=== PATIENT | female | born 1990 | race Caucasian/White ===

== ENCOUNTER 2020-03-05 08:18 | Inpatient (IN) | payer OTHER, SELFPAY ==
[2020-03-05] VITALS (10 sets, daily range): BP systolic 135–164; BP diastolic 79–115; PULSE 70–82; RESP 16–20; TEMP 36.2–37; O2SAT 95–100; BMI 28.2
--- NOTE | ~2020-03-05 | CT_ITS ---
EXAMINATION: CT abdomen pelvis w con INDICATION: Severe abdominal pain TECHNIQUE: Computed tomographic images of the abdomen and pelvis were obtained after the administrati on of 100 cc of Omnipaque 350 intravenous contrast. The dose-length product (DLP) was 530.49 mGy-cm. Automated exposure control and iterative reconstruction technique were employed. COMPARISON: 01/06/2019 FINDINGS: Minimal dependent atelectasis is present in the lung bases. The heart size is normal. The l iver is diffusely low in attenuation when compared with the spleen, consistent with hepatic steatosis . The spleen, gallbladder, adrenal glands, and left kidney are normal. Nonobstructing stones of the r ight kidney measure up to 2 mm. The pancreas appears edematous. There is a moderate amount of fluid s urrounding the pancreas and tracking into the right anterior pararenal space. No pathologically enlar ged abdominal or pelvic lymph nodes are identified. There is no free intraperitoneal gas or evidence of bowel obstruction. Circumferential wall thickening is again seen in the sigmoid colon. There appea rs to be a large, unchanged diverticulum at the rectosigmoid junction. There are changes of interval right salpingo-oophorectomy. No pathologically enlarged abdominal or pelvic lymph nodes are identifie d. There are no dilated loops of bowel. There are multiple new ventral hernias containing fat, the la rgest of which are seen in the periumbilical region. There are bilateral L5 pars defects with grade 1 anterolisthesis of L5 on S1. IMPRESSION: 1. Acute pancreatitis, likely interstitial edematous pancreatitis with acute peripancreatic fluid col lection. 2. Diffuse hepatic steatosis. 3. Circumferential wall thickening of the sigmoid colon which could relate to inflammation however di rect visualization is recommended if not previously performed. Reviewed, dictated and finalized at location A. IMPRESSION: 1. Acute pancreatitis, likely interstitial edematous pancreatitis with acute pe ripancreatic fluid collection. 2. Diffuse hepatic steatosis. 3. Circumferential wall thickening of the sigmoid colon which could relate to i nflammation however direct visualization is recommended if not previously perfo rmed.
[2020-03-05 08:37] LABS: Basophils Percent Auto 0.6 % (0.2-1.2); Eosinophils Percent Auto 0.4 % (0-4.4); Hematocrit 41.1 % (37.0-47.0); Hemoglobin 14.3 g/dL (12.0-15.0); Immature Granulocyte Absolute 0.02 K/mm3 (0.00-0.031); Immature Granulocyte Percent A 0.3 % (0-0.5); Lymphocytes Absolute Auto 0.92 K/mm3 (0.9-3.2); Lymphocytes Percent Auto 13.8 % (18.3-44.2); Mean Corpuscular HGB Conc 34.8 g/dl (32-36); Mean Corpuscular Hemoglobin 33.7 pg (26-34); Mean Corpuscular Volume 96.9 fl (80-100); Mean Platelet Volume 9.5 fl (7.4-10.4); Monocytes Absolute Auto 0.7 K/mm3 (0.1-0.6); Neutrophils Percent Auto 74.9 % (45.5-73.1); Platelet Count Result 240 k/mm3 (150-375); Red Blood Count 4.24 M/mm3 (4.2-5.4); Red Cell Distribution Width 20.8 % (11.5-14.5); White Blood Count 6.7 K/mm3 (4.5-10.0)
[2020-03-05 08:49] LABS: Add Urine Microscopic? YES; Appearance Urine Clear (Clear); Bacteria Urine Trace /hpf; Bilirubin Urine Negative (Negative); Blood Urine Negative (Negative); Color Urine Yellow (Yellow); Glucose Urine UA Negative (Negative); Ketones Urine Negative (Negative); Leukocyte Esterase Ur Negative LEU/UL (Negative); Mucus Urine Moderate /lpf; Nitrate Urine Negative (Negative); Protein Urine 1+ mg/dL (Negative); RBC Urine 0-2 /hpf (0-2); Specific Grav Ur 1.019 (1.001-1.035); Squamous Epithelial Cell Urine Many /hpf (Few); Urobilinogen Urine Negative mg/dL (<2.0)
[2020-03-05 08:56] LABS: Alanine Aminotransferase 73 U/L (4-35); Albumin Level 3.8 g/dL (3.5-5.1); Alkaline Phosphatase 93 U/L (38-126); Anion Gap 12 mmol/L (8-16); Aspartate Amino Transferase 221 U/L (14-36); Bilirubin,Total 0.3 mg/dL (0.2-1.3); Blood Urea Nitrogen 8 mg/dL (7-17); Calcium 8.4 mg/dL (8.4-10.2); Carbon Dioxide 23 mmol/L (22-30); Chloride 105 mmol/L (98-107); Estimated CRCL calculation 131 ml/min; Estimated Glomerular Filt Rate > 60; Glucose 103 mg/dL (65-105); Potassium 2.9 mmol/L (3.4-5.0); Sodium 140 mmol/L (137-145)
[2020-03-05 09:05] LABS: Lipase 1444 U/L (23-300)
--- NOTE | 2020-03-05 09:05 | ED.ABDPAIN ---
HPI - Abdominal Pain General Chief Complaint: Abdominal Pain Stated Complaint: ABD Pain Time Seen by Provider: 03/05/20 09:00 Source: patient Mode of arrival: ambulatory Limitations: no limitations History of Present Illness HPI narrative: Patient presents with severe upper abdominal pain. She says is 10 out of 10. Similar to when she had her burst ovary. She has had no fever. She has severe nausea but no vomiting. She has no diarrhea or constipation. She has a history of right fallopian tube and oophorectomy. MD elicited complaint: abdominal pain Pertinent past history: other (Right fallopian tube and oophorectomy) Onset (ago): hour(s) Pain Consistency: constant Location: LUQ and RUQ Severity: severe Pain scale (0-10): 10 Quality: stabbing Radiation: none Migration to: no migration Exacerbating factors: nothing Relieving factors: nothing Associated symptoms: nausea Related Data Home Medications Medication Instructions Recorded Confirmed No Home Medications 03/05/20 03/05/20 Allergies Allergy/AdvReac Type Severity Reaction Status Date / Time No Known Allergies Allergy Verified 03/05/20 08:21 Review of Systems Review of Systems: Narrative: CONSTITUTIONAL: Denies fever, chills, or sweats. EYES: Denies visual changes, redness, or discharge. ENT: Denies rhinorrhea, congestion, sore throat, or otalgia. CARDIOVASCULAR: Denies chest pain, palpitations, or edema. RESPIRATORY: Denies cough or dyspnea. GASTROINTESTINAL: She has abdominal pain, nausea, but not vomiting, or diarrhea. GENITOURINARY: Denies dysuria or hematuria. SKIN: Denies rash or itching. MUSCULOSKELETAL: Denies back pain, joint pain, or myalgia. NEUROLOGIC: Denies headache, numbness, or weakness. All systems reviewed & are unremarkable except as noted in HPI and below PMFSH Past Medical History Medical History (Updated 03/05/20 @ 10:15 by Constance Hoang MD) Anxiety Surgical History Surgical History History of oophorectomy History of partial hysterectomy Social History Social History Gender identity (if verbalized by the patient): Female Exam Narrative: Exam Narrative: GENERAL: Laying on her right side crying. HEAD: Normocephalic, atraumatic. ENT: Nares clear, no rhinorrhea or epistaxis. Mucous membranes moist. NECK: Supple. CHEST: Clear to auscultation. No respiratory distress. HEART: Regular rate and rhythm. No murmur heard. Normal peripheral pulses. ABDOMEN: Soft, nontender, nondistended. EXTREMITIES: Normal range of motion. No edema. SKIN: Warm, dry, no rash. NEURO: No focal deficits. Alert and oriented x3. PSYCH: Crying Course Reevaluation(s) Reevaluation #1: Went in to check on the patient and tell her about the pancreatitis. She is never had it before. She does drink a lot of alcohol. She does not want her mother to know that alcohol causes pancreatitis. She agrees with admission. Date: 03/05/20 Time: 10:19 Vital Signs Vital signs: Vital Signs Temperature 98.6 F 03/05/20 08:16 Pulse Rate 82 03/05/20 08:16 Respiratory Rate 20 03/05/20 08:16 Blood Pressure 142/107 H 03/05/20 08:16 Pulse Oximetry 100 03/05/20 08:16 Temperature 98.6 F 03/05/20 08:16 Pulse Rate 82 03/05/20 08:16 Respiratory Rate 20 03/05/20 08:16 Blood Pressure 142/107 H 03/05/20 08:16 Pulse Oximetry 100 03/05/20 08:16 MDM - Abdominal Pain Medical Records Attestation: I reviewed the patient's medical records. Lab Data Attestation: I reviewed the patient's lab results. Result diagrams: 03/05/20 08:25 03/05/20 08:25 Labs: Lab Results 03/05/20 03/05/20 03/05/20 Range/Units 08:25 08:25 08:28 WBC 6.7 (4.5-10.0) K/mm3 RBC 4.24 (4.2-5.4) M/mm3 Hgb 14.3 (12.0-15.0) g/dL Hct 41.1 (37.0-47.0) % MCV 96.9 (80-100) fl MCH 33.7 (26-34) pg MCHC 34.8 (32-36) g/dl RDW 20.8 H (11.5-14.5)
[2020-03-05] MEDS: MORPHINE SULFATE 4 MG/ML INJ IV PUSH (09:34)
[2020-03-05] MEDS: ONDANSETRON INJ 4 MG/2 ML VIAL IV PUSH ×3 (09:34→22:25)
[2020-03-05] MEDS: SODIUM CHLORIDE 0.9% IV 1,000 ML 500 ML IV CONT (10:14)
[2020-03-05] MEDS: KCL 20 MEQ/SW 100 ML 100 ML 50 MEQ IVPB (10:14)
[2020-03-05] MEDS: SODIUM CHLORIDE 0.9% IV 1,000 ML 125 ML IV CONT ×2 (11:27→20:02)
--- NOTE | 2020-03-05 12:16 | ADMGEN ---
This patient, Audrey Valentin, was admitted to [facility] Surg Room 309-01 @ 1215. Patient/family oriented to hospital policies and general routines including ID bracelet, bed and alarms, visiting hours, pain management, procedures, bathroom and other care routines, personal items, smoking policy, room service/diet, and visiting hours. Valuables list has been completed. Information on how to activate the Rapid Response Team has been discussed. Patient/Family are encouraged to report perceived risks to care and to ask questions if they do not understand what they are told or what they should do.
--- NOTE | 2020-03-05 13:01 | PM.IMHP ---
H&P: HPI History of Present Illness Date/Time: 03/05/20 13:01 Chief complaint: PANCREATITIS Narrative: Audrey Valentin is a 30 year old female Who has a past history of alcoholism. The patient stated that she did go to alcohol rehab this summer. The patient stated that she had a miscarriage approximately 2 weeks ago and had been binge drinking. She cannot quantify how much factors she drinks every day. But she has been binge drinking for the last 2 weeks. She does not want her family members to know about this. although she has designated her mother to be the durable power commercial attorney. She does not want any information release to her mother at this time. The patient stated that she was nauseated yesterday and vomiting somewhat. And then this morning she had severe discomfort to her abdomen. Her potassium was noted to be 2.9. And she was supplemented with potassium. She was started on IV fluids. She was given Dilaudid her discomfort. AST is 221, ALT is 73 lipase is 1444. The patient did not take anything for discomfort at home. Nor has she had any of his in the past. She stated she has had gastritis in the past and she is calling this gastritis in front of her mother. I spent approximately 40 minutes with the patient. Date of service is 03/05/2020. Review of Systems Review of Systems: All systems reviewed & are unremarkable except as noted in HPI and below Constitutional: Constitutional: Reports as per HPI and Reports no additional constitutional complaints Eyes: Eyes: Reports as per HPI and Reports no additional eye complaints ENT: Reports system reviewed and no additional complaints, except as documented and Reports Normal hearing present Cardiovascular: Cardiovascular: Reports no additional cardiovascular complaints Respiratory: Respiratory: Reports no additional respiratory complaints and Reports no additional respiratory complaints Gastrointestinal: Gastrointestinal: Reports as per HPI and Reports no additional gastrointestinal complaints Musculoskeletal: Musculoskeletal: Reports no additional musculoskeletal complaints Integumentary/Breasts: Skin/Breast: Reports system reviewed and no additional complaints, except as docu and Reports as per HPI Neurologic: Reports system reviewed and no additional complaints, except as documented, Reports as per HPI and Reports Normal hearing present Psychiatric: Psychiatric: Reports no additional psychiatric complaints and Reports as per HPI Endocrine: Endocrine: Reports no additional endocrine complaints Hematologic/Lymphatic: Hematologic/Lymphatic: Reports no additional hematologic/lymphatic complaints Allergic/Immunologic: Allergic/Immunologic: Reports no additional allergic/immunologic complaints [facility] Past Medical History Medical History (Updated 03/05/20 @ 13:18 by Reyna Young NP) Alcoholism Anxiety Tobacco abuse Surgical History Surgical History History of oophorectomy History of partial hysterectomy Family History Family History Sibling Chest pain Grandparent Cancer Mother Hyperthyroidism Hypertension Social History Social History (Updated 03/05/20 @ 13:20 by Reyna Young NP) Social History: the patient stated that she has been binge drinking for at least 2 weeks with vodka. She had gone through alcohol rehab the summer and does not want her family to know that she had a lapse. She cannot quantify how much she has been drinking the last 2 weeks. She said she had a miscarriage it had been very sad about and had been drinking heavily since then. She is and now has a fiancee. She has 1 child. She is a full code. She works at [employer] at this time. She smokes about a pack cigarettes a day for many years. Occasionally smokes marijuana. No other illicit drugs. She just moved in with her mother. Smoking packs per day: 1 Smo
[2020-03-05 13:12] LABS: Anion Gap 12 mmol/L (8-16); Blood Urea Nitrogen 10 mg/dL (7-17); Calcium 8.7 mg/dL (8.4-10.2); Carbon Dioxide 21 mmol/L (22-30); Chloride 107 mmol/L (98-107); Estimated CRCL calculation 129 ml/min; Estimated Glomerular Filt Rate > 60; Glucose 106 mg/dL (65-105); Potassium 3.1 mmol/L (3.4-5.0); Sodium 140 mmol/L (137-145)
[2020-03-05] MEDS: NICOTINE (*PBKC) 21 MG PATCH 1 PATCH TRANSDERM (14:03)
[2020-03-05] MEDS: KETOROLAC 15 MG/ML VIAL (*BKC) IV PUSH (20:02)
[2020-03-05] MEDS: FAMOTIDINE 20 MG/2 ML VIAL IV PUSH (20:03)
[2020-03-06] VITALS (13 sets, daily range): BP systolic 129–162; BP diastolic 90–110; PULSE 62–84; RESP 16–18; TEMP 36.4–37.4; O2SAT 97–100
[2020-03-06] MEDS: ONDANSETRON INJ 4 MG/2 ML VIAL IV PUSH (04:47)
[2020-03-06] MEDS: SODIUM CHLORIDE 0.9% IV 1,000 ML 125 ML IV CONT ×2 (04:47→15:38)
[2020-03-06 06:25] LABS: Alanine Aminotransferase 54 U/L (4-35); Alkaline Phosphatase 81 U/L (38-126); Anion Gap 6 mmol/L (8-16); Aspartate Amino Transferase 103 U/L (14-36); Bilirubin,Total 0.7 mg/dL (0.2-1.3); Blood Urea Nitrogen 5 mg/dL (7-17); Calcium 7.6 mg/dL (8.4-10.2); Carbon Dioxide 26 mmol/L (22-30); Chloride 105 mmol/L (98-107); Cholesterol 131 mg/dL (0-200); Estimated CRCL calculation 152 ml/min; Estimated Glomerular Filt Rate > 60; Glucose 82 mg/dL (65-105); HDL Direct 55 mg/dL; Lipase 811 U/L (23-300); Magnesium 1.6 mg/dL (1.6-2.3); Potassium 2.8 mmol/L (3.4-5.0); Sodium 137 mmol/L (137-145); Triglycerides 107 mg/dL (<150)
[2020-03-06 06:33] LABS: LDL Cholesterol Direct 69 mg/dL
--- NOTE | 2020-03-06 08:04 | PC.NURSE ---
2001 toradol administration was documented under the wrong nurse. Toradol was actually administered by Kusum Ryan Rn.
[2020-03-06] MEDS: FAMOTIDINE 20 MG/2 ML VIAL IV PUSH ×2 (08:31→21:12)
[2020-03-06] MEDS: FOLIC ACID 1 MG/0.2 ML INJ IV PUSH (08:31)
[2020-03-06] MEDS: NICOTINE (*PBKC) 21 MG PATCH 1 PATCH TRANSDERM (08:31)
[2020-03-06] MEDS: THIAMINE HCL 200 MG/2 ML VIAL 100 MG IV PUSH (08:32)
[2020-03-06] MEDS: hydrALAZINE HCL 20 MG/ML VIAL 10 MG IV PUSH ×2 (08:42→16:26)
[2020-03-06] MEDS: KETOROLAC 15 MG/ML VIAL (*BKC) IV PUSH ×2 (10:50→17:09)
[2020-03-06] MEDS: chlordiazePOXIDE 25 MG CAPSULE PO (12:34)
[2020-03-06 12:58] LABS: Magnesium 1.7 mg/dL (1.6-2.3); Potassium 3.3 mmol/L (3.4-5.0)
[2020-03-06] MEDS: POTASSIUM CHLORIDE 20 MEQ TABLET 40 MEQ PO (13:28)
[2020-03-06 13:32] LABS: Anion Gap 8 mmol/L (8-16); Blood Urea Nitrogen 3 mg/dL (7-17); Calcium 8.2 mg/dL (8.4-10.2); Carbon Dioxide 25 mmol/L (22-30); Chloride 101 mmol/L (98-107); Estimated CRCL calculation 152 ml/min; Estimated Glomerular Filt Rate > 60; Glucose 83 mg/dL (65-105); Magnesium 1.6 mg/dL (1.6-2.3); Potassium 3.3 mmol/L (3.4-5.0); Sodium 134 mmol/L (137-145)
--- NOTE | 2020-03-06 14:19 | PM.IMPN ---
Progress Note: A&P Assessment and Plan (1) Acute pancreatitis: Qualifiers: Acute pancreatitis complication: unspecified Pancreatitis type: unspecified pancreatitis type Qualified Code(s): K85.90 - Acute pancreatitis without necrosis or infection, unspecified Code(s): K85.90 - Acute pancreatitis without necrosis or infection, unspecified Status: Acute Assessment and Plan: 03/06/20 14:19 patient is a 40-year-old female with history of alcohol abuse is see has been off alcohol for sometime however patient had a miscarriage 2 weeks ago and since then see has been depressed and had been drinking alcohol for daily basis, yesterday patient was at work developed severe abdominal pain nausea pain was unbearable EMS was called and patient was brought to the emergency department further evaluation, patient is a CT scan of the abdomen which shows acute pancreatitis and circumferential wall thickening of the sigmoid colon which could relate to inflammation however direct visualization is recommended if not previously performed. most likely acute pancreatitis secondary to alcohol abuse will keep the patient NPO and hydrate the patient and monitor lipase levels, will also start the patient on CIWA protocol and Librium as needed, and concerning sigmoid colon consult GI for further recommendation, once clinically stable will have a PT OT evaluate the patient (2) Alcoholism: Code(s): F10.20 - Alcohol dependence, uncomplicated Status: Chronic Assessment and Plan: will place the patient on CIWA protocol and monitor (3) Colitis: Code(s): K52.9 - Noninfective gastroenteritis and colitis, unspecified Status: Acute Assessment and Plan: will consult GI for further recommendation Time Spent With Patient Time with patient: 15 - 25 minutes Subjective Date/time seen: 03/06/20 14:19 patient is a 40-year-old female with history of alcohol abuse is see has been off alcohol for sometime however patient had a miscarriage 2 weeks ago and since then see has been depressed and had been drinking alcohol for daily basis, yesterday patient was at work developed severe abdominal pain nausea pain was unbearable EMS was called and patient was brought to the emergency department further evaluation, patient is a CT scan of the abdomen which shows acute pancreatitis and circumferential wall thickening of the sigmoid colon which could relate to inflammation however direct visualization is recommended if not previously performed. most likely acute pancreatitis secondary to alcohol abuse will keep the patient NPO and hydrate the patient and monitor lipase levels, will also start the patient on CIWA protocol and Librium as needed, and concerning sigmoid colon consult GI for further recommendation, once clinically stable will have a PT OT evaluate the patient Review of Systems Review of Systems: All systems reviewed & are unremarkable except as noted in HPI and below Exam Const: General: comfortable and no acute distress HENMT: General nose exam: Normal nares present Eyes: General: appearance normal, both eyes and all related structures Sclera: sclerae normal Neck: Neck: supple Resp: Effort & Inspection: normal respiratory effort Auscultation: clear to auscultation bilaterally Cardio: Rate: regular rate Rhythm: regular rhythm GI: Auscultation: normal bowel sounds Skin: General skin exam: normal color Neuro: Speech: normal speech Sensory Exam: normal sensation Extrem: General: normal to inspection Psych: Affect: Anxious affect present Objective Data Vital Signs Vital Signs: Vital Signs - 24 hr 03/05/20 14:27 03/05/20 16:00 03/05/20 16:28 Temperature Pulse Rate Pulse Rate [Right Brachial Monitor] 70 Respiratory Rate Blood Pressure 154/102 H 162/115 H 164/115 H Pulse Oximetry 03/05/20 20:00 03/05/20 22:00 03/06/20 00:00 Temperature 97.1 F L Pulse Rate 70 74
[2020-03-06] MEDS: LABETALOL HCL INJ 100 MG/20 ML VIAL IV PUSH (22:03)
[2020-03-07] MEDS: SODIUM CHLORIDE 0.9% IV 1,000 ML 125 ML IV CONT ×3 (00:29→22:00)
[2020-03-07 02:18] VITALS: BP 145/106; PULSE 67
[2020-03-07] MEDS: hydrALAZINE HCL 20 MG/ML VIAL 10 MG IV PUSH (02:25)
[2020-03-07] MEDS: KETOROLAC 15 MG/ML VIAL (*BKC) IV PUSH ×2 (02:26→16:24)
[2020-03-07 03:29] VITALS: BP 129/83; PULSE 70
[2020-03-07 05:56] VITALS: BP 121/87; PULSE 78; RESP 18; TEMP 36.7; O2SAT 99
[2020-03-07 06:37] LABS: Hemoglobin 12.9 g/dL (12.0-15.0); Mean Corpuscular HGB Conc 33.9 g/dl (32-36); Mean Corpuscular Hemoglobin 33.9 pg (26-34); Mean Platelet Volume 10.3 fl (7.4-10.4); Platelet Count Result 154 k/mm3 (150-375); Red Cell Distribution Width 19.7 % (11.5-14.5); White Blood Count 6.3 K/mm3 (4.5-10.0)
[2020-03-07 06:47] LABS: Alanine Aminotransferase 41 U/L (4-35); Albumin Level 3.1 g/dL (3.5-5.1); Alkaline Phosphatase 90 U/L (38-126); Anion Gap 8 mmol/L (8-16); Aspartate Amino Transferase 82 U/L (14-36); Bilirubin,Total 0.5 mg/dL (0.2-1.3); Calcium 8.1 mg/dL (8.4-10.2); Carbon Dioxide 23 mmol/L (22-30); Chloride 103 mmol/L (98-107); Estimated CRCL calculation 152 ml/min; Estimated Glomerular Filt Rate > 60; Glucose 68 mg/dL (65-105); Lipase 404 U/L (23-300); Magnesium 1.5 mg/dL (1.6-2.3); Potassium 3.4 mmol/L (3.4-5.0); Sodium 134 mmol/L (137-145)
[2020-03-07 07:55] LABS: Blood Urea Nitrogen < 2 mg/dL (7-17)
[2020-03-07] MEDS: THIAMINE HCL 200 MG/2 ML VIAL 100 MG IV PUSH (08:42)
[2020-03-07] MEDS: FAMOTIDINE 20 MG/2 ML VIAL IV PUSH ×2 (08:42→20:57)
[2020-03-07] MEDS: NICOTINE (*PBKC) 21 MG PATCH 1 PATCH TRANSDERM (08:48)
[2020-03-07] MEDS: MAGNESIUM SULF 2 GM/WATER 50ML 2 GM/50 ML BAG IVPB (09:25)
--- NOTE | 2020-03-07 10:10 | WPDGICN ---
Assessment and Plan Assessment and plan (1) Acute pancreatitis: Qualifiers: Acute pancreatitis complication: unspecified Pancreatitis type: unspecified pancreatitis type Qualified Code(s): K85.90 - Acute pancreatitis without necrosis or infection, unspecified Code(s): K85.90 - Acute pancreatitis without necrosis or infection, unspecified Status: Acute Assessment and Plan: related to alcohol abuse will try CL diet, if able to tolerate then will complete bowel prep and colonoscopy tomorrow (had abnormal thickening in sigmoid by CT scan that is concerning), she never had a colonoscopy (2) Alcoholism: Code(s): F10.20 - Alcohol dependence, uncomplicated Status: Chronic Assessment and Plan: thiamine, mvi and monitor for withdrawal (3) Abnormal CT scan, sigmoid colon: Code(s): R93.3 - Abnormal findings on diagnostic imaging of other parts of digestive tract Status: Acute (4) Abdominal pain: Code(s): R10.9 - Unspecified abdominal pain Status: Acute Assessment and Plan: from pancreatitis, better today GI Consult Note Consult date/time: 03/07/20 10:10 Reason for consult: pancreatitis and abnormal sigmoid by CT scan HPI: Audrey Valentin is a 30 year old female who is an alcoholic, also peritonitis last year treated with surgery (apparently had fallopian tubal rupture) in [place]. She was in rehab this summer, abstinent for 2 months but about 2 weeks ago had miscarriage then started drinking again at least one fifth daily. She came to ER with 2 days of severe abdominal pain, nausea and vomiting. CT scan showed acute pancreatitis, likely interstitial edematous pancreatitis with acute peripancreatic fluid collection, diffuse hepatic steatosis and circumferential wall thickening of the sigmoid colon which could relate to inflammation however direct visualization is recommended if not previously performed. Never had a colonoscopy. Denies blood in stools, day of admission had diarrhea. Blood work potassium 2.9. AST is 221, ALT is 73 lipase is 1444. Review of Systems Constitutional: Constitutional: Denies chills and Denies headache(s) Eyes: Eyes: Denies blurry vision ENT: Reports Normal hearing present, Denies headache(s) and Denies neck pain Cardiovascular: Cardiovascular: Denies chest pain and Denies dyspnea Respiratory: Respiratory: Denies dyspnea Gastrointestinal: Gastrointestinal: Reports abdominal pain and Reports nausea Genitourinary: Genitourinary: Denies dysuria Musculoskeletal: Musculoskeletal: Denies neck pain Integumentary/Breasts: Skin/Breast: Denies dry skin Neurologic: Reports Normal hearing present, Denies headache(s) and Denies weakness Psychiatric: Psychiatric: Denies anxiety Endocrine: Endocrine: Denies change in body appearance Hematologic/Lymphatic: Hematologic/Lymphatic: Denies easy bleeding Allergic/Immunologic: Allergic/Immunologic: Denies urticaria PMFSH Past Medical History Medical History (Updated 03/07/20 @ 10:18 by Júnior Tarango MD) Abdominal pain Abnormal CT scan, sigmoid colon Alcoholism Anxiety Tobacco abuse Surgical History Surgical History History of oophorectomy History of partial hysterectomy Family History Family History Sibling Chest pain Grandparent Cancer Mother Hyperthyroidism Hypertension Social History Social History (Updated 03/05/20 @ 13:20 by Reyna Young NP) Social History: the patient stated that she has been binge drinking for at least 2 weeks with vodka. She had gone through alcohol rehab the summer and does not want her family to know that she had a lapse. She cannot quantify how much she has been drinking the last 2 weeks. She said she had a miscarriage it had been very sad about and had been drinking heavily since then. She is and no
[2020-03-07 13:20] LABS: Magnesium 2.2 mg/dL (1.6-2.3)
--- NOTE | 2020-03-07 13:59 | PM.IMPN ---
Progress Note: A&P Assessment and Plan (1) Acute pancreatitis: Qualifiers: Acute pancreatitis complication: unspecified Pancreatitis type: unspecified pancreatitis type Qualified Code(s): K85.90 - Acute pancreatitis without necrosis or infection, unspecified Code(s): K85.90 - Acute pancreatitis without necrosis or infection, unspecified Status: Acute Assessment and Plan: 03/07/20 13:59 patient is a 40-year-old female with history of alcohol abuse is see has been off alcohol for sometime however patient had a miscarriage 2 weeks ago and since then see has been depressed and had been drinking alcohol for daily basis, yesterday patient was at work developed severe abdominal pain nausea pain was unbearable EMS was called and patient was brought to the emergency department further evaluation, patient is a CT scan of the abdomen which shows acute pancreatitis and circumferential wall thickening of the sigmoid colon which could relate to inflammation however direct visualization is recommended if not previously performed. most likely acute pancreatitis secondary to alcohol abuse will keep the patient NPO and hydrate the patient and monitor lipase levels, will also start the patient on CIWA protocol and Librium as needed, and concerning sigmoid colon consult GI for further recommendation, once clinically stable will have a PT OT evaluate the patient. today patient is lipase are trending, abdominal pain is improved and denies any nausea or vomiting, is seen by GI and to further evaluate her colitis patient is scheduled to have a colonoscopy tomorrow and further recommendation to follow, will continue CIWA protocol and monitor (2) Alcoholism: Code(s): F10.20 - Alcohol dependence, uncomplicated Status: Chronic Assessment and Plan: will place the patient on CIWA protocol and monitor (3) Colitis: Code(s): K52.9 - Noninfective gastroenteritis and colitis, unspecified Status: Acute Assessment and Plan: will consult GI for further recommendation Subjective Date/time seen: 03/07/20 13:59 patient is a 40-year-old female with history of alcohol abuse is see has been off alcohol for sometime however patient had a miscarriage 2 weeks ago and since then see has been depressed and had been drinking alcohol for daily basis, yesterday patient was at work developed severe abdominal pain nausea pain was unbearable EMS was called and patient was brought to the emergency department further evaluation, patient is a CT scan of the abdomen which shows acute pancreatitis and circumferential wall thickening of the sigmoid colon which could relate to inflammation however direct visualization is recommended if not previously performed. most likely acute pancreatitis secondary to alcohol abuse will keep the patient NPO and hydrate the patient and monitor lipase levels, will also start the patient on CIWA protocol and Librium as needed, and concerning sigmoid colon consult GI for further recommendation, once clinically stable will have a PT OT evaluate the patient. today patient is lipase are trending, abdominal pain is improved and denies any nausea or vomiting, is seen by GI and to further evaluate her colitis patient is scheduled to have a colonoscopy tomorrow and further recommendation to follow, will continue CIWA protocol and monitor Review of Systems Review of Systems: All systems reviewed & are unremarkable except as noted in HPI and below Exam Const: General: comfortable and no acute distress HENMT: General nose exam: Normal nares present Mouth: Yes moist mucous membranes Eyes: General: appearance normal, both eyes and all related structures Sclera: sclerae normal Neck: Neck: supple Resp: Effort & Inspection: normal respiratory effort Auscultation: clear to auscultation bilaterally Cardio: Rate: regular rate Rhythm: regular rhythm GI: Auscultation: normal bowel sounds Other: diffuse
[2020-03-07 14:00] VITALS: BP 123/75; PULSE 76; RESP 18; TEMP 36.9; O2SAT 99
[2020-03-07 14:04] LABS: Anion Gap 8 mmol/L (8-16); Blood Urea Nitrogen 2 mg/dL (7-17); Calcium 8.2 mg/dL (8.4-10.2); Carbon Dioxide 24 mmol/L (22-30); Chloride 100 mmol/L (98-107); Estimated CRCL calculation 152 ml/min; Estimated Glomerular Filt Rate > 60; Glucose 133 mg/dL (65-105); Potassium 3.1 mmol/L (3.4-5.0); Sodium 132 mmol/L (137-145)
[2020-03-07] MEDS: FOLIC ACID 1 MG/0.2 ML INJ IV PUSH (16:20)
--- NOTE | 2020-03-07 16:39 | WPDANESEPP ---
Anes - Eval Pre Procedure Procedure: Operation Date: 03/08/20 12:15 Proposed Procedures p Colonoscopy - Júnior Tarango MD Date/Time: 03/07/20 16:39 Pre Op Diagnosis: PANCREATITIS Patient Data Age: 30 Gender: F Height: 5 ft 7 in Weight: 81.7 kg Last Vital Signs Temp 98.4 F 03/07/20 14:00 Pulse 76 03/07/20 14:00 Resp 18 03/07/20 14:00 BP 123/75 03/07/20 14:00 Pulse Ox 99 03/07/20 14:00 Allergies Allergy/AdvReac Type Severity Reaction Status Date / Time No Known Allergies Allergy Verified 03/05/20 08:21 Home Medications Medication Instructions Recorded Confirmed Type No Home Medications 03/05/20 03/05/20 History Laboratory Tests 03/07/20 03/07/20 03/07/20 05:58 05:58 12:48 WBC 6.3 K/mm3 K/mm3 (4.5-10.0) RBC 3.80 M/mm3 L M/mm3 (4.2-5.4) Hgb 12.9 g/dL g/dL (12.0-15.0) Hct 38.0 % % (37.0-47.0) MCV 100.0 fl fl (80-100) MCH 33.9 pg pg (26-34) MCHC 33.9 g/dl g/dl (32-36) RDW 19.7 % H % (11.5-14.5) Plt Count 154 k/mm3 k/mm3 (150-375) MPV 10.3 fl fl (7.4-10.4) Sodium 134 mmol/L L mmol/L (137-145) Potassium 3.4 mmol/L mmol/L (3.4-5.0) Chloride 103 mmol/L mmol/L (98-107) Carbon Dioxide 23 mmol/L mmol/L (22-30) Anion Gap 8 mmol/L mmol/L (8-16) BUN < 2 mg/dL L mg/dL (7-17) Creatinine 0.50 mg/dL L mg/dL (0.7-1.0) Estim Creat Clear Calc 152 ml/min ml/min Estimated GFR > 60 (59 - ) Glucose 68 mg/dL mg/dL (65-105) Calcium 8.1 mg/dL L mg/dL (8.4-10.2) Magnesium 1.5 mg/dL L mg/dL 2.2 mg/dL mg/dL (1.6-2.3) (1.6-2.3) Total Bilirubin 0.5 mg/dL mg/dL (0.2-1.3) AST 82 U/L H U/L (14-36) ALT 41 U/L H U/L (4-35) Alkaline Phosphatase 90 U/L U/L (38-126) Total Protein 6.0 g/dL L g/dL (6.3-8.2) Albumin 3.1 g/dL L g/dL (3.5-5.1) Lipase 404 U/L H U/L (23-300) 03/07/20 13:35 WBC RBC Hgb Hct MCV MCH MCHC RDW Plt Count MPV Sodium 132 mmol/L L mmol/L (137-145) Potassium 3.1 mmol/L L mmol/L (3.4-5.0) Chloride 100 mmol/L mmol/L (98-107) Carbon Dioxide 24 mmol/L mmol/L (22-30) Anion Gap 8 mmol/L mmol/L (8-16) BUN 2 mg/dL L mg/dL (7-17) Creatinine 0.50 mg/dL L mg/dL (0.7-1.0) Estim Creat Clear Calc 152 ml/min ml/min Estimated GFR > 60 (59 - ) Glucose 133 mg/dL H mg/dL (65-105) Calcium 8.2 mg/dL L mg/dL (8.4-10.2) Magnesium Total Bilirubin AST ALT Alkaline Phosphatase Total Protein Albumin Lipase Patient hx anesthesia problems: none Family hx anesthesia problems: none PMFSH Past Medical History Medical History Abdominal pain Abnormal CT scan, sigmoid colon Alcoholism Anxiety Tobacco abuse Surgical History Surgical History History of oophorectomy History of partial hysterectomy Family History Family History Sibling Chest pain Grandparent Cancer Mother Hyperthyroidism Hypertension Social History Social History Social History: the patient stated that she has been binge drinking for at least 2 weeks with vodka. She had gone through alcohol rehab the summer and does not want her family to know that she had a lapse. She cannot quantify how much she has been drinking the last 2 weeks. She said she had a miscarriage it had been very sad about and had been drinking heavily since then. She is and now has a fiancee. She has 1 child. She is a
[2020-03-07] MEDS: BISACODYL 5 MG TABLET EC 20 MG PO (17:35)
[2020-03-07] MEDS: PEG (High)/E-LYTE SOLN 4,000 ML BTL 4000 ML PO (17:35)
[2020-03-07] MEDS: ONDANSETRON INJ 4 MG/2 ML VIAL IV PUSH ×2 (18:25→22:15)
[2020-03-07] MEDS: polyethylene glycoL 3350 238 GM BOTTLE PO (21:57)
[2020-03-07 22:00] VITALS: BP 134/90; PULSE 74; RESP 18; TEMP 36.6; O2SAT 99
[2020-03-08] VITALS (8 sets, daily range): BP systolic 113–168; BP diastolic 78–99; PULSE 67–80; RESP 17–18; TEMP 36.1–36.4; O2SAT 99–100
[2020-03-08] MEDS: KETOROLAC 15 MG/ML VIAL (*BKC) IV PUSH ×2 (00:47→08:34)
[2020-03-08] MEDS: MAGNESIUM CITRATE 300 ML BTL 150 ML PO (06:02)
[2020-03-08] MEDS: hydrALAZINE HCL 20 MG/ML VIAL 10 MG IV PUSH (06:07)
[2020-03-08] MEDS: ONDANSETRON INJ 4 MG/2 ML VIAL IV PUSH (06:08)
[2020-03-08 06:09] LABS: Hematocrit 38.5 % (37.0-47.0); Hemoglobin 13.2 g/dL (12.0-15.0); Mean Corpuscular HGB Conc 34.3 g/dl (32-36); Mean Corpuscular Hemoglobin 34.6 pg (26-34); Mean Corpuscular Volume 100.8 fl (80-100); Mean Platelet Volume 11.2 fl (7.4-10.4); Platelet Count Result 177 k/mm3 (150-375); Red Blood Count 3.82 M/mm3 (4.2-5.4); Red Cell Distribution Width 20.2 % (11.5-14.5); White Blood Count 6.3 K/mm3 (4.5-10.0)
[2020-03-08 06:27] LABS: Alanine Aminotransferase 40 U/L (4-35); Albumin Level 3.2 g/dL (3.5-5.1); Alkaline Phosphatase 94 U/L (38-126); Anion Gap 6 mmol/L (8-16); Aspartate Amino Transferase 65 U/L (14-36); Bilirubin,Total 0.4 mg/dL (0.2-1.3); Blood Urea Nitrogen 2 mg/dL (7-17); Calcium 8.5 mg/dL (8.4-10.2); Carbon Dioxide 24 mmol/L (22-30); Chloride 104 mmol/L (98-107); Estimated CRCL calculation 152 ml/min; Estimated Glomerular Filt Rate > 60; Glucose 83 mg/dL (65-105); Lipase 530 U/L (23-300); Potassium 3.5 mmol/L (3.4-5.0); Sodium 134 mmol/L (137-145)
[2020-03-08] MEDS: SODIUM CHLORIDE 0.9% IV 1,000 ML 125 ML IV CONT (06:45)
--- NOTE | 2020-03-08 07:35 | WPDANESEPPF ---
Anes - Initial Pre Proc Eval Procedure: Operation Date: 03/08/20 12:15 Proposed Procedures p Colonoscopy - Júnior Tarango MD Date/Time: 03/08/20 07:35 Surgeon: Jesus Allison MD Pre Op Diagnosis: PANCREATITIS Patient Data Age: 30 Gender: F Height: 1.7 m Weight: 81.7 kg Last Vital Signs Temp 36.1 C L 03/08/20 06:00 Pulse 67 03/08/20 06:00 Resp 18 03/08/20 06:00 BP 116/80 03/08/20 06:49 Pulse Ox 100 03/08/20 06:00 Allergies Allergy/AdvReac Type Severity Reaction Status Date / Time No Known Allergies Allergy Verified 03/05/20 08:21 Home Medications Medication Instructions Recorded Confirmed Type No Home Medications 03/05/20 03/05/20 History Laboratory Tests 03/07/20 03/07/20 03/07/20 05:58 12:48 13:35 WBC RBC Hgb Hct MCV MCH MCHC RDW Plt Count MPV Sodium 132 mmol/L L mmol/L (137-145) Potassium 3.1 mmol/L L mmol/L (3.4-5.0) Chloride 100 mmol/L mmol/L (98-107) Carbon Dioxide 24 mmol/L mmol/L (22-30) Anion Gap 8 mmol/L mmol/L (8-16) BUN < 2 mg/dL L mg/dL 2 mg/dL L mg/dL (7-17) (7-17) Creatinine 0.50 mg/dL L mg/dL (0.7-1.0) Estim Creat Clear Calc 152 ml/min ml/min Estimated GFR > 60 (59 - ) Glucose 133 mg/dL H mg/dL (65-105) Calcium 8.2 mg/dL L mg/dL (8.4-10.2) Magnesium 2.2 mg/dL mg/dL (1.6-2.3) Total Bilirubin AST ALT Alkaline Phosphatase Total Protein Albumin Lipase 03/08/20 03/08/20 05:32 05:32 WBC 6.3 K/mm3 K/mm3 (4.5-10.0) RBC 3.82 M/mm3 L M/mm3 (4.2-5.4) Hgb 13.2 g/dL g/dL (12.0-15.0) Hct 38.5 % % (37.0-47.0) MCV 100.8 fl H fl (80-100) MCH 34.6 pg H pg (26-34) MCHC 34.3 g/dl g/dl (32-36) RDW 20.2 % H % (11.5-14.5) Plt Count 177 k/mm3 k/mm3 (150-375) MPV 11.2 fl H fl (7.4-10.4) Sodium 134 mmol/L L mmol/L (137-145) Potassium 3.5 mmol/L mmol/L (3.4-5.0) Chloride 104 mmol/L mmol/L (98-107) Carbon Dioxide 24 mmol/L mmol/L (22-30) Anion Gap 6 mmol/L L mmol/L (8-16) BUN 2 mg/dL L mg/dL (7-17) Creatinine 0.50 mg/dL L mg/dL (0.7-1.0) Estim Creat Clear Calc 152 ml/min ml/min Estimated GFR > 60 (59 - ) Glucose 83 mg/dL mg/dL (65-105) Calcium 8.5 mg/dL mg/dL (8.4-10.2) Magnesium 2.0 mg/dL mg/dL (1.6-2.3) Total Bilirubin 0.4 mg/dL mg/dL (0.2-1.3) AST 65 U/L H U/L (14-36) ALT 40 U/L H U/L (4-35) Alkaline Phosphatase 94 U/L U/L (38-126) Total Protein 6.0 g/dL L g/dL (6.3-8.2) Albumin 3.2 g/dL L g/dL (3.5-5.1) Lipase 530 U/L H U/L (23-300) Patient hx anesthesia problems: none Family hx anesthesia problems: none PMFSH Past Medical History Medical History (Updated 03/08/20 @ 07:36 by Luis Hampton MD) Abdominal pain Abnormal CT scan, sigmoid colon Alcoholism Anxiety Depression Gastroesophageal reflux disease HTN (hypertension) Overweight (BMI 25.0-29.9) Tobacco abuse Surgical History Surgical History History of oophorectomy History of partial hysterectomy Family History Family History Sibling Chest pain Grandparent Cancer Mother Hyperthyroidism Hypertension Social History Social History Social History: the patient stated that she has been binge drinking for at least 2 weeks with vodka. She had gone through alcohol rehab the summer and does not want her family to know that
[2020-03-08] MEDS: LACTATED RINGERS 1,000 ML 150 ML IV CONT (11:39)
--- NOTE | 2020-03-08 12:30 | SUR.OPER ---
PATIENT REQUESTS WE NOT CALL HER MOTHER WITH A ENDO UPDATE UNTIL PT IS RETURNING TO HER ROOM.
[2020-03-08] MEDS: FAMOTIDINE 20 MG/2 ML VIAL IV PUSH (14:37)
[2020-03-08] MEDS: FOLIC ACID 1 MG/0.2 ML INJ IV PUSH (14:37)
[2020-03-08] MEDS: THIAMINE HCL 200 MG/2 ML VIAL 100 MG IV PUSH (14:37)
--- NOTE | 2020-03-08 14:49 | PM.DS ---
DS: Admitting Diagnosis Admitting Diagnosis Admitting Diagnosis: PANCREATITIS DS: Discharge Diagnosis Discharge Diagnosis (1) Acute pancreatitis: Qualifiers: Acute pancreatitis complication: unspecified Pancreatitis type: unspecified pancreatitis type Qualified Code(s): K85.90 - Acute pancreatitis without necrosis or infection, unspecified Code(s): K85.90 - Acute pancreatitis without necrosis or infection, unspecified Status: Acute Assessment and Plan: 03/07/20 13:59 patient is a 40-year-old female with history of alcohol abuse is see has been off alcohol for sometime however patient had a miscarriage 2 weeks ago and since then see has been depressed and had been drinking alcohol for daily basis, yesterday patient was at work developed severe abdominal pain nausea pain was unbearable EMS was called and patient was brought to the emergency department further evaluation, patient is a CT scan of the abdomen which shows acute pancreatitis and circumferential wall thickening of the sigmoid colon which could relate to inflammation however direct visualization is recommended if not previously performed. most likely acute pancreatitis secondary to alcohol abuse will keep the patient NPO and hydrate the patient and monitor lipase levels, will also start the patient on CIWA protocol and Librium as needed, and concerning sigmoid colon consult GI for further recommendation, once clinically stable will have a PT OT evaluate the patient. today patient is lipase are trending, abdominal pain is improved and denies any nausea or vomiting, is seen by GI and to further evaluate her colitis patient is scheduled to have a colonoscopy tomorrow and further recommendation to follow, will continue CIWA protocol and monitor (2) Alcoholism: Code(s): F10.20 - Alcohol dependence, uncomplicated Status: Chronic Assessment and Plan: will place the patient on CIWA protocol and monitor (3) Colitis: Code(s): K52.9 - Noninfective gastroenteritis and colitis, unspecified Status: Acute Assessment and Plan: will consult GI for further recommendation DS: Summary Hospital Course Reason for hospitalization: Chief complaint: PANCREATITIS Narrative: Audrey Valentin is a 30 year old female Who has a past history of alcoholism. The patient stated that she did go to alcohol rehab this summer. The patient stated that she had a miscarriage approximately 2 weeks ago and had been binge drinking. She cannot quantify how much factors she drinks every day. But she has been binge drinking for the last 2 weeks. She does not want her family members to know about this. although she has designated her mother to be the durable power admitted attorneys. She does not want any information release to her mother at this time. The patient stated that she was nauseated yesterday and vomiting somewhat. And then this morning she had severe discomfort to her abdomen. Her potassium was noted to be 2.9. And she was supplemented with potassium. She was started on IV fluids. She was given Dilaudid her discomfort. AST is 221, ALT is 73 lipase is 1444. The patient did not take anything for discomfort at home. Nor has she had any of his in the past. She stated she has had gastritis in the past and she is calling this gastritis in front of her mother. I spent approximately 40 minutes with the patient. Date of service is 03/05/2020. Hospital Course: 03/07/20 13:59 patient is a 40-year-old female with history of alcohol abuse is see has been off alcohol for sometime however patient had a miscarriage 2 weeks ago and since then see has been depressed and had been drinking alcohol for daily basis, yesterday patient was at work developed severe abdominal pain nausea pain was unbearable EMS was called and patient was brought to the emergency department further evaluation, patient is a CT scan of the abdomen which shows acute pancreatitis and circumferential
== END 2020-03-08 15:40 | disposition home or self-care (01) | DRG 282 ==
LOC: ANHED 10:15 → ANH3MEDSUR 12:44
PROVIDERS: Family Medicine; Internal Medicine Gastroenterology; Nurse Practitioner; Admitting Provider Internal Medicine; Emergency Provider Emergency Medicine; Visit Provider Family Medicine
PROC: 0DJD8ZZ Inspection of Lower Intestinal Tract, Via Natural or Artificial Opening Endoscopic (ICD-10-PCS; CPT 45378; principal; 2020-03-08 12:15)
DX: K85.20 Alcohol induced acute pancreatitis without necrosis or infection (principal); F10.20 Alcohol dependence, uncomplicated; K57.30 Diverticulosis of large intestine without perforation or abscess without bleeding; K64.8 Other hemorrhoids; F17.210 Nicotine dependence, cigarettes, uncomplicated; F32.9 Major depressive disorder, single episode, unspecified; K52.9 Noninfective gastroenteritis and colitis, unspecified
CPT/HCPCS: 36415; 74177; 80048; 80053; 80061; 81001; 81025; 83690; 83735; 84132; 84443; 85025; 85027; 96361; 96374; 96375; 99285; A9270; J0360; J1170; J1885; J2060; J2270; J2405; J2543; J2704; J3411; J3475; J3480; J7030; J7120; Q9967

== ENCOUNTER 2020-10-17 08:43 | Emergency (ER) | payer OTHER, BC, SELFPAY ==
--- NOTE | ~2020-10-17 | CT_ITS ---
EXAMINATION: CT abdomen pelvis w con DATE: 10/17/2020 09:54 INDICATION: Abdominal pain TECHNIQUE: Computed tomography (CT) of the abdomen and pelvis was performed without intravenous contr ast. The dose-length product was 490.98 mGy-cm. Automated exposure control and iterative reconstructi on technique were employed. COMPARISON: 03/05/2020 FINDINGS: Lung bases are unremarkable. No significant pleural or pericardial effusion. No significant vascular abnormality. No lymphadenopathy. There is subtle trace fluid surrounding the pancreatic hea d, suspicious for acute pancreatitis. There is diffuse hepatic steatosis. Gallbladder is present. The re is abnormal thickening of the sigmoid colon and rectum which was persistent on prior examination. Cannot exclude underlying malignancy. Recommend GI consultation. Differential diagnosis includes coli tis/proctitis. There is a 3.7 cm left adnexal mass containing macroscopic fat, consistent with a derm oid. There are multiple ventral hernias containing fat. No evidence for bowel intrusion. No acute oss eous abnormality. IMPRESSION: 1. Subtle fluid surrounding the pancreatic head which appears to be thickened, suspicious for acute p ancreatitis. 2: Persistent significant abnormal thickening of the sigmoid colon and rectum, most likely infectious /inflammatory colitis/proctitis, although given the persistence since prior examination, malignancy s hould be considered in further evaluation is recommended. 3: 3.7 cm left adnexal mass containing fat, consistent with a dermoid. 4: Hepatic steatosis. 5: Multiple ventral abdominal wall hernias containing fat. Reviewed, dictated and finalized at location B. IMPRESSION: 1. Subtle fluid surrounding the pancreatic head which appears to be thickened, suspicious for acute pancreatitis. 2: Persistent significant abnormal thickening of the sigmoid colon and rectum, most likely infectious/inflammatory colitis/proctitis, although given the persi stence since prior examination, malignancy should be considered in further eval uation is recommended. 3: 3.7 cm left adnexal mass containing fat, consistent with a dermoid. 4: Hepatic steatosis. 5: Multiple ventral abdominal wall hernias containing fat.
[2020-10-17 08:43] VITALS: BP 144/114; PULSE 84; RESP 20; TEMP 36.6; O2SAT 100
--- NOTE | 2020-10-17 08:50 | ED.GENADULT ---
HPI - General Adult General Chief complaint: Abdominal Pain Stated complaint: abd pain Source: RN notes reviewed History of Present Illness HPI narrative: Patient presents emergency department from work via EMS for abdominal pain. Patient states that this morning she was straining to go to the restroom and had some pain just to the right of her bellybutton where she has a previous surgical scar she states she then went to reach for something and had severe pain in that area with pain since that time she tried taking 2 ibuprofen work with no relief she notes associated nausea patient states she does have a history of a hernia in this area that is worse with coughing she denies any firmness to the area at this time she denies any fevers or chills chest pain shortness of breath or any other symptom Related Data Allergies Allergy/AdvReac Type Severity Reaction Status Date / Time acetaminophen [From Vicodin] AdvReac Nausea and Verified 10/17/20 08:50 Vomiting hydrocodone [From Vicodin] AdvReac Nausea and Verified 10/17/20 08:50 Vomiting morphine AdvReac Nausea and Verified 10/17/20 08:50 Vomiting Review of Systems Review of Systems: Narrative: Gen.: Denies fevers or chills ENT: Denies congestion Respiratory: Denies shortness of breath or cough CV: Denies chest pain or palpitations GI: See HPI denies burning, urgency, frequency or hematuria Musculoskeletal: Denies back pain or muscle pain Neuro: Denies numbness, tingling, weakness or focal weakness Skin: Denies rash Except as documented, all other systems reviewed and negative PMFSH Past Medical History Medical History Abdominal pain Abnormal CT scan, sigmoid colon Alcoholism Anxiety Depression Gastroesophageal reflux disease HTN (hypertension) Overweight (BMI 25.0-29.9) Tobacco abuse Surgical History Surgical History History of oophorectomy History of partial hysterectomy Family History Family History Sibling Chest pain Grandparent Cancer Mother Hyperthyroidism Hypertension Social History Social History Social History: the patient stated that she has been binge drinking for at least 2 weeks with vodka. She had gone through alcohol rehab the summer and does not want her family to know that she had a lapse. She cannot quantify how much she has been drinking the last 2 weeks. She said she had a miscarriage it had been very sad about and had been drinking heavily since then. She is and now has a fiancee. She has 1 child. She is a full code. She works at [employer] at this time. She smokes about a pack cigarettes a day for many years. Occasionally smokes marijuana. No other illicit drugs. She just moved in with her mother. Smoking packs per day: 1 Smoking cigarettes per day: 20.0 Years smoked: 14 Smoking pack-years: 14.00 Smoking status: Current every day smoker Tobacco type: cigarettes Alcohol intake: current Substance use: current Substance use type: marijuana Other substance usage details: patient states she drinks excessively Gender identity (if verbalized by the patient): Female Spiritual care concerns: No Exam Narrative: Exam Narrative: APPEARANCE: No acute distress, nontoxic, resting in bed HEENT: Normocephalic, atraumatic, OMM RESPIRATORY: No respiratory distress, clear to auscultation bilaterally with no rhonchi wheezing or rales CARDIOVASCULAR: RRR s murmur ABDOMINAL: Soft nondistended tender to palpation to the right of the bellybutton no overlying erythema no palpable hernia palpated no tenderness electrocautery left lower quadrant or right lower quadrant no rebound or guarding MUSCULOSKELETAl: Moves all extremities. No clubbing, cyanosis or edema. NEURO: Awake and alert. Followin
[2020-10-17 09:04] LABS: Basophils Absolute Auto 0.1 K/mm3 (0.0-0.1); Basophils Percent Auto 0.7 % (0.2-1.2); Eosinophils Percent Auto 0.5 % (0-4.4); Hematocrit 42.5 % (37.0-47.0); Hemoglobin 14.5 g/dL (12.0-15.0); Immature Granulocyte Absolute 0.03 K/mm3 (0.00-0.031); Immature Granulocyte Percent A 0.4 % (0-0.5); Lymphocytes Percent Auto 13.4 % (18.3-44.2); Mean Corpuscular HGB Conc 34.1 g/dl (32-36); Mean Corpuscular Hemoglobin 36.4 pg (26-34); Mean Corpuscular Volume 106.8 fl (80-100); Mean Platelet Volume 10.3 fl (7.4-10.4); Monocytes Absolute Auto 0.7 K/mm3 (0.1-0.6); Neutrophils Absolute Auto 5.7 K/mm3 (1.3-6.7); Platelet Count Result 244 k/mm3 (150-375); Red Blood Count 3.98 M/mm3 (4.2-5.4); White Blood Count 7.5 K/mm3 (4.5-10.0)
[2020-10-17 09:16] LABS: Alanine Aminotransferase 93 U/L (4-35); Albumin Level 3.7 g/dL (3.5-5.1); Alkaline Phosphatase 158 U/L (38-126); Anion Gap 9 mmol/L (8-16); Aspartate Amino Transferase 296 U/L (14-36); Blood Urea Nitrogen 9 mg/dL (7-17); Carbon Dioxide 28 mmol/L (22-30); Chloride 99 mmol/L (98-107); Estimated CRCL calculation 99 ml/min; Estimated Glomerular Filt Rate > 60; Glucose 96 mg/dL (65-105); Lipase 145 U/L (23-300); Potassium 3.4 mmol/L (3.4-5.0); Sodium 136 mmol/L (137-145)
[2020-10-17] MEDS: ONDANSETRON INJ 4 MG/2 ML VIAL IV PUSH (09:16)
[2020-10-17] MEDS: fentaNYL CITRATE INJ (*CRX) 100 MCG/2 ML VIAL 50 MCG IV PUSH (09:16)
[2020-10-17] MEDS: SODIUM CHLORIDE 0.9% IV 1,000 ML 999 ML IV CONT (09:16)
--- NOTE | 2020-10-17 09:46 | PC.NURSE ---
Pt to CT.
[2020-10-17 09:58] LABS: Add Urine Microscopic? YES; Appearance Urine Cloudy (Clear); Bacteria Urine Trace /hpf; Bilirubin Urine Negative (Negative); Blood Urine Negative (Negative); Color Urine Yellow (Yellow); Glucose Urine UA Negative (Negative); Ketones Urine 1+ mg/dL (Negative); Leukocyte Esterase Ur Negative LEU/UL (Negative); Mucus Urine Rare /lpf; Nitrate Urine Negative (Negative); Protein Urine 1+ mg/dL (Negative); RBC Urine 0-2 /hpf (0-2); Specific Grav Ur 1.011 (1.001-1.035); Squamous Epithelial Cell Urine Few /hpf (Few); Urobilinogen Urine Negative mg/dL (<2.0); WBC Urine 0-3 /hpf
[2020-10-17 11:23] VITALS: BP 137/100; PULSE 80; RESP 16; O2SAT 100
[2020-10-17] MEDS: KETOROLAC 30 MG/ML VIAL (*BKC) IV PUSH (12:08)
[2020-10-17 13:23] VITALS: BP 140/99; PULSE 85; RESP 16; O2SAT 100
== END 2020-10-17 13:33 | disposition home or self-care (01) ==
PROVIDERS: Emergency Provider Emergency Medicine
DX: K43.9 Ventral hernia without obstruction or gangrene (principal); K21.9 Gastro-esophageal reflux disease without esophagitis; I10 Essential (primary) hypertension; E66.3 Overweight; Z68.26 Body mass index [BMI] 26.0-26.9, adult; F17.210 Nicotine dependence, cigarettes, uncomplicated; R93.5 Abnormal findings on diagnostic imaging of other abdominal regions, including retroperitoneum; E27.9 Disorder of adrenal gland, unspecified; K76.0 Fatty (change of) liver, not elsewhere classified
CPT/HCPCS: 36415; 74177; 80053; 81001; 81025; 83690; 85025; 96361; 96374; 96375; 99284; J1885; J2405; J3010; J7030; Q9967

== ENCOUNTER → 2020-11-01 01:46 | Outpatient (CLI) | payer BC, SELFPAY ==
[2020-11-01 19:39] LABS: SARS-CoV-2 RNA PCR Negative
== END ==
PROVIDERS: PCP Nurse Practitioner Family; Visit Provider Internal Medicine Gastroenterology
DX: Z01.812 Encounter for preprocedural laboratory examination (principal); Z20.822 Contact with and (suspected) exposure to COVID-19
CPT/HCPCS: C9803; U0003; U0005

== ENCOUNTER 2020-11-04 01:32 | Day surgery (SDC) | payer BC, SELFPAY ==
[2020-10-31 09:01] VITALS: BMI 27.2
[2020-11-04 11:14] VITALS: BP 131/92; PULSE 94; RESP 16; TEMP 36; O2SAT 94
[2020-11-04] MEDS: LACTATED RINGERS 1,000 ML 150 ML IV CONT (11:22)
--- NOTE | 2020-11-04 11:32 | WPDANESEPPF ---
Anes - Initial Pre Proc Eval Procedure: Operation Date: 11/04/20 12:15 Proposed Procedures p Colonoscopy - Júnior Tarango MD Date/Time: 11/04/20 11:32 Surgeon: Júnior Tarango MD Pre Op Diagnosis: colitis, abn ct sccan Patient Data Age: 30 Gender: F Height: 5 ft 7 in Weight: 78.8 kg Last Vital Signs Temp 96.8 F L 11/04/20 11:14 Pulse 94 11/04/20 11:14 Resp 16 11/04/20 11:14 BP 131/92 H 11/04/20 11:14 Pulse Ox 94 11/04/20 11:14 Allergies Allergy/AdvReac Type Severity Reaction Status Date / Time hydrocodone [From Vicodin] AdvReac Nausea and Verified 11/04/20 11:07 Vomiting morphine AdvReac Nausea and Verified 11/04/20 11:07 Vomiting Home Medications Medication Instructions Recorded Confirmed Type acetaminophen-codeine 1 tablet PO Q6H PRN 10/31/20 11/04/20 History ibuprofen 600 mg PO Q8H PRN 10/31/20 11/04/20 History lisinopril 20 mg PO DAILY 10/31/20 11/04/20 History Patient hx anesthesia problems: none Family hx anesthesia problems: none PMFSH Past Medical History Medical History (Updated 10/28/20 @ 14:17 by Serenity Huntley) Abdominal pain Abnormal CT scan, sigmoid colon Alcoholism Anxiety Depression Gastroesophageal reflux disease HTN (hypertension) Mitral valve prolapse Overweight (BMI 25.0-29.9) Tobacco abuse Surgical History Surgical History History of oophorectomy History of partial hysterectomy Family History Family History Sibling Chest pain Grandparent Cancer Mother Hyperthyroidism Hypertension Social History Social History Social History: the patient stated that she has been binge drinking for at least 2 weeks with vodka. She had gone through alcohol rehab the summer and does not want her family to know that she had a lapse. She cannot quantify how much she has been drinking the last 2 weeks. She said she had a miscarriage it had been very sad about and had been drinking heavily since then. She is and now has a fiancee. She has 1 child. She is a full code. She works at [employer] at this time. She smokes about a pack cigarettes a day for many years. Occasionally smokes marijuana. No other illicit drugs. She just moved in with her mother. Smoking packs per day: 1 Smoking cigarettes per day: 20.0 Years smoked: 13 Smoking pack-years: 13.00 Smoking status: Current every day smoker Tobacco type: cigarettes Alcohol intake: current Alcohol use details: HALF A FIFTH A DAY Substance use: never Substance use type: does not use Other substance usage details: patient states she drinks excessively Living arrangements: with family Gender identity (if verbalized by the patient): Female Spiritual care concerns: No Anes - Eval Final PreProcedure Day of Procedure 11/04/20 11:32 Patient weight: overweight Heart: regular rate and rhythm Lungs: clear to auscultation Airway: Mallampati scale class II Neurological: alert and oriented Last oral intake: >/= 8 hours ASA classification: III Emergent: no Anesthetic plan: proceed Anesthesia type and monitoring: general GIVS and standard monitoring Informed Consent: The patient's anesthetic plan and its attendant risks and benefits were discussed with the patient/family/POA. Questions were solicited and answers provided to the satisfaction of the patient/family/POA.
--- NOTE | 2020-11-04 12:01 | PM.HPGS ---
History of Present Illness History of Present Illness Consent: Risks, benefits, and alternatives have been discussed and questions answered. Patient agrees to proceed with procedure. Chief complaint: colitis, abn ct sccan Narrative: Audrey Valentin is a 30 [address] female with CT scan that showed possible colitis but denies abdominal pain. She also will have abdominal hernia repair soon Review of Systems Constitutional: Constitutional: Denies headache(s) and Denies weakness Eyes: Eyes: Denies blurry vision ENT: Reports Normal hearing present, Denies headache(s) and Denies neck pain Cardiovascular: Cardiovascular: Denies chest pain and Denies dyspnea Respiratory: Respiratory: Denies dyspnea Gastrointestinal: Gastrointestinal: Reports no additional gastrointestinal complaints Genitourinary: Genitourinary: Denies dysuria Musculoskeletal: Musculoskeletal: Denies neck pain Integumentary/Breasts: Skin/Breast: Denies dry skin Neurologic: Reports Normal hearing present, Denies headache(s) and Denies weakness Psychiatric: Psychiatric: Denies anxiety Endocrine: Endocrine: Denies change in body appearance Hematologic/Lymphatic: Hematologic/Lymphatic: Denies easy bleeding Allergic/Immunologic: Allergic/Immunologic: Denies urticaria PMFSH Past Medical History Medical History (Updated 10/28/20 @ 14:17 by Serenity Huntlye) Abdominal pain Abnormal CT scan, sigmoid colon Alcoholism Anxiety Depression Gastroesophageal reflux disease HTN (hypertension) Mitral valve prolapse Overweight (BMI 25.0-29.9) Tobacco abuse Surgical History Surgical History History of oophorectomy History of partial hysterectomy Family History Family History Sibling Chest pain Grandparent Cancer Mother Hyperthyroidism Hypertension Social History Social History Social History: the patient stated that she has been binge drinking for at least 2 weeks with vodka. She had gone through alcohol rehab the summer and does not want her family to know that she had a lapse. She cannot quantify how much she has been drinking the last 2 weeks. She said she had a miscarriage it had been very sad about and had been drinking heavily since then. She is and now has a fiancee. She has 1 child. She is a full code. She works at [employer] at this time. She smokes about a pack cigarettes a day for many years. Occasionally smokes marijuana. No other illicit drugs. She just moved in with her mother. Smoking packs per day: 1 Smoking cigarettes per day: 20.0 Years smoked: 13 Smoking pack-years: 13.00 Smoking status: Current every day smoker Tobacco type: cigarettes Alcohol intake: current Alcohol use details: HALF A FIFTH A DAY Substance use: never Substance use type: does not use Other substance usage details: patient states she drinks excessively Living arrangements: with family Gender identity (if verbalized by the patient): Female Spiritual care concerns: No Meds Home Medications and Allergies Home Medications Medication Instructions Recorded Confirmed Type acetaminophen-codeine 1 tablet PO Q6H PRN 10/31/20 11/04/20 History ibuprofen 600 mg PO Q8H PRN 10/31/20 11/04/20 History lisinopril 20 mg PO DAILY 10/31/20 11/04/20 History Allergies Allergy/AdvReac Type Severity Reaction Status Date / Time hydrocodone [From Vicodin] AdvReac Nausea and Verified 11/04/20 11:07 Vomiting morphine AdvReac Nausea and Verified 11/04/20 11:07 Vomiting Vital Signs Vital Signs - 24 hr 11/04/20 11:14 Temperature 96.8 F L Pulse Rate 94 Respiratory Rate 16 Blood Pressure 131/92 H Pulse Oximetry 94 Exam Const: General: comfortable and no acute distress HENMT: General nose exam: Normal nares present Eyes: General:
[2020-11-04 12:18] VITALS: BP 120/98; PULSE 88; RESP 19; O2SAT 99
[2020-11-04 12:28] VITALS: BP 132/95; PULSE 80; RESP 16; O2SAT 100
[2020-11-04 12:38] VITALS: BP 148/109; PULSE 78; RESP 16; O2SAT 100
== END 2020-11-04 13:06 | disposition home or self-care (01) ==
PROVIDERS: PCP Nurse Practitioner Family; Visit Provider Internal Medicine Gastroenterology
PROC: 0DJD8ZZ Inspection of Lower Intestinal Tract, Via Natural or Artificial Opening Endoscopic (ICD-10-PCS; CPT 45378; principal; 2020-11-04 12:15)
DX: R93.3 Abnormal findings on diagnostic imaging of other parts of digestive tract (principal); K57.30 Diverticulosis of large intestine without perforation or abscess without bleeding; K64.8 Other hemorrhoids; I10 Essential (primary) hypertension; I34.1 Nonrheumatic mitral (valve) prolapse; F41.8 Other specified anxiety disorders; K21.9 Gastro-esophageal reflux disease without esophagitis; F10.20 Alcohol dependence, uncomplicated; F17.210 Nicotine dependence, cigarettes, uncomplicated
CPT/HCPCS: 45378; J2704; J7120

== ENCOUNTER → 2020-11-19 01:57 | Outpatient (CLI) | payer BC, SELFPAY ==
[2020-11-19 19:23] LABS: SARS-CoV-2 RNA PCR Negative
== END ==
PROVIDERS: PCP Nurse Practitioner Family; Visit Provider Surgery
DX: Z01.812 Encounter for preprocedural laboratory examination (principal); Z20.822 Contact with and (suspected) exposure to COVID-19
CPT/HCPCS: C9803; U0003; U0005

== ENCOUNTER 2020-11-19 09:49 | Outpatient (CLI) | payer BC, SELFPAY ==
--- NOTE | 2020-11-19 11:00 | ECG_ITS ---
Measurements Intervals [place] Rate: 83 P: 69 [place]: 137 QRS: 87 QRSD: 91 T: 60 QT: 362 QTc: 426 Interpretive Statements SINUS RHYTHM BORDERLINE R WAVE PROGRESSION, ANTERIOR LEADS BASELINE ARTIFACT- I, II, III, AVR, AVL, AVF, V3 BORDERLINE ECG Electronically Signed On 11-19-2020 11:05:13 CDT by Frankie Trinh D.O.
== END 2020-11-19 09:50 | disposition home or self-care (01) ==
LOC: ANHSURGERY 09:53
PROVIDERS: PCP Nurse Practitioner Family; Visit Provider Surgery
DX: Z01.818 Encounter for other preprocedural examination (principal); K43.9 Ventral hernia without obstruction or gangrene; I10 Essential (primary) hypertension
CPT/HCPCS: 36415; 86850; 86900; 86901; 93005

== ENCOUNTER 2020-11-21 01:44 | Day surgery (SDC) | payer BC, SELFPAY ==
[2020-11-12 15:47] VITALS: BMI 27.6
[2020-11-21] VITALS (13 sets, daily range): BP systolic 113–148; BP diastolic 82–104; PULSE 60–87; RESP 11–25; TEMP 36.1–36.9; O2SAT 91–100; BMI 27.5
[2020-11-21] MEDS: ACETAMINOPHEN 500 MG TABLET 1000 MG PO (11:23)
[2020-11-21] MEDS: KETOROLAC 15 MG/ML VIAL (*BKC) IV PUSH (11:23)
[2020-11-21] MEDS: LACTATED RINGERS 1,000 ML 30 ML IV CONT ×2 (11:24→18:12)
--- NOTE | 2020-11-21 11:45 | WPDANESEPPF ---
Anes - Initial Pre Proc Eval Procedure: Operation Date: 11/21/20 12:00 Proposed Procedures p Robotic Assisted Laparoscopic Ventral Hernia Repair with Mesh - Nancy Fowler MD Date/Time: 11/21/20 11:45 Surgeon: Nancy Fowler MD Pre Op Diagnosis: multiple ventral hernias Patient Data Age: 30 Gender: F Height: 1.7 m Weight: 79.8 kg Last Vital Signs Temp 36.9 C 11/21/20 11:04 Pulse 87 11/21/20 11:04 Resp 14 11/21/20 11:04 BP 148/104 H 11/21/20 11:04 Pulse Ox 100 11/21/20 11:04 Allergies Allergy/AdvReac Type Severity Reaction Status Date / Time hydrocodone [From Vicodin] AdvReac Nausea and Verified 11/12/20 15:46 Vomiting morphine AdvReac Nausea and Verified 11/12/20 15:46 Vomiting Home Medications Medication Instructions Recorded Confirmed Type lisinopril 20 mg PO DAILY 10/31/20 11/12/20 History Patient hx anesthesia problems: none Family hx anesthesia problems: none [facility] Past Medical History Medical History Abdominal pain Abnormal CT scan, sigmoid colon Alcoholism Anxiety Depression Gastroesophageal reflux disease HTN (hypertension) Mitral valve prolapse Overweight (BMI 25.0-29.9) Tobacco abuse Surgical History Surgical History History of oophorectomy History of partial hysterectomy Family History Family History Sibling Chest pain Grandparent Cancer Mother Hyperthyroidism Hypertension Social History Social History Social History: the patient stated that she has been binge drinking for at least 2 weeks with vodka. She had gone through alcohol rehab the summer and does not want her family to know that she had a lapse. She cannot quantify how much she has been drinking the last 2 weeks. She said she had a miscarriage it had been very sad about and had been drinking heavily since then. She is and now has a fiancee. She has 1 child. She is a full code. She works at [employer] at this time. She smokes about a pack cigarettes a day for many years. Occasionally smokes marijuana. No other illicit drugs. She just moved in with her mother. Smoking packs per day: 1 Smoking cigarettes per day: 20.0 Years smoked: 12 Smoking pack-years: 12.00 Smoking status: Current every day smoker Tobacco type: cigarettes Alcohol intake: current Drinks per week: 7 Substance use: current Substance use type: marijuana Other substance usage details: SMOKE Last use: 11/06/20 Living arrangements: with family Gender identity (if verbalized by the patient): Female Spiritual care concerns: No Anes - Eval Final PreProcedure Day of Procedure 11/21/20 11:45 Patient weight: overweight Heart: regular rate and rhythm Lungs: clear to auscultation and normal air movement Airway: Mallampati scale class II Neurological: alert and oriented Last oral intake: >/= 8 hours ASA classification: III Emergent: no Anesthetic plan: proceed Anesthesia type and monitoring: general ETT Informed Consent: The patient's anesthetic plan and its attendant risks and benefits were discussed with the patient/family/POA. Questions were solicited and answers provided to the satisfaction of the patient/family/POA.
--- NOTE | 2020-11-21 12:16 | WPDHPUPDATE1 ---
History and Physical Update Update Date/Time: 11/21/20 12:16 History and Physical has been reviewed, including an updated exam of the patient. There are NO changes in the patient's condition. Risks, benefits, and alternatives have been discussed and questions answered. Patient agrees to proceed with procedure.
[2020-11-21] MEDS: ceFAZolin 2 GM/D5W 50 ML 2 GM/50 ML BAG IVPB (12:35)
--- NOTE | 2020-11-21 12:41 | WPDANESPNB ---
Anes - Peripheral Nerve Block Date/Time: 11/21/20 12:41 I have discussed with the patient/family/POA the placement of a peripheral nerve block for post-operative pain management, including associated risks, benefits, complications, and side effects. Alternative methods of post-operative analgesia were detailed. Questions were solicited and answers provided to the satisfaction of the patient/family/POA. Time-Out: A pre-procedural Time-Out was completed immediately before starting the procedure and confirmed: Patient Identification, Site, Procedure, Patient Position and the Availability of Requisite Equipment. Clinical Indications: Acute post-operative pain management requested by the operative surgeon. Nerve Block Insertion Note Anes-nerve block: other (bilateral T8 YESSY block) Patient position: other (sitting) Skin prep: chlorhexidine Needle: 22 gauge, stimulating, insulated echogenic needle. Needle length: 80 mm Technique: ultrasound Technique comment: in plane Injectate: bupivacaine 0.25% with epi 5 mcg/ml (40cc) Observations: tolerated well Complications: none Procedure start time:: 1225 Procedure end time:: 1230
[2020-11-21] MEDS: BUPIVACAINE/EPINEPHRINE 0.5% 30 ML VIAL INFILTRATE (13:12)
--- NOTE | 2020-11-21 15:02 | P.OP_ITS ---
Procedure Note - Detailed Date of procedure: 11/21/20 Pre-op diagnosis: multiple ventral hernias incarcerated supraumbilical incisional hernias x 5 Post-op diagnosis: other Procedure performed: robotic assisted repair of incarcerated supraumbilical incisional hernias x 5 with 20 x 15 cm symbotex mesh in underlay position Description of procedure: The patient was taken the operating room placed in the supine position. After adequate induction of general anesthesia, the patient was prepped and draped in normal sterile fashion. A time-out was then done to verify the patient's identity as well as the procedure being performed. I began by making a 12 mm incision in the left upper quadrant. Through this, a Veress needle was placed into the peritoneal cavity and CO2 gas was insufflated. After adequate pneumoperitoneum was achieved, a 12 mm trocar was placed through this incision. I then placed the laparoscope through this trocar site and under direct visualization I placed a 8 mm port in the left mid abdomen as well as an additional 8 mm port in the left lower abdomen. The robot was then docked to the 3 port sites. I then went to the robotic console. I began by identifying the multiple hernias in the midline. Two larger-sized incarcerated hernias were noted in the supraumbilical region. Using graspers and scissors c cautery, I was able to reduce these hernias. The hernias were noted to just contain preperitoneal fat and omentum. Once reduced, I also reduced and dissected out the hernia sacs. Superior to this, there were 3 smaller hernia defects along her old incision. I was able to dissect these hernias as well. I then closed the approximately all of the defects with 0 strata fix suture. Once I closed all the defects, I also imbricated the fascia along the course of the old i ncision. I then placed a 20 x 15 cm symbotex mesh into the abdominal cavity. The Vicryl stitch was placed in the middle of the mesh and brought up centering the mesh over the larger defects. Once this was done, I used 2 0 V lock suture x 3 to circumferentially suture the mesh to the abdominal. Once the mesh was completely sutured in, I was happy with our tension-free repair. The mesh was noted to have good overlap of all defects. At this point, the robot was undocked and all ports were removed. I then closed the 12 mm port site with an 0 Vicryl [id number] suture at the fascial level. All port sites were then closed with 4 O Monocryl subcuticular suture. The patient tolerated the procedure well, is extubated in the operating room postoperative, OB transferred to the recovery room in stable condition. Anesthesia: GETA Surgeon: Nancy Fowler MD Estimated blood loss (mL): 10 Drains: No Packing: No Pathology: none sent Complications: No immediate complications Condition: stable Disposition: PACU Findings: incarcerated incisional hernias x 5
[2020-11-21] MEDS: fentaNYL CITRATE INJ (*CRX) 100 MCG/2 ML VIAL 25 MCG IV PUSH ×8 (15:24→17:07)
[2020-11-21] MEDS: HYDROmorphone HCL INJ (*CRX) 1 MG/ML SYR 0.25 MG IV PUSH ×8 (15:47→17:42)
[2020-11-21] MEDS: oxyCODONE HCL (*CRX) 5 MG TAB IR PO (17:15)
--- NOTE | 2020-11-21 17:55 | SUR.PHASEII ---
0505- Call to Bryan Betts CRNA for patient's pain. Patient complaining of significant upper abdominal pain that is sharp in nature and patient requesting additional pain medication at this time. Rating pain at 8/10 on numeric scale. Patient has had 200MCG of fentanyl IVP and 2MG of dilaudid IVP. Last doses of Tylenol and Toradol were at 1123. Orders obtained for 1,000MG IV tylenol once and 30MG toradol IVP once.
[2020-11-21] MEDS: KETOROLAC 30 MG/ML VIAL (*BKC) IV PUSH (18:08)
--- NOTE | 2020-11-21 18:25 | SUR.PHASEII ---
1825- Reviewed patient's discharge instructions and she stated her pain remains a 6/10 but she is requesting to be discharged home at this time.
--- NOTE | 2020-11-21 18:37 | SUR.PHASEII ---
1837- Patient up to wheelchair preparing for discharge with assistance of this RN and her mother. Patient states her pain is tolerable until she moves around. This RN explained to patient she would call surgeon Dr. Fowler in concerns to her pain. Patient explained to this RN she did not want the surgeon called and would like to be discharged home at this time. She stated I do not want to be admitted to hospital overnight and do not want Dr. Fowler contacted prior to discharge. 1838- Patient discharged via wheelchair and voiced understanding to call surgeon Dr. Fowler if pain is not tolerable at home with pain medication prescribed.
== END 2020-11-21 18:38 | disposition home or self-care (01) ==
PROVIDERS: PCP Nurse Practitioner Family; Visit Provider Surgery
PROC: (CPT 49655; principal; 2020-11-21 12:00)
DX: K43.0 Incisional hernia with obstruction, without gangrene (principal); F41.8 Other specified anxiety disorders; I10 Essential (primary) hypertension; K21.9 Gastro-esophageal reflux disease without esophagitis; I34.1 Nonrheumatic mitral (valve) prolapse; F17.210 Nicotine dependence, cigarettes, uncomplicated; F12.90 Cannabis use, unspecified, uncomplicated; K57.90 Diverticulosis of intestine, part unspecified, without perforation or abscess without bleeding; K64.8 Other hemorrhoids
CPT/HCPCS: 49655; S2900; A9270; C1781; J0131; J0690; J1100; J1170; J1885; J2250; J2370; J2405; J2704; J2710; J3010; J7030; J7120

== ENCOUNTER 2020-11-22 09:58 | Observation (INO) | payer BC, SELFPAY ==
[2020-11-22] VITALS (15 sets, daily range): BP systolic 138–175; BP diastolic 96–117; PULSE 62–95; RESP 17–35; TEMP 36.1–36.7; O2SAT 93–100; BMI 29.7
--- NOTE | ~2020-11-22 | XR_ITS ---
EXAMINATION: XR chest 1V portable EXAM DATE: 11/22/2020 12:02 INDICATION: hypoxemia, Rt sided chest pain; hernia surg last a.m. TECHNIQUE: Portable AP frontal chest x-ray was obtained. There is no prior study for comparison. FINDINGS: Scattered regions of bibasilar airspace disease appearance most consistent with multifocal subsegmental atelectasis. Can't exclude developing pneumonia, clinical correlation. No pneumothorax o r pleural effusion. Cardiomediastinal silhouette is normal. There are no osseous abnormalities identi fied. IMPRESSION: Scattered bibasilar opacities more likely atelectasis than pneumonia. Reviewed, dictated and finalized at location B. IMPRESSION: Scattered bibasilar opacities more likely atelectasis than pneumon ia.
[2020-11-22] MEDS: ONDANSETRON INJ 4 MG/2 ML VIAL IV PUSH ×2 (10:16→16:26)
[2020-11-22] MEDS: SODIUM CHLORIDE 0.9% IV 1,000 ML 999 ML IV CONT (10:16)
[2020-11-22] MEDS: fentaNYL CITRATE INJ (*CRX) 100 MCG/2 ML VIAL IV PUSH (10:17)
[2020-11-22] MEDS: PANTOPRAZOLE SODIUM IV 40 MG VIAL IV PUSH ×2 (10:17→21:03)
[2020-11-22] MEDS: ALBUTEROL SULFATE NEB 2.5 MG/0.5 ML INH 5 MG INHALATION ×2 (10:48→20:32)
[2020-11-22] MEDS: IPRATROPIUM BR 0.02% INH SOLN 0.5 MG/2.5 ML VIAL INHALATION ×2 (10:48→20:32)
[2020-11-22 10:58] LABS: Alveolar/Arterial O2 Gradient 53.6 mmHg; Base Excess ABG 0.1 mEq/l (+/-2.0); Carboxyhemoglobin 2.8 % THb (0-2.0); Fractional Inspired Oxygen 21 %; HCO3 ABG 23.8 mEq/l (22.0-26.0); Methemoglobin ABG 0.2 %THb (0-1.5); Oxygen Content ABG 18.4 %vol (16.0-22.0); Oxygen Saturation ABG 89.1 % (95.0-100.0); Oxyhemoglobin 86.5 % THb (90.0-100.0); PCO2 ABG 35.8 mmHg (35.0-45.0); PO2 ABG 53.3 mmHg (80.0-100.0); PO2 FiO2 Ratio Arterial Blood 2.54 %; Reduced Hemoglobin 10.5 %THb (0-5.0); Total Hemoglobin 15.2 g/dL (12.0-18.0)
[2020-11-22 11:00] LABS: Device ROOM AIR; Modified Allen's Test Pass; Site Drawn RIGHT RADIAL
[2020-11-22 11:19] LABS: Basophils Percent Auto 0.4 % (0.2-1.2); Eosinophils Absolute Auto 0.1 K/mm3 (0-0.3); Eosinophils Percent Auto 0.5 % (0-4.4); Hematocrit 45.7 % (37.0-47.0); Hemoglobin 15.2 g/dL (12.0-15.0); Immature Granulocyte Absolute 0.04 K/mm3 (0.00-0.031); Immature Granulocyte Percent A 0.4 % (0-0.5); Lymphocytes Absolute Auto 1.75 K/mm3 (0.9-3.2); Lymphocytes Percent Auto 17.2 % (18.3-44.2); Mean Corpuscular HGB Conc 33.3 g/dl (32-36); Mean Corpuscular Hemoglobin 36.5 pg (26-34); Mean Corpuscular Volume 109.9 fl (80-100); Mean Platelet Volume 10.9 fl (7.4-10.4); Monocytes Absolute Auto 0.6 K/mm3 (0.1-0.6); Monocytes Percent Auto 5.8 % (2.6-8.5); Neutrophils Absolute Auto 7.7 K/mm3 (1.3-6.7); Neutrophils Percent Auto 75.7 % (45.5-73.1); Platelet Count Result 228 k/mm3 (150-375); Red Blood Count 4.16 M/mm3 (4.2-5.4); Red Cell Distribution Width 13.8 % (11.5-14.5); White Blood Count 10.2 K/mm3 (4.5-10.0)
[2020-11-22 11:21] LABS: Add Urine Microscopic? YES; Appearance Urine Clear (Clear); Bilirubin Urine Negative (Negative); Blood Urine 3+ (Negative); Color Urine Yellow (Yellow); Glucose Urine UA Negative (Negative); Ketones Urine Negative (Negative); Leukocyte Esterase Ur Negative LEU/UL (Negative); Mucus Urine Rare /lpf; Nitrate Urine Negative (Negative); Protein Urine Negative (Negative); RBC Urine 0-2 /hpf (0-2); Specific Grav Ur 1.018 (1.001-1.035); Squamous Epithelial Cell Urine Moderate /hpf (Few); Urobilinogen Urine Negative mg/dL (<2.0); WBC Urine 0-3 /hpf
[2020-11-22 11:28] LABS: INR 0.9; Partial Thromboplastin Time 24.7 SECONDS (22.3-36.8); Prothrombin Time 12.7 Seconds (11.1-14.7)
[2020-11-22 11:29] LABS: Lipase 80 U/L (23-300)
[2020-11-22 11:31] LABS: Alanine Aminotransferase 25 U/L (4-35); Albumin Level 3.1 g/dL (3.5-5.1); Alkaline Phosphatase 87 U/L (38-126); Anion Gap 2 mmol/L (8-16); Aspartate Amino Transferase 56 U/L (14-36); Bilirubin,Total 0.7 mg/dL (0.2-1.3); Blood Urea Nitrogen 7 mg/dL (7-17); Calcium 8.3 mg/dL (8.4-10.2); Carbon Dioxide 24 mmol/L (22-30); Chloride 107 mmol/L (98-107); Estimated CRCL calculation 114 ml/min; Estimated Glomerular Filt Rate > 60; Glucose 82 mg/dL (65-105); Potassium 3.9 mmol/L (3.4-5.0); Sodium 133 mmol/L (137-145)
[2020-11-22 11:40] LABS: CRP < 0.5 mg/dL (<1.0)
--- NOTE | 2020-11-22 11:55 | ED.GENADULT ---
HPI - General Adult General Chief complaint: Abdominal Pain Stated complaint: post op complications Time Seen by Provider: 11/22/20 10:01 Source: patient, family, EMS, RN notes reviewed and old records reviewed Mode of arrival: EMS Limitations: no limitations History of Present Illness HPI narrative: Patient is a 30-year-old female who returns to emergency department per EMS for evaluation of abdominal pain patient yesterday had multiple ventral hernia repairs performed by Dr. Fowler have been advised to stay in hospital however went home patient was able to get through the night but this morning due to increasing pain had to return patient has not been out of bed since going home patient notes moderate aching pain of the abdomen did not take her pain medication throughout the night patient's pain is located to the abdomen patient presents in her binder patient notes that she did take her blood pressure medication this morning patient with history of tobacco abuse frequent alcohol use denies any vomiting or fever patient on arrival appears uncomfortable but not in distress Related Data Home Medications Medication Instructions Recorded Confirmed lisinopril 20 mg PO DAILY 10/31/20 11/12/20 Allergies Allergy/AdvReac Type Severity Reaction Status Date / Time hydrocodone [From Vicodin] AdvReac Nausea and Verified 11/22/20 10:04 Vomiting morphine AdvReac Nausea and Verified 11/22/20 10:04 Vomiting Review of Systems Review of Systems: All systems reviewed & are unremarkable except as noted in HPI and below PMFSH Past Medical History Medical History Abdominal pain Abnormal CT scan, sigmoid colon Alcoholism Anxiety Depression Gastroesophageal reflux disease HTN (hypertension) Mitral valve prolapse Overweight (BMI 25.0-29.9) Tobacco abuse Surgical History Surgical History History of oophorectomy History of partial hysterectomy Family History Family History Sibling Chest pain Grandparent Cancer Mother Hyperthyroidism Hypertension Social History Social History Social History: the patient stated that she has been binge drinking for at least 2 weeks with vodka. She had gone through alcohol rehab the summer and does not want her family to know that she had a lapse. She cannot quantify how much she has been drinking the last 2 weeks. She said she had a miscarriage it had been very sad about and had been drinking heavily since then. She is and now has a fiancee. She has 1 child. She is a full code. She works at [employer] at this time. She smokes about a pack cigarettes a day for many years. Occasionally smokes marijuana. No other illicit drugs. She just moved in with her mother. Smoking packs per day: 1 Smoking cigarettes per day: 20.0 Years smoked: 12 Smoking pack-years: 12.00 Smoking status: Current every day smoker Tobacco type: cigarettes Alcohol intake: current Drinks per week: 7 Substance use: current Substance use type: marijuana Other substance usage details: SMOKE Last use: 11/06/20 Gender identity (if verbalized by the patient): Female Spiritual care concerns: No Exam Narrative: Exam Narrative: GENERAL: Well-appearing, obese, uncomfortable and in no acute distress. HEAD: Normocephalic, atraumatic. EYES: PERRLA and EOMI. ENT: Nares clear, no rhinorrhea or epistaxis. Mucous membranes moist. Oropharynx without tonsillar hypertrophy exudate or other lesions. NECK: Supple. No adenopathy or masses. CHEST: Diminished on auscultation. No respiratory distress. No wheezes rales or rhonchi HEART: Regular rate and rhythm. No murmur heard. Normal peripheral pulses. ABDOMEN: Soft, generalized tenderness, nondistended, normal active b
[2020-11-22 12:14] LABS: Lactic Acid Reflex 1.1 mmol/L (0.7-2.1)
[2020-11-22] MEDS: fentaNYL CITRATE INJ (*CRX) 100 MCG/2 ML VIAL 50 MCG IV PUSH ×2 (13:52→20:05)
--- NOTE | 2020-11-22 14:17 | ADMGEN ---
This patient, Audrey Valentin, was admitted to Medical Room 249-01. Patient/family oriented to hospital policies and general routines including ID bracelet, bed and alarms, visiting hours, pain management, procedures, bathroom and other care routines, personal items, smoking policy, room service/diet, and visiting hours. Information on how to activate the Rapid Response Team has been discussed. Patient/Family are encouraged to report perceived risks to care and to ask questions if they do not understand what they are told or what they should do.
--- NOTE | 2020-11-22 15:37 | PM.IMHP ---
H&P: HPI History of Present Illness Date/Time: 11/22/20 15:37 Pt is a 30 y/o F s/p robotic assisted incarcerated incisional hernia repair on 11/23. Pt reports she woke up this am in severe pain and came to ED. Pt reports she was also SOB secondary to pain. Upon eval in ED, pt was found to be slightly hypoxic. Pt now admitted for further observation and pain control. Chief Complaint: abdominal pain, hypoxia Review of Systems Constitutional: Constitutional: Denies chills, Reports fatigue, Denies fever(s), Denies malaise, Reports poor appetite and Reports weakness Eyes: Eyes: Reports no additional eye complaints ENT: Reports system reviewed and no additional complaints, except as documented Cardiovascular: Cardiovascular: Reports no additional cardiovascular complaints Respiratory: Respiratory: Denies cough, Reports pain on inspiration, Reports dyspnea and Reports dyspnea on exertion Gastrointestinal: Gastrointestinal: Reports abdominal pain, Reports GI cramping and Denies nausea Genitourinary: Genitourinary: Reports no additional female genitourinary complaints Musculoskeletal: Musculoskeletal: Reports no additional musculoskeletal complaints Integumentary/Breasts: Skin/Breast: Reports system reviewed and no additional complaints, except as docu Neurologic: Reports system reviewed and no additional complaints, except as documented Psychiatric: Psychiatric: Reports no additional psychiatric complaints Endocrine: Endocrine: Reports no additional endocrine complaints Hematologic/Lymphatic: Hematologic/Lymphatic: Reports no additional hematologic/lymphatic complaints Allergic/Immunologic: Allergic/Immunologic: Reports no additional allergic/immunologic complaints PMF Past Medical History Medical History Abdominal pain Abnormal CT scan, sigmoid colon Alcoholism Anxiety Depression Gastroesophageal reflux disease HTN (hypertension) Mitral valve prolapse Overweight (BMI 25.0-29.9) Tobacco abuse Surgical History Surgical History History of oophorectomy History of partial hysterectomy Family History Family History Sibling Chest pain Grandparent Cancer Mother Hyperthyroidism Hypertension Social History Social History Social History: the patient stated that she has been binge drinking for at least 2 weeks with vodka. She had gone through alcohol rehab the summer and does not want her family to know that she had a lapse. She cannot quantify how much she has been drinking the last 2 weeks. She said she had a miscarriage it had been very sad about and had been drinking heavily since then. She is and now has a fiancee. She has 1 child. She is a full code. She works at [employer] at this time. She smokes about a pack cigarettes a day for many years. Occasionally smokes marijuana. No other illicit drugs. She just moved in with her mother. Smoking packs per day: 1 Smoking cigarettes per day: 20.0 Years smoked: 12 Smoking pack-years: 12.00 Smoking status: Current every day smoker Alcohol intake: current Drinks per week: 7 Substance use: current Substance use type: marijuana Other substance usage details: Fifth of vodka a day Last use: 11/06/20 Gender identity (if verbalized by the patient): Female Spiritual care concerns: No Meds Home Medications and Allergies Home Medications Medication Instructions Recorded Confirmed Type lisinopril 20 mg PO DAILY 10/31/20 11/22/20 History docusate sodium [Colace] 100 mg PO BID #30 cap 11/21/20 11/22/20 Rx tramadol 50 mg PO Q6H PRN #30 tablet 11/21/20 11/22/20 Rx Allergies Allergy/AdvReac Type Severity Reaction Status Date / Time hydrocodone [From Vicodin] AdvReac Nausea and Verified 11/22/20 14:18 Vomiting
[2020-11-22] MEDS: LACTATED RINGERS 1,000 ML 75 ML IV CONT (15:55)
[2020-11-22] MEDS: KETOROLAC 30 MG/ML VIAL (*BKC) IV PUSH ×2 (15:59→22:15)
[2020-11-22] MEDS: oxyCODONE/ACETAMINOPHEN (*CRX) 5-325 MG TABLET 1 TABLET PO ×2 (16:26→21:03)
[2020-11-22] MEDS: METOPROLOL TARTRATE INJ 5 MG/5 ML VIAL IV PUSH (19:58)
[2020-11-22] MEDS: hydrALAZINE HCL 20 MG/ML VIAL 10 MG IV PUSH (21:08)
[2020-11-23] VITALS (9 sets, daily range): BP systolic 146–153; BP diastolic 97–106; PULSE 62–80; RESP 16–18; TEMP 36.1; O2SAT 94–97
[2020-11-23] MEDS: fentaNYL CITRATE INJ (*CRX) 100 MCG/2 ML VIAL 50 MCG IV PUSH ×2 (00:19→11:18)
[2020-11-23] MEDS: ONDANSETRON INJ 4 MG/2 ML VIAL IV PUSH ×2 (00:21→09:32)
[2020-11-23] MEDS: oxyCODONE/ACETAMINOPHEN (*CRX) 5-325 MG TABLET 1 TABLET PO ×3 (01:23→13:19)
[2020-11-23] MEDS: METOPROLOL TARTRATE INJ 5 MG/5 ML VIAL IV PUSH ×2 (01:23→09:35)
[2020-11-23] MEDS: IPRATROPIUM BR 0.02% INH SOLN 0.5 MG/2.5 ML VIAL INHALATION ×2 (03:14→09:51)
[2020-11-23] MEDS: ALBUTEROL SULFATE NEB 2.5 MG/0.5 ML INH 5 MG INHALATION ×2 (03:14→09:51)
[2020-11-23] MEDS: LACTATED RINGERS 1,000 ML 75 ML IV CONT (04:05)
[2020-11-23] MEDS: KETOROLAC 30 MG/ML VIAL (*BKC) IV PUSH ×2 (04:06→09:36)
[2020-11-23 05:43] LABS: Potassium 3.4 mmol/L (3.4-5.0)
[2020-11-23 05:45] LABS: Anion Gap 3 mmol/L (8-16); Blood Urea Nitrogen 6 mg/dL (7-17); Calcium 8.5 mg/dL (8.4-10.2); Carbon Dioxide 26 mmol/L (22-30); Chloride 107 mmol/L (98-107); Estimated CRCL calculation 132 ml/min; Estimated Glomerular Filt Rate > 60; Glucose 89 mg/dL (65-105); Sodium 136 mmol/L (137-145)
[2020-11-23 05:48] LABS: Basophils Percent Auto 0.5 % (0.2-1.2); Eosinophils Absolute Auto 0.1 K/mm3 (0-0.3); Eosinophils Percent Auto 0.7 % (0-4.4); Hematocrit 41.9 % (37.0-47.0); Hemoglobin 14.1 g/dL (12.0-15.0); Immature Granulocyte Absolute 0.04 K/mm3 (0.00-0.031); Immature Granulocyte Percent A 0.5 % (0-0.5); Lymphocytes Absolute Auto 1.62 K/mm3 (0.9-3.2); Lymphocytes Percent Auto 21.9 % (18.3-44.2); Mean Corpuscular HGB Conc 33.7 g/dl (32-36); Mean Corpuscular Hemoglobin 36.8 pg (26-34); Mean Corpuscular Volume 109.4 fl (80-100); Mean Platelet Volume 11.4 fl (7.4-10.4); Monocytes Absolute Auto 0.4 K/mm3 (0.1-0.6); Neutrophils Absolute Auto 5.2 K/mm3 (1.3-6.7); Neutrophils Percent Auto 70.4 % (45.5-73.1); Platelet Count Result 198 k/mm3 (150-375); Red Blood Count 3.83 M/mm3 (4.2-5.4); Red Cell Distribution Width 13.7 % (11.5-14.5); White Blood Count 7.4 K/mm3 (4.5-10.0)
[2020-11-23] MEDS: PANTOPRAZOLE SODIUM IV 40 MG VIAL IV PUSH (09:36)
--- NOTE | 2020-11-23 09:42 | PM.DS ---
DS: Admitting Diagnosis Admitting Diagnosis Admitting Diagnosis: Postoperative pain DS: Discharge Diagnosis Discharge Diagnosis (1) Acute postoperative pain: Code(s): G89.18 - Other acute postprocedural pain Status: Acute (2) Incisional hernia without mention of obstruction or gangrene: Qualifiers: Obstruction and gangrene presence: without obstruction or gangrene Qualified Code(s): K43.2 - Incisional hernia without obstruction or gangrene Code(s): K43.2 - Incisional hernia without obstruction or gangrene Status: Acute (3) Alcoholism: Code(s): F10.20 - Alcohol dependence, uncomplicated Status: Chronic DS: Summary Hospital Course Hospital Course: Patient underwent robotic laparoscopic repair of multiple incisional hernias with Symbotex mesh on November 21, 2020. Although advised to stay in the hospital, patient elected to go home the day of surgery. She had increasing pain through the night and during the day of November 22. She then came to the emergency room. She was readmitted for postoperative pain control yesterday November 22, 2020. This morning she is very comfortable. She has been taking Percocet on a p.r.n. basis with good pain control and would like to go home today on Percocet. No nausea or vomiting, no problems with ambulation. She feels much better. Time Spent with Patient Time attestation: Total time spent providing and/or coordinating discharge services: Exam GI: Inspection: normal to inspection, non-distended and incision (All incisions healing well) GI Palp: Yes Soft to palpation and Yes Tenderness to palpation present (GI) (Mild appropriate tenderness) Auscultation: normoactive bowel sounds DS: Data Data Completed and Pending Labs on day of discharge: Labs from last 24 hours 11/23/20 11/23/20 11/22/20 05:05 05:05 11:54 WBC 7.4 RBC 3.83 L Hgb 14.1 Hct 41.9 MCV 109.4 H MCH 36.8 H MCHC 33.7 RDW 13.7 Plt Count 198 MPV 11.4 H Immature Gran % (Auto) 0.5 Neut % (Auto) 70.4 Lymph % (Auto) 21.9 Moffat % (Auto) 6.0 Eos % (Auto) 0.7 Baso % (Auto) 0.5 Lymph # (Auto) 1.62 Moffat # (Auto) 0.4 Eos # (Auto) 0.1 Baso # (Auto) 0.0 Abs Immat Gran (auto) 0.04 H Absolute Neuts (auto) 5.2 Absolute Nucleated RBC 0.0 Nucleated RBC % 0.0 PT INR APTT Puncture Site ABG pH ABG pCO2 ABG pO2 ABG PO2/FiO2 Ratio ABG HCO3 ABG O2 Saturation ABG O2 Content ABG Base Excess A-a Gradient Oxyhemoglobin Carboxyhemoglobin Methemoglobin Reduced Hemoglobin Total Hemoglobin O2 Delivery Device O2 Liters/Min FiO2 Sodium 136 L Potassium 3.4 Chloride 107 Carbon Dioxide 26 Anion Gap 3 L BUN 6 L Creatinine 0.60 L Estim Creat Clear Calc 132 Estimated GFR > 60 Glucose 89 Lactic Acid 1.1 Calcium 8.5 Total Bilirubin AST ALT Alkaline Phosphatase C-Reactive Protein Total Protein Albumin Lipase Urine Color Urine Appearance Urine pH Ur Specific [place] Urine Protein Urine Glucose (UA) Urine Ketones Ur Blood (Man) Urine Nitrate Urine Bilirubin Urine Urobilinogen Leukocyte Esterase Rfl Urine RBC Urine WBC Ur Squamous Epith Cells Urine Mucus 11/22/20 11/22/20 11/22/20 11:10 11:10 11:10 WBC 10.2 H RBC 4.16 L Hgb 15.2 H Hct 45.7 MCV 109.9 H MCH 36.5 H MCHC 33.3 RDW 13.8 Plt Count 228 MPV 10.9 H Immature Gran % (Auto) 0.4 Neut % (Auto) 75.7 H Lymph % (Auto) 17.2 L Moffat % (Auto) 5.8 Eos % (Auto) 0.5 Baso % (Auto) 0.4 Lymph # (Auto) 1.75 Moffat # (Auto) 0.6 Eos # (Auto) 0.1 Baso # (Auto) 0.0 Abs Immat Gran (auto) 0.04 H Absolute Neuts (auto) 7.7 H Absolute Nucleated RBC 0.0 Nucleated RBC % 0.0 PT INR APTT Puncture Site ABG pH ABG pCO2
--- NOTE | 2020-11-23 11:22 | PC.NURSE ---
called to pt's room, she attempted to eat some breakfast, had about 3-4 bites and is c/o nausea, I reviewed zofran orders, pt states she would like to try some pain medication and see if that works, c/o pain 01/25, meds administered will continue to monitor, informed pt that discharge is pending her being able to eat
== END 2020-11-23 14:18 | disposition home or self-care (01) ==
LOC: ANHED 12:43 → ANH2MED 14:39
PROVIDERS: Emergency Medicine Emergency Medical Services; Admitting Provider Surgery; Emergency Provider Emergency Medicine; PCP Nurse Practitioner Family; Visit Provider Surgery
DX: G89.18 Other acute postprocedural pain (principal); K43.2 Incisional hernia without obstruction or gangrene; F10.20 Alcohol dependence, uncomplicated; J98.11 Atelectasis; R09.02 Hypoxemia; I10 Essential (primary) hypertension; F17.210 Nicotine dependence, cigarettes, uncomplicated; F12.90 Cannabis use, unspecified, uncomplicated
CPT/HCPCS: 36415; 36600; 71045; 80048; 80053; 81001; 82375; 82805; 83050; 83605; 83690; 85025; 85610; 85730; 86140; 87040; 94640; 96361; 96374; 96375; 96376; 97161; 99285; A9270; C9113; G0378; J0131; J0360; J1885; J2405; J3010; J7030; J7120

== ENCOUNTER 2021-09-18 09:14 | Emergency (ER) | payer BC, SELFPAY ==
[2021-09-18 09:18] VITALS: BP 146/101; PULSE 88; RESP 16; TEMP 36.7; O2SAT 100
--- NOTE | 2021-09-18 09:20 | ED.NAVMDI ---
HPI - Nausea/Vomiting/Diarrhea General Chief complaint: Nausea/Vomiting/Diarrhea Stated complaint: Abdominal Pain/Diarrhea/Nausea Time Seen by Provider: 09/18/21 09:21 Source: patient and RN notes reviewed History of Present Illness HPI Narrative: Patient is a 31-year-old female who presents the urgent care with complaints of abdominal cramping, nausea, vomiting and diarrhea. Patient states that she ate [employer] last night and has since then had extreme diarrhea and vomiting. Patient states that she has vomited 4 times this morning and lost count of how many loose stools. Patient does have a history of colitis or diverticulitis but does state that she is not having the abdominal pain like she typically would with those conditions . Patient currently denies of any abdominal pain. States that the diarrhea has seemed to lessen. Patient has been taking Pepto-Bismol. States that her main concern is a work note for today. No other acute complaints. No acute distress noted. Patient read the plan of care. Some parts of this dictation were generated by voice recognition software and may contain typographical and/or grammatical inaccuracies. Related Data Allergies Allergy/AdvReac Type Severity Reaction Status Date / Time hydrocodone [From Vicodin] AdvReac Nausea and Verified 09/18/21 09:37 Vomiting morphine AdvReac Nausea and Verified 09/18/21 09:37 Vomiting Review of Systems Review of Systems: CONSTITUTIONAL: Denies fever, chills, or sweats. EYES: Denies visual changes, redness, or discharge. ENT: Denies rhinorrhea, congestion, sore throat, or otalgia. CARDIOVASCULAR: Denies chest pain, palpitations, or edema. RESPIRATORY: Denies cough or dyspnea. GASTROINTESTINAL: Reports of intermittent abdominal cramping relieved with bowel movement, nausea, vomiting and diarrhea GENITOURINARY: Denies dysuria or hematuria. SKIN: Denies rash or itching. MUSCULOSKELETAL: Denies back pain, joint pain, or myalgia. NEUROLOGIC: Denies headache, numbness, or weakness. All other systems reviewed are negative, except as documented in HPI. [facility] Past Medical History Medical History Abdominal pain Abnormal CT scan, sigmoid colon Alcoholism Anxiety Depression Gastroesophageal reflux disease HTN (hypertension) Mitral valve prolapse Overweight (BMI 25.0-29.9) Tobacco abuse Surgical History Surgical History H/O hernia repair 11/21/20 robotic assisted repair of incarcerated supraumbilical incisional hernias x 5 with 20 x 15 cm symbotex mesh in underlay position History of oophorectomy History of partial hysterectomy Family History Family History (System 05/07/21 @ 13:37 by Anjali Martinez) Sibling Chest pain Grandparent Cancer Mother Hyperthyroidism Hypertension Social History Social History (System 05/07/21 @ 13:37 by Anjali Martinez) Social History: the patient stated that she has been binge drinking for at least 2 weeks with vodka. She had gone through alcohol rehab the summer and does not want her family to know that she had a lapse. She cannot quantify how much she has been drinking the last 2 weeks. She said she had a miscarriage it had been very sad about and had been drinking heavily since then. She is and now has a fiancee. She has 1 child. She is a full code. She works at [employer] at this time. She smokes about a pack cigarettes a day for many years. Occasionally smokes marijuana. No other illicit drugs. She just moved in with her mother. Smoking packs per day: 1 Smoking cigarettes per day: 20.0 Years smoked: 12 Smoking pack-years: 12.00 Smoking status: Current every day smoker Alcohol intake: current Drinks per week: 7 Alcohol use details: HALF A FIFTH A DAY Substance use: current Substance use type: marijuana Other substance usage details: Fifth of
== END 2021-09-18 09:55 | disposition home or self-care (01) ==
PROVIDERS: Emergency Provider Nurse Practitioner Family
DX: K52.9 Noninfective gastroenteritis and colitis, unspecified (principal); F17.210 Nicotine dependence, cigarettes, uncomplicated; I10 Essential (primary) hypertension; I34.1 Nonrheumatic mitral (valve) prolapse; Z90.711 Acquired absence of uterus with remaining cervical stump
CPT/HCPCS: 99213; G0463

== ENCOUNTER 2021-10-01 12:53 | Outpatient (CLI) | payer BC, SELFPAY ==
[2021-10-01 13:52] LABS: SARS-CoV-2 RNA PCR Negative (Negative)
== END 2021-10-01 12:54 | disposition home or self-care (01) ==
LOC: CHSLAB 12:56
PROVIDERS: PCP Internal Medicine; Visit Provider Internal Medicine
DX: Z20.822 Contact with and (suspected) exposure to COVID-19 (principal)
CPT/HCPCS: C9803; U0003; U0005

== ENCOUNTER 2021-10-13 08:52 | Emergency (ER) | payer BC, SELFPAY ==
[2021-10-13 08:56] VITALS: BP 144/90; PULSE 98; RESP 20; TEMP 36.7; O2SAT 98
--- NOTE | 2021-10-13 09:26 | ED.LOWEXIN ---
HPI - Extremity Injury (Lower) General Chief Complaint: Extremity Injury, Lower Stated Complaint: pressure in hip pelvic left side Time Seen by Provider: 10/13/21 09:07 Source: patient and RN notes reviewed Mode of arrival: ambulatory Limitations: no limitations History of Present Illness HPI Narrative: Patient presents today complaining of pain to her left anterior hip after she jumped over her cat last night at home. Pain is exacerbated after she had to lift heavy objects at work this morning and she was sent in for evaluation by her boss. Denies numbness or tingling in the leg or foot. She currently rates her pain 2/10 at rest, which increases to 6/10 with walking or movement. She has taken some ibuprofen and Midol at home with some mild relief. MD complaint: hip injury Related Data Home Medications Medication Instructions Recorded Confirmed No Home Medications 10/13/21 10/13/21 Allergies Allergy/AdvReac Type Severity Reaction Status Date / Time hydrocodone [From Vicodin] AdvReac Intermediate Nausea and Verified 10/13/21 09:27 Vomiting morphine AdvReac Intermediate Nausea and Verified 10/13/21 09:27 Vomiting Review of Systems Review of Systems: CONSTITUTIONAL: Denies body aches, fever, chills, or sweats. EYES: Denies visual changes, redness, or discharge. ENT: Denies rhinorrhea, congestion, sore throat, or otalgia. CARDIOVASCULAR: Denies chest pain, palpitations, or edema. RESPIRATORY: Denies cough or dyspnea. GASTROINTESTINAL: Denies abdominal pain, nausea, vomiting, or diarrhea. GENITOURINARY: Denies dysuria or hematuria. SKIN: Denies rash, itching, or wounds. MUSCULOSKELETAL: Denies back pain, or myalgia.+ Left hip injury NEUROLOGIC: Denies headache, numbness, tingling, or weakness. PSYCH: Denies depression or anxiety. [facility] Past Medical History Medical History Abdominal pain Abnormal CT scan, sigmoid colon Alcoholism Anxiety Depression Gastroesophageal reflux disease HTN (hypertension) Mitral valve prolapse Overweight (BMI 25.0-29.9) Tobacco abuse Surgical History Surgical History H/O hernia repair 11/21/20 robotic assisted repair of incarcerated supraumbilical incisional hernias x 5 with 20 x 15 cm symbotex mesh in underlay position History of oophorectomy History of partial hysterectomy Family History Family History Sibling Chest pain Grandparent Cancer Mother Hyperthyroidism Hypertension Social History Social History Social History: the patient stated that she has been binge drinking for at least 2 weeks with vodka. She had gone through alcohol rehab the summer and does not want her family to know that she had a lapse. She cannot quantify how much she has been drinking the last 2 weeks. She said she had a miscarriage it had been very sad about and had been drinking heavily since then. She is and now has a fiancee. She has 1 child. She is a full code. She works at [employer] at this time. She smokes about a pack cigarettes a day for many years. Occasionally smokes marijuana. No other illicit drugs. She just moved in with her mother. Smoking packs per day: 1 Smoking cigarettes per day: 20.0 Years smoked: 12 Smoking pack-years: 12.00 Smoking status: Current every day smoker Alcohol intake: current Drinks per week: 7 Alcohol use details: HALF A FIFTH A DAY Substance use: current Substance use type: marijuana Other substance usage details: Fifth of vodka a day Last use: 11/06/20 Gender identity (if verbalized by the patient): Female Spiritual care concerns: No Comments At time of signature, I have reviewed and agree with nursing past medical, surgical, social and family history unless oth
== END 2021-10-13 09:32 | disposition home or self-care (01) ==
PROVIDERS: Emergency Provider Nurse Practitioner; PCP Internal Medicine
DX: S76.012A Strain of muscle, fascia and tendon of left hip, initial encounter (principal); X50.9XXA Other and unspecified overexertion or strenuous movements or postures, initial encounter; K21.9 Gastro-esophageal reflux disease without esophagitis; I10 Essential (primary) hypertension; I34.1 Nonrheumatic mitral (valve) prolapse; F17.210 Nicotine dependence, cigarettes, uncomplicated; F12.90 Cannabis use, unspecified, uncomplicated
CPT/HCPCS: 99212; G0463

== ENCOUNTER 2021-10-17 14:17 | Outpatient (CLI) | payer BC, SELFPAY ==
--- NOTE | ~2021-10-17 | XR_ITS ---
EXAMINATION: XR hip LT min 2V DATE: 10/17/2021 14:55 INDICATION: Left hip pain. TECHNIQUE: 2 views of left hip were obtained. COMPARISON: None. FINDINGS: Bone alignment is normal. No fracture. There is mild left hip osteoarthritis. IMPRESSION: 1. Mild left hip osteoarthritis. Reviewed, dictated and finalized at location A.
--- NOTE | ~2021-10-17 | XR_ITS ---
XR lumbar spine 2-3V DATE: 10/17/2021 14:55 INDICATION: Left hip pain. Left foot numbness. TECHNIQUE: AP, lateral, coned lateral lumbosacral views COMPARISON: CT abdomen pelvis FINDINGS: There is slight levoscoliosis of the lumbar spine. Bilateral L5 pars interarticularis defects with borderline grade 1/grade 2 anterolisthesis at L5-S1. Otherwise no fracture or bone destruction is noted. There is slight retrolisthesis at L4-5. There is moderately prominent loss of interspace height at L5 -S1. The lumbar interspaces appear well preserved. The sacroiliac joints are intact. IMPRESSION: Bilateral L5 pars intra-articular is defects with borderline grade 1/grade 2 anterolisthe sis at L5-S1 Minimal retrolisthesis at L4-5 Moderately prominent loss of disc space height at L5-S1 Reviewed, dictated and finalized at location A. IMPRESSION: Bilateral L5 pars intra-articular is defects with borderline grade 1/grade 2 anterolisthesis at L5-S1 Minimal retrolisthesis at L4-5 Moderately prominent loss of disc space height at L5-S1
[2021-10-17 14:37] LABS: Basophils Absolute Auto 0.12 K/mm3 (0.00-0.10); Basophils Percent Auto 1.4 % (0.0-1.0); Eosinophils Absolute Auto 0.19 K/mm3 (0.02-0.50); Eosinophils Percent Auto 2.2 % (1.0-6.0); Hematocrit 42.8 % (35.0-49.0); Hemoglobin 14.8 g/dL (12.0-15.0); Immature Granulocyte Absolute 0.06 K/mm3 (0.00-0.00); Immature Granulocyte Percent A 0.7 % (0.0-0.0); Lymphocytes Absolute Auto 3.33 K/mm3 (1.10-4.50); Mean Corpuscular HGB Conc 34.6 g/dL (32.0-36.0); Mean Corpuscular Hemoglobin 35.1 pg (27.0-31.0); Mean Corpuscular Volume 101.4 fL (78.0-102.0); Mean Platelet Volume 9.3 fl (9.2-11.8); Monocytes Absolute Auto 0.91 K/mm3 (0.10-0.90); Monocytes Percent Auto 10.7 % (2.0-11.0); Neutrophils Absolute Auto 3.9 K/mm3 (1.7-7.2); Platelet Count Result 357 K/mm3 (150-420); Red Blood Count 4.22 M/mm3 (4.20-5.40); Red Cell Distribution Width 18.3 % (11.6-14.4); White Blood Count 8.5 K/mm3 (4.8-10.8)
[2021-10-17 15:43] LABS: Alanine Aminotransferase 88 U/L (14-59); Albumin Level 3.2 g/dL (3.4-5.0); Alkaline Phosphatase 160 U/L (46-116); Anion Gap 12 mmol/L (8-16); Aspartate Amino Transferase 150 U/L (15-37); Bilirubin,Total 0.3 mg/dL (0.00-1.00); Blood Urea Nitrogen 6 mg/dL (7-18); Calcium 8.7 mg/dL (8.5-10.1); Carbon Dioxide 28 mmol/L (21-32); Chloride 102 mmol/L (98-108); Estimated Glomerular Filt Rate > 60; Glucose 93 mg/dL (70-99); Osmolality Calculated 291 mOsm/kg (285-295); Potassium 2.8 mmol/L (3.5-5.1); Sodium 142 mmol/L (136-145); Total Protein 7.1 g/dL (6.4-8.2)
== END 2021-10-17 14:18 | disposition home or self-care (01) ==
LOC: CHSLAB 14:19
PROVIDERS: PCP Internal Medicine; Visit Provider Internal Medicine
DX: M54.50 Low back pain, unspecified (principal); M25.552 Pain in left hip; R20.0 Anesthesia of skin; E61.2 Magnesium deficiency
CPT/HCPCS: 36415; 72100; 73502; 80053; 83735; 85025

== ENCOUNTER 2021-10-21 14:25 | Outpatient (CLI) | payer BC, SELFPAY ==
--- NOTE | ~2021-10-21 | US_ITS ---
EXAMINATION: US arterial ankle brachial ind EXAM DATE: 10/21/2021 14:54 INDICATION: Left leg numbness, absent left DP. TECHNIQUE: Segmental pressures and plethysmographic and Doppler waveforms of the brachial and lower e xtremity arteries were obtained. There is no prior study for comparison. FINDINGS: Right and left brachial artery pressures of 140 mm Hg and 140 mm Hg, respectively, are concordant (no rmal difference <= 30 mmHg). RIGHT LEG: The ankle-brachial index (LUKAS) is 1.21 (normal >= 0.9-1). The lower extremity ratios, segmental pressure gradients as follows; Dorsalis pedis: 1.20 (168 mmHg). Posterior tibial: 1.21 (170 mmHg). Right great toe pressure of 139 mmHg. Normal TBI of 0.99 (Normal gradients <= 20-30 mmHg between adjacent levels on the same leg or the same levels on the two legs). Arterial waveforms are monophasic PT, biphasic DP. LEFT LEG: The ankle-brachial index (LUKAS) is 1.17 (normal >= 0.9-1). The lower extremity ratios, segmental pressure gradients as follows; Dorsalis pedis: 1.17 (164 mmHg). Posterior tibial: 0.95 (133 mmHg). Left great toe pressure of 125 mmHg. Normal TBI of 0.89 (Normal gradients <= 20-30 mmHg between adjacent levels on the same leg or the same levels on the two legs). Arterial waveforms are biphasic PT, monophasic DP. IMPRESSION: 1. Right ankle-brachial index 1.21, normal. 2. Left ankle-brachial index 1.17, normal. Reviewed, dictated and finalized at location A.
== END 2021-10-21 14:26 | disposition home or self-care (01) ==
LOC: CHSIMG 14:26
PROVIDERS: PCP Internal Medicine; Visit Provider Internal Medicine
DX: R20.0 Anesthesia of skin (principal); R09.89 Other specified symptoms and signs involving the circulatory and respiratory systems
CPT/HCPCS: 93922

== ENCOUNTER 2021-10-27 08:53 | Outpatient (RCR) | payer BC, SELFPAY ==
--- NOTE | 2021-10-27 09:35 | PTOPEVAL ---
Thank you for referring Audrey Valentin to [facility].? The patient is scheduled to be seen for therapy? __2__x/week for 10 visits. Please review, sign, date and return this plan of care REMBERTO. I agree with and certify that the following plan of care is medically necessary. 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 Respiratory History Hx Respiratory Disorders No Significant History Gastrointestinal History Hx Colitis Yes: 2019 Hx Diverticulitis Yes Hx Gastroesophageal Reflux Disease Yes Hx Hernia Yes: X5 VENTRAL HERNIAS Hx Pancreatitis Yes: 02/2020 Genitourinary History Hx Genitourinary Disorders No Significant History Musculoskeletal History Hx Musculoskeletal Disorders No Significant History Hematological History Hx Hematological Disorders No Significant History Endocrine History Hx Endocrine Disorders No Significant History HEENT History Hx Dental Problems Yes: POOR DENTITION - MISSING AND LOOSE Hx Other HEENT Disorders Yes: near sighted Integumentary History Hx Skin Disorders No Significant History Reproductive History Hx Other Reproductive Disorders Yes: RSO, RUPTURED OVARIAN TORSION, MISCARRIAGE Psychosocial History Hx Anxiety Yes: NO MEDS CURRENTLY Hx Depression Yes Pain History History of Any Previous or Ongoing No Significant History Instance of Pain Anesthesia History Hx Anesthesia Reactions No Significant History Evaluation Information Problem Diagnosis back pain Subjective Information Pt. reports that in the recent Query Text:As Reported By Patient/ 6 months she has noticed an Family increase in low band mid back pain intensity. she reports that most pain is located in the lower back. 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 She reports that she has difficulty with sleeping
== END 2021-10-29 09:27 | disposition home or self-care (01) ==
LOC: CHSPT 08:53
PROVIDERS: PCP Internal Medicine; Visit Provider Internal Medicine
DX: M54.9 Dorsalgia, unspecified (principal)
CPT/HCPCS: 97014; 97110; 97140; 97161; G0283

== ENCOUNTER 2021-11-10 16:11 | Observation (INO) | payer BC, SELFPAY ==
--- NOTE | ~2021-11-10 | CT_ITS ---
EXAMINATION: CT abdomen pelvis wo con DATE: 11/11/2021 16:46 INDICATION: Epigastric pain and transaminitis TECHNIQUE: Computed tomography (CT) of the abdomen and pelvis was performed without intravenous contr ast. The dose-length product (DLP) was 977.14 mGy-cm. Automated exposure control and iterative recons truction technique were employed. COMPARISON: 10/17/2020 FINDINGS: Minimal dependent atelectasis is present in the lung bases. The heart size is normal. The l iver is diffusely low in attenuation when compared with the spleen, consistent with hepatic steatosis . There is mild edematous stranding surrounding the pancreas. The spleen, gallbladder, and adrenal gl ands are unremarkable. Nonobstructing stones of the right kidney measure up to 5 mm. The left kidney is unremarkable. No pathologically enlarged abdominal or pelvic lymph nodes are identified. There is no free intraperitoneal gas or evidence of bowel obstruction. There is subtle inflammatory change saul r the sigmoid colon. A 5.6 cm dermoid of the left adnexa has increased in size. There are bilateral L 5 pars defects with grade 1 anterolisthesis of L5 on S1. IMPRESSION: 1. Subtle fat stranding surrounding the pancreas which could reflect early pancreatitis. 2. 5.6 cm dermoid of the left adnexa with increase in size. 3. Subtle inflammation of the sigmoid colon, possible diverticulitis. 4. Nonobstructing right nephrolithiasis. Reviewed, dictated and finalized at location F. IMPRESSION: 1. Subtle fat stranding surrounding the pancreas which could reflect early panc reatitis. 2. 5.6 cm dermoid of the left adnexa with increase in size. 3. Subtle inflammation of the sigmoid colon, possible diverticulitis. 4. Nonobstructing right nephrolithiasis.
[2021-11-10 16:44] VITALS: BP 154/115; PULSE 108; RESP 16; TEMP 36.3; O2SAT 99
--- NOTE | 2021-11-10 16:46 | ECG_ITS ---
Measurements Intervals [place] Rate: 101 P: 67 PA: 155 QRS: 92 QRSD: 86 T: 44 QT: 351 QTc: 456 Interpretive Statements SINUS TACHYCARDIA BORDERLINE RIGHT AXIS DEVIATION [QRS AXIS > 90] ABNORMAL RHYTHM ECG COMPARED TO ECG 11/19/2020 10:03:15 SINUS TACHYCARDIA NOW PRESENT Electronically Signed On 11-12-2021 13:09:30 CDT by Christa Olivas M.D.
[2021-11-10 17:00] LABS: Basophils Absolute Auto 0.1 K/mm3 (0.0-0.1); Basophils Percent Auto 0.8 % (0.2-1.2); Eosinophils Absolute Auto 0.1 K/mm3 (0-0.3); Eosinophils Percent Auto 0.5 % (0-4.4); Hematocrit 48.8 % (37.0-47.0); Hemoglobin 16.4 g/dL (12.0-15.0); Immature Granulocyte Absolute 0.04 K/mm3 (0.00-0.031); Immature Granulocyte Percent A 0.4 % (0-0.5); Lymphocytes Absolute Auto 1.75 K/mm3 (0.9-3.2); Mean Corpuscular HGB Conc 33.6 g/dl (32-36); Mean Corpuscular Hemoglobin 35.8 pg (26-34); Mean Corpuscular Volume 106.6 fl (80-100); Mean Platelet Volume 10.2 fl (7.4-10.4); Monocytes Absolute Auto 0.6 K/mm3 (0.1-0.6); Monocytes Percent Auto 6.8 % (2.6-8.5); Neutrophils Absolute Auto 6.7 K/mm3 (1.3-6.7); Neutrophils Percent Auto 72.5 % (45.5-73.1); Platelet Count Result 256 k/mm3 (150-375); Red Blood Count 4.58 M/mm3 (4.2-5.4); Red Cell Distribution Width 16.8 % (11.5-14.5); White Blood Count 9.2 K/mm3 (4.5-10.0)
[2021-11-10 17:14] LABS: Ethanol < 10 mg/dL (<10)
[2021-11-10 17:26] LABS: Add Urine Microscopic? YES; Appearance Urine Cloudy (Clear); Bilirubin Urine 2+ (Negative); Blood Urine 2+ (Negative); Color Urine Amber (Yellow); Glucose Urine UA Negative (Negative); Ketones Urine Trace mg/dL (Negative); Leukocyte Esterase Ur 3+ LEU/UL (Negative); Mucus Urine Heavy /lpf; Nitrate Urine Negative (Negative); Protein Urine 2+ mg/dL (Negative); RBC Urine >75 /hpf (0-2); Squamous Epithelial Cell Urine Many /hpf (Few); WBC Urine >75 /hpf
[2021-11-10 17:27] LABS: Specific Grav Ur 1.044 (1.001-1.035)
--- NOTE | 2021-11-10 21:01 | ED.ABDPAIN ---
HPI - Abdominal Pain General Chief Complaint: Abdominal Pain Stated Complaint: COVID+, alcohol withdrawal s/s Time Seen by Provider: 11/10/21 20:26 Source: patient Mode of arrival: ambulatory Limitations: no limitations History of Present Illness HPI narrative: Pt is getting outpatient treatment for alcoholism. Pt says she stopped drinking on her own last night and today began feeling very anxious and felt like her heart was racing and she hurts all over including her right flank and epigastric area. Pt denies dysuria or frequency. MD elicited complaint: abdominal pain and flank pain Pain Consistency: intermittent Location: epigastric and R flank Radiation: none Migration to: no migration Exacerbating factors: nothing Relieving factors: nothing Related Data Home Medications Medication Instructions Recorded Confirmed nirmatrelvir-ritonavir [Paxlovid 3 tablet PO BID 11/10/21 11/11/21 (EUA)] omeprazole magnesium [Prilosec OTC] 20 mg PO DAILY 11/10/21 11/11/21 potassium chloride 20 meq PO DAILY 11/10/21 11/11/21 Allergies Allergy/AdvReac Type Severity Reaction Status Date / Time morphine AdvReac Intermediate Nausea and Verified 11/11/21 01:46 Vomiting hydrocodone [From Vicodin] AdvReac Mild Nausea and Verified 11/11/21 01:46 Vomiting Review of Systems Review of Systems: All systems reviewed & are unremarkable except as noted in HPI and below PMFSH Past Medical History Medical History Abdominal pain Abnormal CT scan, sigmoid colon Alcoholism Anxiety Depression Gastroesophageal reflux disease HTN (hypertension) Mitral valve prolapse Overweight (BMI 25.0-29.9) Tobacco abuse Surgical History Surgical History H/O hernia repair 11/21/20 robotic assisted repair of incarcerated supraumbilical incisional hernias x 5 with 20 x 15 cm symbotex mesh in underlay position History of oophorectomy History of partial hysterectomy Family History Family History Sibling Chest pain Grandparent Cancer Mother Hyperthyroidism Hypertension Social History Social History Social History: the patient stated that she has been binge drinking for at least 2 weeks with vodka. She had gone through alcohol rehab the summer and does not want her family to know that she had a lapse. She cannot quantify how much she has been drinking the last 2 weeks. She said she had a miscarriage it had been very sad about and had been drinking heavily since then. She is and now has a fiancee. She has 1 child. She is a full code. She works at [employer] at this time. She smokes about a pack cigarettes a day for many years. Occasionally smokes marijuana. No other illicit drugs. She just moved in with her mother. Smoking packs per day: 1 Smoking cigarettes per day: 20.0 Years smoked: 16 Smoking pack-years: 16.00 Smoking status: Current every day smoker Tobacco type: cigarettes Alcohol intake: current Drinks per week: 7 Alcohol use details: HALF A FIFTH A DAY Substance use: current Substance use type: marijuana Other substance usage details: Fifth of vodka a day Last use: 11/06/20 Gender identity (if verbalized by the patient): Female Spiritual care concerns: No Exam Const: General: no acute distress Orientation/consciousness: patient oriented x3 HENMT: Head: normal to inspection Eyes: Conjunctivae: conjunctivae normal Pupils: Equal, round and reactive pupils present Neck: Neck: normal visual inspection and no lymphadenopathy Resp: Effort & Inspection: normal respiratory effort Auscultation: clear to auscultation bilaterally Cardio: Rate: regular rate Rhythm: regular rhythm GI: GI Palp: Yes Soft to palpation and Yes Tenderness to palpati
[2021-11-10 21:30] VITALS: BP 136/99; PULSE 100; RESP 22; O2SAT 100
[2021-11-10 21:30] LABS: Alanine Aminotransferase 40 U/L (4-35); Albumin Level 3.7 g/dL (3.5-5.1); Alkaline Phosphatase 177 U/L (38-126); Anion Gap 10 mmol/L (8-16); Aspartate Amino Transferase 212 U/L (14-36); Bilirubin,Total 1.4 mg/dL (0.2-1.3); Blood Urea Nitrogen 9 mg/dL (7-17); Calcium 8.7 mg/dL (8.4-10.2); Carbon Dioxide 22 mmol/L (22-30); Chloride 102 mmol/L (98-107); Estimated CRCL calculation 152 ml/min; Estimated Glomerular Filt Rate > 60; Glucose 99 mg/dL (65-110); Lipase 268 U/L (23-300); Potassium 3.2 mmol/L (3.4-5.0); Sodium 134 mmol/L (137-145)
--- NOTE | 2021-11-10 21:30 | PC.NURSE ---
COVID: Patient states that she tested positive for COVID on 11/06/21 Onset of symptoms 11/04/21. Has one day left of antiviral medications prescribed by PCP. ETOH: Last alcoholic beverage on 11/09/2021. Typically drinks >750mL Vodka/ day. Has been trying to taper down ETOH over the last few days.
[2021-11-10 21:33] VITALS: BP 136/99; PULSE 92; RESP 18; O2SAT 99
[2021-11-10] MEDS: LORazepam INJ (*CRX) 2 MG/ML VIAL IM (21:40)
[2021-11-10 22:22] LABS: Pregnancy On Board Control Positive; Urine Pregnancy Test Negative
--- NOTE | 2021-11-10 22:51 | PM.IMHP ---
H&P: HPI History of Present Illness Date/Time: 11/10/21 22:51 Chief Complaint: Tremors. Narrative: This is a 31-year-old female with past medical history significant for alcohol dependence, tobacco dependence. Patient comes to the emergency room after she decided to quit drinking she roughly drinks a 5th of vodka daily she has been seeking out help to quit the habit and presented to the emergency room with uncontrollable tremors and abdominal pain, formication, auditory hallucinations. Patient has been in her usual state of health prior to this she denies any nausea, any vomiting, any diarrhea, no syncope, no near syncope ,no lightheadedness, no dizziness, no fevers, no rigors ,no chills, no leg swelling. In emergency room patient was found to have alcohol withdrawal. Patient is been admitted for further evaluation management and treatment. Review of Systems Review of Systems: Tremors, abdominal pain, after going 1 day without drinking alcohol. Patient wants to quit the habit. Constitutional: Constitutional: Denies chills, Denies fatigue, Denies fever(s), Denies malaise, Denies night sweats, Denies poor appetite and Denies weakness Eyes: Eyes: Denies change in vision ENT: Denies dysphagia, Denies vertigo, Denies dizziness, Denies nasal congestion, Denies nasal discharge, Denies nasal obstruction and Denies odynophagia Cardiovascular: Cardiovascular: Denies chest pain, Denies pedal edema, Denies leg edema, Denies lightheadedness, Denies radiating jaw, neck or arm pain, Denies palpitations, Denies dyspnea on exertion and Denies orthopnea Respiratory: Respiratory: Denies cough and Denies excessive phlegm production Gastrointestinal: Gastrointestinal: Reports abdominal pain, Denies dyspepsia, Denies heartburn, Denies diarrhea, Denies nausea and Denies vomiting Genitourinary: Genitourinary: Denies dysuria Musculoskeletal: Musculoskeletal: Denies back pain, Denies arthralgias and Denies joint swelling Integumentary/Breasts: Skin/Breast: Denies rash Neurologic: Reports tingling and Reports tremor(s) Psychiatric: Psychiatric: Reports auditory hallucinations, Reports hallucinations and Reports tactile hallucinations Endocrine: Endocrine: Denies cold intolerance, Denies flushing, Denies heat intolerance, Denies polyphagia, Denies polydipsia and Denies palpitations Hematologic/Lymphatic: Hematologic/Lymphatic: Reports no additional hematologic/lymphatic complaints and Reports as per HPI Allergic/Immunologic: Allergic/Immunologic: Reports no additional allergic/immunologic complaints and Reports as per HPI [facility] Past Medical History Medical History Abdominal pain Abnormal CT scan, sigmoid colon Alcoholism Anxiety Depression Gastroesophageal reflux disease HTN (hypertension) Mitral valve prolapse Overweight (BMI 25.0-29.9) Tobacco abuse Surgical History Surgical History H/O hernia repair 11/21/20 robotic assisted repair of incarcerated supraumbilical incisional hernias x 5 with 20 x 15 cm symbotex mesh in underlay position History of oophorectomy History of partial hysterectomy Family History Family History Sibling Chest pain Grandparent Cancer Mother Hyperthyroidism Hypertension Social History Social History Social History: the patient stated that she has been binge drinking for at least 2 weeks with vodka. She had gone through alcohol rehab the summer and does not want her family to know that she had a lapse. She cannot quantify how much she has been drinking the last 2 weeks. She said she had a miscarriage it had been very sad about and had been drinking heavily since then. She is and now has a fiancee. She has 1 child. She is a full code. She works at [employer] at this time.
[2021-11-10] MEDS: KETOROLAC 30 MG/ML VIAL (*BKC) IV PUSH (23:13)
[2021-11-10] MEDS: ONDANSETRON INJ 4 MG/2 ML VIAL IV PUSH (23:13)
[2021-11-10] MEDS: cefTRIAXone 2 GM in SODIUM CHLORIDE 0.9% IV 100 ML 200 ML IVPB (23:14)
[2021-11-11] VITALS (11 sets, daily range): BP systolic 110–147; BP diastolic 92–103; PULSE 80–112; RESP 16–20; TEMP 35.7–36.8; O2SAT 94–99; BMI 30.9
--- NOTE | 2021-11-11 00:26 | ADMGEN ---
This patient, Audrey Valentin, was admitted to [facility] Surg Room 303-01. Patient/family oriented to hospital policies and general routines including ID bracelet, bed and alarms, visiting hours, pain management, procedures, bathroom and other care routines, personal items, smoking policy, room service/diet, and visiting hours. Information on how to activate the Rapid Response Team has been discussed. Patient/Family are encouraged to report perceived risks to care and to ask questions if they do not understand what they are told or what they should do.
[2021-11-11] MEDS: SODIUM CHLORIDE 0.9% IV 1,000 ML 125 ML IV CONT (00:55)
[2021-11-11] MEDS: chlordiazePOXIDE (*CRX) 25 MG CAPSULE 50 MG PO ×5 (01:18→23:03)
--- NOTE | 2021-11-11 02:41 | PHAR ---
The patient's home med of Nirmatrelvir-Ritonavir [Paxlovid (Eua)] 150 mg x 2- 100 mg tablet has been verified.
[2021-11-11] MEDS: LORazepam INJ (*CRX) 2 MG/ML VIAL 1 MG IV PUSH (03:03)
[2021-11-11] MEDS: THIAMINE HCL INJ 100 MG, FOLIC ACID INJ 1 MG, MULTIVITAMINS-12 INJ VIAL 1 5 ML, MULTIVI... IV CONT (05:20)
[2021-11-11] MEDS: POTASSIUM CHLORIDE 20 MEQ TABLET 40 MEQ PO (08:48)
[2021-11-11] MEDS: THIAMINE HCL 100 MG TABLET PO (08:48)
[2021-11-11] MEDS: FOLIC ACID 1 MG TABLET PO (08:48)
[2021-11-11] MEDS: PANTOPRAZOLE 40 MG TABLET PO (08:48)
[2021-11-11] MEDS: KETOROLAC 30 MG/ML VIAL (*BKC) IV PUSH (08:51)
--- NOTE | 2021-11-11 11:15 | PM.IMPN ---
Progress Note: A&P Assessment and Plan (1) Alcohol abuse with withdrawal: Code(s): F10.139 - Alcohol abuse with withdrawal, unspecified Status: Acute Assessment and Plan: Patient reports drinking a fifth of vodka or more daily for several years. Her last drink was 11/09/2021 Reports she was trying to manage withdrawal at home could not tolerate due to excessive tremors CIWA score has been elevated. Continue CIWA protocol Scheduled Librium 50 mg q.6. Wean as tolerated Ativan p.r.n. acute agitation/anxiety Supportive care Thiamine and folic acid She is looking into an outpatient rehab programs upon discharge. Her PCP has been helping her with this (2) COVID-19 ruled out by laboratory testing: Code(s): Z20.822 - Contact with and (suspected) exposure to COVID-19 Status: Acute Assessment and Plan: Patient reports positive COVID test at home on 11/06/2021 Had been on Paxlovid antiviral per PCP COVID PCR this facility is negative Discontinue home antiviral medication Maintaining adequate oxygenation. Patient is asymptomatic. Discontinue isolation precautions (3) Epigastric pain: Code(s): R10.13 - Epigastric pain Status: Acute Assessment and Plan: Complains of mild epigastric discomfort Lipase within normal limits on presentation Will proceed with CT abdomen/pelvis in light of pain and elevated LFTs (4) Transaminitis: Code(s): R74.01 - Elevation of levels of liver transaminase levels Status: Acute Assessment and Plan: LFTs are markedly elevated Trend LFTs CT a/p pending as above (5) HTN (hypertension): Code(s): I10 - Essential (primary) hypertension Status: Acute Assessment and Plan: Patient with history of hypertension not on any antihypertensives. Blood pressures are elevated target Likely worsened due to acute withdrawal and anxiety Monitor blood pressure trends Likely secondary to withdrawal (6) Tobacco abuse: Code(s): Z72.0 - Tobacco use Status: Chronic Assessment and Plan: Smokes 1 pack per day At this time she will need to focus on alcohol cessation Nicotine patch available as needed (7) Abnormal urinalysis: Code(s): R82.90 - Unspecified abnormal findings in urine Status: Acute Assessment and Plan: Urinalysis abnormal with 3+ leuk esterase and >75 WBC. Also with many squamous cells concerning for contamination Patient denies urinary symptoms Urine cultures pending Continue IV Rocephin while awaiting results Subjective Date/time seen: 11/11/21 11:15 Interval history: Date of service: 11/11/2021 Audrey Valentin is a 31-year-old female with a history of anxiety, depression, alcohol abuse is seen in follow-up for alcohol withdrawal and COVID-19. Patient states she developed a cough but did not think much of it. She then received just call with her son's school that he tested positive for COVID and she took a home test 11/06 which showed she also had COVID. She denies shortness of breath but does endorse cough productive of greenish sputum. She is having withdrawal symptoms including hallucinations - I can see all the shadows moving , tremors, sweats. She endorses abdominal pain and diarrhea. States she has been having multiple panic attacks that are so severe that she begins shaking and cannot focus on anything. She denies chest pain or palpitations. She had emesis yesterday but today denies nausea or vomiting. She does have some mild epigastric pain which she rates as 5/10, she states she is concerned that she has pancreatitis as she has had this in the past and it feels similar. Review of Systems Review of Systems: All systems reviewed & are unremarkable except as noted in HPI and below Exam Narrative: General: well-nourished, ill-appearing 31-year-old female, sitting up in bed, comfortable, NARD Neuro: awake, alert and orient
[2021-11-11 11:36] LABS: EDCOVIDSCREEN Negative (Negative)
[2021-11-11 12:12] LABS: Alanine Aminotransferase 56 U/L (4-35); Albumin Level 3.3 g/dL (3.5-5.1); Alkaline Phosphatase 155 U/L (38-126); Anion Gap 7 mmol/L (8-16); Aspartate Amino Transferase 339 U/L (14-36); Bilirubin,Total 1.2 mg/dL (0.2-1.3); Blood Urea Nitrogen 12 mg/dL (7-17); Calcium 8.1 mg/dL (8.4-10.2); Carbon Dioxide 23 mmol/L (22-30); Chloride 106 mmol/L (98-107); Estimated CRCL calculation 116 ml/min; Estimated Glomerular Filt Rate > 60; Glucose 101 mg/dL (65-110); Potassium 3.9 mmol/L (3.4-5.0); Sodium 136 mmol/L (137-145)
[2021-11-11] MEDS: LORazepam (*CRX) 0.5 MG TABLET PO ×2 (13:52→20:20)
[2021-11-12] VITALS (9 sets, daily range): BP systolic 128–131; BP diastolic 93–99; PULSE 78–107; RESP 18–19; TEMP 35.7–36.5; O2SAT 95–98
[2021-11-12] MEDS: chlordiazePOXIDE (*CRX) 25 MG CAPSULE 50 MG PO (05:21)
[2021-11-12 06:05] LABS: Hemoglobin 12.8 g/dL (12.0-15.0); Mean Corpuscular HGB Conc 33.7 g/dl (32-36); Mean Corpuscular Hemoglobin 36.4 pg (26-34); Mean Platelet Volume 10.5 fl (7.4-10.4); Platelet Count Result 160 k/mm3 (150-375); Red Blood Count 3.52 M/mm3 (4.2-5.4); Red Cell Distribution Width 16.6 % (11.5-14.5); White Blood Count 6.2 K/mm3 (4.5-10.0)
[2021-11-12 06:26] LABS: Alanine Aminotransferase 49 U/L (4-35); Albumin Level 2.8 g/dL (3.5-5.1); Alkaline Phosphatase 124 U/L (38-126); Anion Gap 4 mmol/L (8-16); Aspartate Amino Transferase 213 U/L (14-36); Blood Urea Nitrogen 14 mg/dL (7-17); Carbon Dioxide 26 mmol/L (22-30); Chloride 107 mmol/L (98-107); Estimated CRCL calculation 134 ml/min; Estimated Glomerular Filt Rate > 60; Glucose 98 mg/dL (65-110); Lipase 172 U/L (23-300); Potassium 3.6 mmol/L (3.4-5.0); Sodium 137 mmol/L (137-145)
[2021-11-12] MEDS: THIAMINE HCL 100 MG TABLET PO (08:57)
[2021-11-12] MEDS: FOLIC ACID 1 MG TABLET PO (08:57)
[2021-11-12] MEDS: PANTOPRAZOLE 40 MG TABLET PO (08:57)
[2021-11-12] MEDS: chlordiazePOXIDE (*CRX) 25 MG CAPSULE PO ×2 (13:47→18:25)
--- NOTE | 2021-11-12 14:24 | P.PNIM_ITS ---
Progress Note: A&P Assessment and Plan (1) Alcohol abuse with withdrawal: Code(s): F10.139 - Alcohol abuse with withdrawal, unspecified Status: Acute Assessment and Plan: Patient reports drinking a fifth of vodka or more daily for several years. Her last drink was 11/09/2021 * Reports she was trying to manage withdrawal at home could not tolerate due to excessive tremors * CIWA score has been elevated but improved, ranging from 3-4 today. Continue CIWA protocol * Continue scheduled Librium, wean to 25 mg q.6h * Ativan p.r.n. acute agitation/anxiety * Supportive care * Thiamine and folic acid * She is looking into an outpatient rehab programs upon discharge. Her PCP has been helping her with this (2) Epigastric pain: Code(s): R10.13 - Epigastric pain Status: Acute Assessment and Plan: Complains of mild epigastric discomfort * Lipase within normal limits on presentation * CT a/p revealed subtle fat stranding surrounding pancreas which could possibly reflect early pancreatitis. She is tolerating diet. Lipase is within normal limits. No further treatment required * Symptoms may be related to gastritis in setting of excess alcohol use. Increase Protonix to 40 mg BID. (3) Abnormal urinalysis: Code(s): R82.90 - Unspecified abnormal findings in urine Status: Acute Assessment and Plan: Urinalysis abnormal with 3+ leuk esterase and >75 WBC. Also with many squamous cells concerning for contamination * Patient denies urinary symptoms * Urine culture with growth of [phone] CFU Klebsiella pneumoniae * Given low colony count, lack of symptoms, no clinical findings to just acute infection, no need for further treatment at this time. Discontinue Rocephin (4) Transaminitis: Code(s): R74.01 - Elevation of levels of liver transaminase levels Status: Acute Assessment and Plan: LFTs markedly elevated secondary to acute alcohol abuse * LFTs trending down today (5) HTN (hypertension): Code(s): I10 - Essential (primary) hypertension Status: Acute Assessment and Plan: Patient with history of hypertension not on any antihypertensives. Blood pressures elevated above target * Likely worsened due to acute withdrawal and anxiety * Monitor blood pressure trends (6) Tobacco abuse: Code(s): Z72.0 - Tobacco use Status: Chronic Assessment and Plan: Smokes 1 pack per day * Continue nicotine patch * Smoking cessation education not provided as alcohol cessation is imperative at this time and should be focused on first (7) Abnormal CT of the abdomen: Code(s): R93.5 - Abnormal findings on diagnostic imaging of other abdominal regions, including retroperitoneum Status: Acute Assessment and Plan: CT abdomen/pelvis showed the following incidental findings: * 5.6 cm dermoid cyst of the left adnexa. Will need CELL PLASTERER follow-up, consider outpatient pelvic ultrasound * Subtle inflammation of the sigmoid colon concerning for diverticulitis. Patient is asymptomatic and no signs/symptoms to suggest acute infection. No further evaluation/treatment required (8) COVID-19 ruled out by laboratory testing: Code(s): Z20.822 - Contact with and (suspected) exposure to COVID-19 Status: Acute Assessment and Plan: Patient reports positive COVID test at home on 11/06/2021 * Had been on Paxlovid antiviral per PCP * COVID PCR at this facility negative on 11/12/21 * Discontinued home antiviral medication * Flaco
--- NOTE | 2021-11-12 14:24 | PM.IMPN ---
Progress Note: A&P Assessment and Plan (1) Alcohol abuse with withdrawal: Code(s): F10.139 - Alcohol abuse with withdrawal, unspecified Status: Acute Assessment and Plan: Patient reports drinking a fifth of vodka or more daily for several years. Her last drink was 11/09/2021 Reports she was trying to manage withdrawal at home could not tolerate due to excessive tremors CIWA score has been elevated but improved, ranging from 3-4 today. Continue CIWA protocol Continue scheduled Librium, wean to 25 mg q.6h Ativan p.r.n. acute agitation/anxiety Supportive care Thiamine and folic acid She is looking into an outpatient rehab programs upon discharge. Her PCP has been helping her with this (2) Epigastric pain: Code(s): R10.13 - Epigastric pain Status: Acute Assessment and Plan: Complains of mild epigastric discomfort Lipase within normal limits on presentation CT a/p revealed subtle fat stranding surrounding pancreas which could possibly reflect early pancreatitis. She is tolerating diet. Lipase is within normal limits. No further treatment required Symptoms may be related to gastritis in setting of excess alcohol use. Increase Protonix to 40 mg BID. (3) Abnormal urinalysis: Code(s): R82.90 - Unspecified abnormal findings in urine Status: Acute Assessment and Plan: Urinalysis abnormal with 3+ leuk esterase and >75 WBC. Also with many squamous cells concerning for contamination Patient denies urinary symptoms Urine culture with growth of [phone] CFU Klebsiella pneumoniae Given low colony count, lack of symptoms, no clinical findings to just acute infection, no need for further treatment at this time. Discontinue Rocephin (4) Transaminitis: Code(s): R74.01 - Elevation of levels of liver transaminase levels Status: Acute Assessment and Plan: LFTs markedly elevated secondary to acute alcohol abuse LFTs trending down today (5) HTN (hypertension): Code(s): I10 - Essential (primary) hypertension Status: Acute Assessment and Plan: Patient with history of hypertension not on any antihypertensives. Blood pressures elevated above target Likely worsened due to acute withdrawal and anxiety Monitor blood pressure trends (6) Tobacco abuse: Code(s): Z72.0 - Tobacco use Status: Chronic Assessment and Plan: Smokes 1 pack per day Continue nicotine patch Smoking cessation education not provided as alcohol cessation is imperative at this time and should be focused on first (7) Abnormal CT of the abdomen: Code(s): R93.5 - Abnormal findings on diagnostic imaging of other abdominal regions, including retroperitoneum Status: Acute Assessment and Plan: CT abdomen/pelvis showed the following incidental findings: 5.6 cm dermoid cyst of the left adnexa. Will need ALUMNAE SECRETARY follow-up, consider outpatient pelvic ultrasound Subtle inflammation of the sigmoid colon concerning for diverticulitis. Patient is asymptomatic and no signs/symptoms to suggest acute infection. No further evaluation/treatment required (8) COVID-19 ruled out by laboratory testing: Code(s): Z20.822 - Contact with and (suspected) exposure to COVID-19 Status: Acute Assessment and Plan: Patient reports positive COVID test at home on 11/06/2021 Had been on Paxlovid antiviral per PCP COVID PCR at this facility negative on 11/12/21 Discontinued home antiviral medication Maintaining adequate oxygenation. Patient is asymptomatic. Isolation precautions discontinued Subjective Date/time seen: 11/12/21 14:24 Interval history: Date of service: 11/12/2021 Audrey Valentin is a 31-year-old female with a history of anxiety, depression, alcohol abuse is seen in follow-up for alcohol withdrawal and UTI. Patient states that she is feeling a lot better today. No longer experiencing hallucinations, sweats, tr
[2021-11-12] MEDS: NICOTINE (*PBKC) 21 MG PATCH 1 PATCH TRANSDERM (17:17)
[2021-11-12] MEDS: IBUPROFEN 600 MG TABLET PO (20:06)
[2021-11-13] VITALS: PULSE 76
[2021-11-13] MEDS: chlordiazePOXIDE (*CRX) 25 MG CAPSULE PO ×3 (00:09→11:42)
[2021-11-13 04:00] VITALS: PULSE 70
[2021-11-13 06:00] VITALS: BP 145/112; PULSE 78; RESP 18; TEMP 36.2; O2SAT 98
[2021-11-13 08:00] VITALS: PULSE 105
[2021-11-13 08:30] LABS: Alanine Aminotransferase 46 U/L (4-35); Albumin Level 2.9 g/dL (3.5-5.1); Alkaline Phosphatase 165 U/L (38-126); Anion Gap 5 mmol/L (8-16); Aspartate Amino Transferase 144 U/L (14-36); Bilirubin,Total 0.7 mg/dL (0.2-1.3); Blood Urea Nitrogen 18 mg/dL (7-17); Calcium 8.5 mg/dL (8.4-10.2); Carbon Dioxide 26 mmol/L (22-30); Chloride 108 mmol/L (98-107); Estimated CRCL calculation 158 ml/min; Estimated Glomerular Filt Rate > 60; Glucose 86 mg/dL (65-110); Potassium 3.9 mmol/L (3.4-5.0); Sodium 139 mmol/L (137-145)
[2021-11-13 08:48] LABS: Hematocrit 37.3 % (37.0-47.0); Hemoglobin 12.2 g/dL (12.0-15.0); Mean Corpuscular HGB Conc 32.7 g/dl (32-36); Mean Corpuscular Hemoglobin 35.9 pg (26-34); Mean Corpuscular Volume 109.7 fl (80-100); Mean Platelet Volume 10.4 fl (7.4-10.4); Platelet Count Result 157 k/mm3 (150-375); Red Cell Distribution Width 16.9 % (11.5-14.5); White Blood Count 6.3 K/mm3 (4.5-10.0)
[2021-11-13] MEDS: FOLIC ACID 1 MG TABLET PO (08:49)
[2021-11-13] MEDS: NICOTINE (*PBKC) 21 MG PATCH 1 PATCH TRANSDERM (08:49)
[2021-11-13] MEDS: THIAMINE HCL 100 MG TABLET PO (08:49)
[2021-11-13] MEDS: PANTOPRAZOLE 40 MG TABLET PO (08:49)
--- NOTE | 2021-11-13 12:25 | PM.DS ---
DS: Admitting Diagnosis Discharge Date 11/14/2021 Admitting Diagnosis Acute alcohol withdrawal DS: Discharge Diagnosis Discharge Diagnosis (1) Alcohol abuse with withdrawal: Code(s): F10.139 - Alcohol abuse with withdrawal, unspecified Status: Acute Assessment and Plan: Patient reports drinking a fifth of vodka or more daily for several years. Her last drink was 11/09/2021 Reports she was trying to manage withdrawal at home but could not tolerate due to excessive tremors She had improvement with scheduled Librium. CIWA scores improved and were 0 for 12 hours prior to discharge She will continue Librium taper on discharge. Educated extensively regarding alcohol avoidance while on this medication. She is motivated to stop drinking. She has already enrolled in an outpatient rehab program and has assistance of her PCP. Thiamine and folic acid daily (2) Epigastric pain: Code(s): R10.13 - Epigastric pain Status: Acute Assessment and Plan: Complains of mild epigastric discomfort CT a/p revealed subtle fat stranding surrounding pancreas which could possibly reflect early pancreatitis. She was able to tolerate diet. Lipase within normal limits. No further treatment required Symptoms may be related to gastritis in setting of excess alcohol use. Continue Protonix 40 mg daily. (3) Abnormal urinalysis: Code(s): R82.90 - Unspecified abnormal findings in urine Status: Acute Assessment and Plan: Urinalysis abnormal with 3+ leuk esterase and >75 WBC. Also with many squamous cells concerning for contamination Patient denied urinary symptoms Urine culture with growth of [phone] CFU Klebsiella pneumoniae Given low colony count, lack of symptoms, no clinical findings to suggest acute infection, no need for further treatment. (4) Transaminitis: Code(s): R74.01 - Elevation of levels of liver transaminase levels Status: Acute Assessment and Plan: LFTs markedly elevated secondary to acute alcohol abuse LFTs trending down Follow up with PCP for monitoring (5) HTN (hypertension): Code(s): I10 - Essential (primary) hypertension Status: Acute Assessment and Plan: Patient with history of hypertension not on any antihypertensives. Blood pressures elevated above target Likely worsened due to acute withdrawal and anxiety Blood pressure at time of discharge was 132/90 Follow up with PCP for BP monitoring (6) Tobacco abuse: Code(s): Z72.0 - Tobacco use Status: Chronic Assessment and Plan: Smokes 1 pack per day Smoking cessation education not provided as alcohol cessation is imperative at this time and should be focused on first (7) Abnormal CT of the abdomen: Code(s): R93.5 - Abnormal findings on diagnostic imaging of other abdominal regions, including retroperitoneum Status: Acute Assessment and Plan: CT abdomen/pelvis showed the following incidental findings: 5.6 cm dermoid cyst of the left adnexa. Will need HABILITATION ASSISTANT follow-up, consider outpatient pelvic ultrasound Subtle inflammation of the sigmoid colon concerning for diverticulitis. Patient is asymptomatic and no signs/symptoms to suggest acute infection. No further evaluation/treatment required (8) COVID-19 ruled out by laboratory testing: Code(s): Z20.822 - Contact with and (suspected) exposure to COVID-19 Status: Acute Assessment and Plan: Patient reports positive COVID test at home on 11/06/2021 Had been on Paxlovid antiviral per PCP COVID PCR at this facility negative on 11/12/21 Discontinued home antiviral medication Maintaining adequate oxygenation. Patient was asymptomatic. Isolation precautions discontinued DS: Summary Hospital Course Hospital Course: Date of admission: 11/10/2021 Date of discharge: 11/13/2021 Toya Valentin is a 31-year-old female with a history of alcohol abuse, tobacco a
[2021-11-13 12:27] VITALS: BP 132/90; PULSE 97
== END 2021-11-13 13:05 | disposition home or self-care (01) ==
LOC: ANHED 22:47 → ANH3MEDSUR 11-11 01:25
PROVIDERS: Emergency Medicine; Physician Assistant; Admitting Provider Internal Medicine; Emergency Provider Emergency Medicine; PCP Internal Medicine; Visit Provider Family Medicine
DX: F10.231 Alcohol dependence with withdrawal delirium (principal); R25.1 Tremor, unspecified; F17.210 Nicotine dependence, cigarettes, uncomplicated; I10 Essential (primary) hypertension; F12.90 Cannabis use, unspecified, uncomplicated; K21.9 Gastro-esophageal reflux disease without esophagitis; R10.13 Epigastric pain; Z20.822 Contact with and (suspected) exposure to COVID-19; R74.01 Elevation of levels of liver transaminase levels; R82.90 Unspecified abnormal findings in urine
CPT/HCPCS: 36415; 74176; 80053; 80307; 81001; 81025; 83690; 85025; 85027; 87077; 87086; 87186; 87426; 93005; 96361; 96365; 96366; 96367; 96372; 96375; 96376; 99285; A9270; C9803; G0378; J0696; J1885; J2060; J2405; J3411; J3475; J7030; J7121

== ENCOUNTER 2021-11-19 15:08 | Emergency (ER) | payer BC, SELFPAY ==
--- NOTE | ~2021-11-19 | XR_ITS ---
EXAM: XR shoulder LT min 2V, XR humerus LT HISTORY: fall, left shoulder pain COMPARISON: None available FINDINGS: Normal mineralization. Mildly comminuted minimally displaced left proximal humerus fractur e, likely involving the greater tuberosity. No lytic or blastic lesion. Joint spaces maintained. No e rosion or periosteal change. A paper clip projects over the mid chest, possibly posteriorly. Soft tis sues within normal limits. IMPRESSION: Mildly comminuted and mildly displaced left proximal humerus fracture, likely involving the greater t uberosity. A paperclip is seen in several images, presumably external and posterior. Reviewed, dictated and finalized at location K. IMPRESSION: Mildly comminuted and mildly displaced left proximal humerus fracture, likely i nvolving the greater tuberosity. A paperclip is seen in several images, presuma sajan external and posterior.
[2021-11-19 15:37] VITALS: BP 140/87; PULSE 88; RESP 16; TEMP 36.6; O2SAT 98
--- NOTE | 2021-11-19 16:02 | ED.UPPEXIN ---
HPI - Extremity Injury (Upper) General Chief Complaint: Extremity Injury, Upper Stated Complaint: L shoulder pain Time Seen by Provider: 11/19/21 15:42 History of Present Illness HPI narrative: 31-year-old female presents to the emergency room with complaints of left shoulder pain. Patient states last night she was drinking and fell, and is unable to recall the nature of her injury. Patient states shoulder pain is worse with movement. Related Data Home Medications Medication Instructions Recorded Confirmed potassium chloride 20 meq PO DAILY 11/10/21 11/11/21 Allergies Allergy/AdvReac Type Severity Reaction Status Date / Time morphine AdvReac Intermediate Nausea and Verified 11/11/21 01:46 Vomiting hydrocodone [From Vicodin] AdvReac Mild Nausea and Verified 11/11/21 01:46 Vomiting Review of Systems Review of Systems: CONSTITUTIONAL: Denies fever, chills, or sweats. EYES: Denies visual changes, redness, or discharge. ENT: Denies rhinorrhea, congestion, sore throat, or otalgia. CARDIOVASCULAR: Denies chest pain, palpitations, or edema. RESPIRATORY: Denies cough or dyspnea. GASTROINTESTINAL: Denies abdominal pain, nausea, vomiting, or diarrhea. GENITOURINARY: Denies dysuria or hematuria. SKIN: Denies rash or itching. MUSCULOSKELETAL: Reports left shoulder pain NEUROLOGIC: Denies headache, numbness, dizziness, or weakness. PSYCHIATRIC: Denies anxiety or depression. [facility] Past Medical History Medical History Abdominal pain Abnormal CT scan, sigmoid colon Alcoholism Anxiety Depression Gastroesophageal reflux disease HTN (hypertension) Mitral valve prolapse Overweight (BMI 25.0-29.9) Tobacco abuse Surgical History Surgical History H/O hernia repair 11/21/20 robotic assisted repair of incarcerated supraumbilical incisional hernias x 5 with 20 x 15 cm symbotex mesh in underlay position History of oophorectomy History of partial hysterectomy Family History Family History Sibling Chest pain Grandparent Cancer Mother Hyperthyroidism Hypertension Social History Social History Social History: the patient stated that she has been binge drinking for at least 2 weeks with vodka. She had gone through alcohol rehab the summer and does not want her family to know that she had a lapse. She cannot quantify how much she has been drinking the last 2 weeks. She said she had a miscarriage it had been very sad about and had been drinking heavily since then. She is and now has a fiancee. She has 1 child. She is a full code. She works at [employer] at this time. She smokes about a pack cigarettes a day for many years. Occasionally smokes marijuana. No other illicit drugs. She just moved in with her mother. Smoking packs per day: 1 Smoking cigarettes per day: 20.0 Years smoked: 16 Smoking pack-years: 16.00 Smoking status: Current every day smoker Tobacco type: cigarettes Alcohol intake: current Drinks per week: 7 Alcohol use details: HALF A FIFTH A DAY Substance use: current Substance use type: marijuana Other substance usage details: Fifth of vodka a day Last use: 11/06/20 Gender identity (if verbalized by the patient): Female Spiritual care concerns: No Exam Narrative: GENERAL: Well-appearing, well-nourished, and in no acute distress. HEAD: Normocephalic, atraumatic. EYES: PERRLA and EOMI. CHEST: Clear to auscultation. No respiratory distress. No wheezes rales or rhonchi HEART: Regular rate and rhythm. No murmur heard. Normal peripheral pulses. ABDOMEN: Soft, nontender, nondistended, normal active bowel sounds. EXTREMITIES: Left shoulder: Tenderness to the proximal humerus with soft tissue swelling. No ecchymosis noted. Limited range of
--- NOTE | 2021-11-19 17:02 | PC.NURSE ---
sling placed to left arm
[2021-11-19] MEDS: oxyCODONE/ACETAMINOPHEN (*CRX) 5-325 MG TABLET 1 TABLET PO (17:36)
== END 2021-11-19 17:46 | disposition home or self-care (01) ==
PROVIDERS: Emergency Provider Nurse Practitioner Family; PCP Internal Medicine
DX: S42.292A Other displaced fracture of upper end of left humerus, initial encounter for closed fracture (principal); K21.9 Gastro-esophageal reflux disease without esophagitis; I10 Essential (primary) hypertension; I34.1 Nonrheumatic mitral (valve) prolapse; F10.20 Alcohol dependence, uncomplicated; Y90.9 Presence of alcohol in blood, level not specified; E66.3 Overweight; Z68.29 Body mass index [BMI] 29.0-29.9, adult; F17.210 Nicotine dependence, cigarettes, uncomplicated; W19.XXXA Unspecified fall, initial encounter
CPT/HCPCS: 73030; 73060; 99284; A4565; A9270

== ENCOUNTER 2022-02-09 13:00 | Outpatient (CLI) | payer BC, SELFPAY ==
--- NOTE | ~2022-02-09 | XR_ITS ---
XR shoulder LT min 2V DATE: 02/09/2022 13:11 INDICATION: Left shoulder fracture follow-up TECHNIQUE: 3 views COMPARISON: 12/24/2021 left shoulder FINDINGS: There is organized callus and sclerosis at the transverse surgical neck fracture of the pro ximal left humerus consistent with healing, without significant change in position or alignment or si gnificant displacement regulation deformity. IMPRESSION: Advanced healing of minimally displaced or angulated surgical neck fracture of left humer us Reviewed, dictated and finalized at location A. IMPRESSION: Advanced healing of minimally displaced or angulated surgical neck fracture of left humerus
== END 2022-02-09 13:01 | disposition home or self-care (01) ==
LOC: ANHBWCIMG 13:03
PROVIDERS: PCP Internal Medicine; Visit Provider Orthopaedic Surgery
DX: M25.512 Pain in left shoulder (principal); S42.292D Other displaced fracture of upper end of left humerus, subsequent encounter for fracture with routine healing
CPT/HCPCS: 73030

== ENCOUNTER 2022-03-24 14:43 | Emergency (ER) | payer BC, SELFPAY ==
[2022-03-24 14:53] VITALS: BP 120/88; PULSE 106; RESP 20; TEMP 36.3; O2SAT 100
--- NOTE | 2022-03-24 15:35 | ED.NAVMDI ---
HPI - Nausea/Vomiting/Diarrhea General Chief complaint: Nausea/Vomiting/Diarrhea Stated complaint: diarrhea Time Seen by Provider: 03/24/22 15:20 Source: patient, RN notes reviewed and old records reviewed Mode of arrival: ambulatory Limitations: no limitations History of Present Illness HPI Narrative: 32-year-old female who presents to [facility] care with complaints of abdominal discomfort last evening and since this morning she has had 11 diarrhea stools. Patient denies any nausea or vomiting, denies any fevers, chills or sweats. Patient reposts that son has been ill with his ear hurting and feeling kind of queasy for a few days. Patient denies any urinary symptoms, no burning or pain with urination, denies any pain to back or any pain to right side of abdomen, some palpable tenderness black eft lower abdomen she rates as 2/10. Patient has not taken any otc medications for her symptoms. MD elicited complaint: diarrhea and abdominal pain (left lower) Pertinent past history: pacreatitis and other (colitis, diverticulitis) Onset (ago): day(s) (last night some abdominal discomfort today diarrhea) Description of diarrhea: lose (small brown loose stools) Related Data Allergies Allergy/AdvReac Type Severity Reaction Status Date / Time morphine AdvReac Intermediate Nausea and Verified 02/09/22 13:03 Vomiting hydrocodone [From Vicodin] AdvReac Mild Nausea and Verified 02/09/22 13:03 Vomiting Review of Systems Review of Systems: CONSTITUTIONAL: Denies fever, chills, or sweats. EYES: Denies visual changes, redness, or discharge. ENT: Denies rhinorrhea, congestion, sore throat, or otalgia. CARDIOVASCULAR: Denies chest pain, palpitations, or edema. RESPIRATORY: Denies cough or dyspnea. GASTROINTESTINAL: Positive for left lower abdominal pain, no nausea, vomiting, positive for diarrhea. GENITOURINARY: Denies dysuria or hematuria. SKIN: Denies rash or itching. MUSCULOSKELETAL: Denies back pain, joint pain, or myalgia. NEUROLOGIC: Denies headache, numbness, or weakness. PSYCHIATRIC: Positive for anxiety or depression. All systems reviewed & are unremarkable except as noted in HPI and below PMFSH Past Medical History Medical History Abdominal pain Abnormal CT scan, sigmoid colon Alcoholism Anxiety Arthritis Claustrophobia Complication of surgery Had Respiratory Failure per patient Depression Gastroesophageal reflux disease Hair loss History of dental problems HTN (hypertension) Mitral valve prolapse Overweight (BMI 25.0-29.9) Proximal humerus fracture Tobacco abuse Surgical History Surgical History H/O hernia repair 11/21/20 robotic assisted repair of incarcerated supraumbilical incisional hernias x 5 with 20 x 15 cm symbotex mesh in underlay position History of oophorectomy History of partial hysterectomy Family History Family History Sibling Chest pain Grandparent Cancer Mother Hyperthyroidism Hypertension Other Arthritis Cerebrovascular accident Ovarian cancer Social History Social History (Updated 03/27/22 @ 19:44 by Afia Wiggins NP) Social History: the patient stated that she has been binge drinking for at least 2 weeks with vodka. She had gone through alcohol rehab the summer and does not want her family to know that she had a lapse. She cannot quantify how much she has been drinking the last 2 weeks. She said she had a miscarriage it had been very sad about and had been drinking heavily since then. She is and now has a fiancee. She has 1 child. She is a full code. She works at [employer] at this time. She smokes about a pack cigarettes a day for many years. Occasionally smokes marijuana. No other illicit drugs. She just moved in with her mother. Smoking packs per day: 1 Smoking cigarettes per day: 20.0 Years smoked:
== END 2022-03-24 16:04 | disposition home or self-care (01) ==
PROVIDERS: Emergency Provider Registered Nurse; PCP Internal Medicine
DX: K52.9 Noninfective gastroenteritis and colitis, unspecified (principal); F17.210 Nicotine dependence, cigarettes, uncomplicated; K21.9 Gastro-esophageal reflux disease without esophagitis; I10 Essential (primary) hypertension; I34.1 Nonrheumatic mitral (valve) prolapse; F12.90 Cannabis use, unspecified, uncomplicated; F40.240 Claustrophobia
CPT/HCPCS: 99213; G0463

== ENCOUNTER 2022-03-31 09:43 | Inpatient (IN) | payer BC, SELFPAY ==
[2022-03-31] VITALS (28 sets, daily range): BP systolic 128–159; BP diastolic 74–107; PULSE 80–123; RESP 12–26; TEMP 36.1–37; O2SAT 96–100; BMI 33.1
--- NOTE | ~2022-03-31 | US_ITS ---
EXAMINATION: US pelvic complete w TV DATE: 03/31/2022 15:18 INDICATION: Ovarian cyst. Pelvic pain. TECHNIQUE: Multiple transabdominal and transvaginal sonographic images of the pelvis were obtained. COMPARISON: CT abdomen and pelvis 03/31/2022 FINDINGS: TRANSABDOMINAL ULTRASOUND: The uterus measures 8.7 x 4.6 x 5.0 cm. There is trace free fluid in the pelvis. TRANSVAGINAL ULTRASOUND: The endometrial complex measures 7 mm in thickness. The right ovary is absent. The left ovary measure s 7.5 x 4.4 x 5.9 cm. In the left ovary, there is a 2.9 cm hyperechoic mass correlating with a mass c ontaining fat by CT, consistent with a dermoid. There is a 4.0 cm cyst with low level echoes in left ovary. There is vascular flow in left ovary. IMPRESSION: 1. 2.9 cm dermoid left ovary. 2. 4.0 cm cyst in left ovary, which may be a hemorrhagic cyst. Abscess cannot be excluded. Reviewed, dictated and finalized at location A. IMPRESSION: 1. 2.9 cm dermoid left ovary. 2. 4.0 cm cyst in left ovary, which may be a hemorrhagic cyst. Abscess cannot b e excluded.
--- NOTE | ~2022-03-31 | CT_ITS ---
EXAMINATION: CT abdomen pelvis w con DATE: 03/31/2022 11:06 INDICATION: Upper abdominal pain. TECHNIQUE: Computed tomography (CT) of the abdomen and pelvis was performed with 100 mL Omnipaque 350 intravenous contrast. Automated exposure control and iterative reconstruction technique were employe d. The dose-length product was 1058.04 mGy-cm. COMPARISON: CT abdomen and pelvis 11/11/2021 FINDINGS: The visualized portions of the lung bases demonstrate mild atelectasis. No pleural effusion . The heart size is normal. No pericardial effusion. There is a small sliding hiatal hernia. The live r, gallbladder, spleen, and adrenal glands are normal. There is fat stranding around the pancreas, co nsistent with acute interstitial pancreatitis. There are 2 stones in right kidney measuring up to 3 m m. Left kidney is normal. There is a 3.0 cm mass in left ovary that contains mixed attenuation includ ing fat, consistent with a dermoid. There is a 4.9 x 3.0 cm cyst in left ovary. There are scattered d iverticula in the colon. There is wall thickening of the sigmoid colon. There are fistulas between th e sigmoid colon, left ovary, surface of the uterus, and wall of the vagina. The appendix is normal. T here are no pathologically enlarged lymph nodes. There is no free intraperitoneal fluid. There are ch ronic bilateral L5 pars defects. There is 4 mm anterolisthesis of L5 on S1. There is mild thoracolumb ar spondylosis. IMPRESSION: 1. Acute interstitial pancreatitis. 2. Chronic diverticulitis with fistulas to the left ovary, surface of the uterus, and wall of the vag radha. 3. 3.0 cm dermoid in left ovary. 4. 4.9 cm cyst in left ovary, which may be a follicular cyst or abscess. Reviewed, dictated and finalized at location A. IMPRESSION: 1. Acute interstitial pancreatitis. 2. Chronic diverticulitis with fistulas to the left ovary, surface of the uteru s, and wall of the vagina. 3. 3.0 cm dermoid in left ovary. 4. 4.9 cm cyst in left ovary, which may be a follicular cyst or abscess.
[2022-03-31 10:06] LABS: Appearance Urine Clear (Clear); Bilirubin Urine 1+ (Negative); Blood Urine 2+ (Negative); Glucose Urine UA Negative (Negative); Ketones Urine Trace mg/dL (Negative); Leukocyte Esterase Ur Negative LEU/UL (Negative); Nitrate Urine Negative (Negative); Protein Urine 2+ mg/dL (Negative); Specific Grav Ur >= 1.030 (1.001-1.035); pH Urine 5.5 (5.0-9.0)
[2022-03-31 10:07] LABS: Bacteria Urine Trace /hpf; Mucus Urine Few /lpf; RBC Urine 21-50 /hpf (0-2); Squamous Epithelial Cell Urine Few /hpf (Few)
[2022-03-31 10:08] LABS: Basophils Absolute Auto 0.1 K/mm3 (0.0-0.1); Basophils Percent Auto 0.7 % (0.2-1.2); Eosinophils Absolute Auto 0.2 K/mm3 (0-0.3); Eosinophils Percent Auto 1.7 % (0-4.4); Hematocrit 40.5 % (37.0-47.0); Hemoglobin 14.1 g/dL (12.0-15.0); Immature Granulocyte Absolute 0.06 K/mm3 (0.00-0.031); Immature Granulocyte Percent A 0.4 % (0-0.5); Lymphocytes Absolute Auto 3.32 K/mm3 (0.9-3.2); Lymphocytes Percent Auto 24.1 % (18.3-44.2); Mean Corpuscular HGB Conc 34.8 g/dl (32-36); Mean Corpuscular Hemoglobin 30.9 pg (26-34); Mean Corpuscular Volume 88.8 fl (80-100); Mean Platelet Volume 9.7 fl (7.4-10.4); Monocytes Percent Auto 7.3 % (2.6-8.5); Neutrophils Absolute Auto 9.1 K/mm3 (1.3-6.7); Neutrophils Percent Auto 65.8 % (45.5-73.1); Platelet Count Result 418 k/mm3 (150-375); Red Blood Count 4.56 M/mm3 (4.2-5.4); Red Cell Distribution Width 17.2 % (11.5-14.5); White Blood Count 13.8 K/mm3 (4.5-10.0)
--- NOTE | 2022-03-31 10:09 | ED.ABDPAIN ---
HPI - Abdominal Pain General Chief Complaint: Abdominal Pain Stated Complaint: abd pain Time Seen by Provider: 03/31/22 09:45 History of Present Illness HPI narrative: 32-year-old female presents to the emergency room for evaluation of alcohol detox and recent heavy alcohol use. Patient states over the course of the past month, she has been drinking close to 750 mL of vodka daily. States she is concerned that she may have a seizure due to her alcohol use. No history of alcohol related seizures. Patient is complaining of headache, body aches, abdominal cramping and anxiety. Denies any fevers. Patient was seen at urgent care 2 days ago for diarrhea, diagnosed with gastroenteritis. Related Data Allergies Allergy/AdvReac Type Severity Reaction Status Date / Time morphine AdvReac Intermediate Nausea and Verified 02/09/22 13:03 Vomiting hydrocodone [From Vicodin] AdvReac Mild Nausea and Verified 02/09/22 13:03 Vomiting Review of Systems Review of Systems: CONSTITUTIONAL: Denies fever, chills, or sweats. EYES: Denies visual changes, redness, or discharge. ENT: Denies rhinorrhea, congestion, sore throat, or otalgia. CARDIOVASCULAR: Denies chest pain, palpitations, or edema. RESPIRATORY: Denies cough or dyspnea. GASTROINTESTINAL: Reports abdominal pain, nausea, vomiting and diarrhea GENITOURINARY: Denies dysuria or hematuria. SKIN: Denies rash or itching. MUSCULOSKELETAL: Denies back pain, joint pain, or myalgia. NEUROLOGIC: Reports headache PSYCHIATRIC: Denies anxiety or depression. [facility] Past Medical History Medical History Abdominal pain Abnormal CT scan, sigmoid colon Alcoholism Anxiety Arthritis Claustrophobia Complication of surgery Had Respiratory Failure per patient Depression Gastroesophageal reflux disease Hair loss History of dental problems HTN (hypertension) Mitral valve prolapse Overweight (BMI 25.0-29.9) Proximal humerus fracture Tobacco abuse Surgical History Surgical History H/O hernia repair 11/21/20 robotic assisted repair of incarcerated supraumbilical incisional hernias x 5 with 20 x 15 cm symbotex mesh in underlay position History of oophorectomy History of partial hysterectomy Family History Family History Sibling Chest pain Grandparent Cancer Mother Hyperthyroidism Hypertension Other Arthritis Cerebrovascular accident Ovarian cancer Social History Social History Social History: the patient stated that she has been binge drinking for at least 2 weeks with vodka. She had gone through alcohol rehab the summer and does not want her family to know that she had a lapse. She cannot quantify how much she has been drinking the last 2 weeks. She said she had a miscarriage it had been very sad about and had been drinking heavily since then. She is and now has a fiancee. She has 1 child. She is a full code. She works at [employer] at this time. She smokes about a pack cigarettes a day for many years. Occasionally smokes marijuana. No other illicit drugs. She just moved in with her mother. Smoking packs per day: 1 Smoking cigarettes per day: 20.0 Years smoked: 16 Smoking pack-years: 16.00 Smoking status: Current every day smoker Tobacco type: cigarettes Alcohol intake: current Drinks per week: 7 Alcohol use details: admits to some alcohol use 03/24/2022 but denies daily use Substance use: current Substance use type: marijuana Other substance usage details: Fifth of vodka a day Last use: 11/06/20 Additional occupation/education comments: [employer] Gender identity (if verbalized by the patient): Female Spiritual care concerns: No Exam Narrative: GENERAL: Well-appearing, well-nourished, no physical limitations, and
[2022-03-31 10:11] LABS: Add Urine Microscopic? YES; Color Urine Dark Yellow (Yellow)
[2022-03-31 10:17] LABS: Alanine Aminotransferase 14 U/L (6-35); Albumin Level 4.3 g/dL (3.5-5.1); Alkaline Phosphatase 119 U/L (38-126); Anion Gap 12 mmol/L (8-16); Aspartate Amino Transferase 23 U/L (14-36); Bilirubin,Total 0.5 mg/dL (0.2-1.3); Blood Urea Nitrogen 8 mg/dL (7-17); Carbon Dioxide 20 mmol/L (22-30); Chloride 104 mmol/L (98-107); Estimated Glomerular Filt Rate > 60; Glucose 112 mg/dL (65-110); Lipase 657 U/L (23-300); Potassium 3.4 mmol/L (3.4-5.0); Sodium 136 mmol/L (137-145)
[2022-03-31 10:33] LABS: Ethanol < 10 mg/dL (<10)
[2022-03-31 11:03] LABS: Amphetamine Screen Urine Negative (Negative); Barbiturate Screen Urine Negative (Negative); Benzodiazepines Screen Urine Negative (Negative); Cannabinoid Screen Urine Positive (Negative); Cocaine Screen Urine Negative (Negative); Methadone Screen Urine Negative (Negative); Opiate Screen Urine Negative (Negative); Phencyclidine Screen Urine Negative (Negative)
[2022-03-31] MEDS: SODIUM CHLORIDE 0.9% IV 1,000 ML 999 ML IV CONT ×2 (11:11→12:42)
[2022-03-31] MEDS: ONDANSETRON INJ 4 MG/2 ML VIAL IV PUSH ×2 (11:11→22:11)
[2022-03-31] MEDS: chlordiazePOXIDE (*CRX) 25 MG CAPSULE PO ×2 (11:11→20:00)
[2022-03-31] MEDS: THIAMINE HCL 200 MG/2 ML VIAL 100 MG IV PUSH (11:12)
[2022-03-31] MEDS: HYDROmorphone HCL INJ (*CRX) 1 MG/ML SYR 0.5 MG IV PUSH ×4 (12:00→20:13)
[2022-03-31 12:34] LABS: Lactic Acid Reflex 0.7 mmol/L (0.7-2.0)
[2022-03-31] MEDS: SODIUM CHLORIDE 0.9% IV 1,000 ML 125 ML IV CONT (16:17)
--- NOTE | 2022-03-31 16:41 | PM.IMHP ---
H&P: HPI History of Present Illness Date/Time: 03/31/22 16:41 Chief Complaint: Abdominal pain Review of Systems Review of Systems: This is a 32-year-old female patient who has a history of alcoholism. She has also had history of previous pancreatitis. The patient stated over the course of the past month she has been drinking close to 750 mL of vodka daily. The patient is concerned that she may have a seizure due to her alcohol bingeing. She has had no previous history of any related seizures. The patient was complaining of having abdominal pain. Patient was seen in urgent care 2 days ago for diarrhea and she was diagnosed with gastroenteritis. Her abdominal pelvis CT was read as the following 1. Acute interstitial pancreatitis. 2. Chronic diverticulitis with fistulas to the left ovary, surface of the uterus, and wall of the vagina. 3. 3.0 cm dermoid in left ovary. 4. 4.9 cm cyst in left ovary, which may be a follicular cyst or abscess. The ER provider stated that he did call surgery here and was recommended that he call gynecology Oncology. The ER provider stated that he did call Gynecology Oncology and that this was probably an incidental finding and that the patient can follow up outpatient for the gynecological findings. The patient was given IV fluids, Librium, Zofran, Dilaudid and Ativan. The patient was started on Rocephin. Her white count was noted to be 13.8. Sodium 136. Lipase 657. Her toxicology screen was positive for cannabis. Ethyl alcohol was less than 10. The patient is being admitted to inpatient status on the date of service of 03/31/2022. All systems reviewed & are unremarkable except as noted in HPI and below Constitutional: Constitutional: Reports as per HPI and Reports no additional constitutional complaints Comments: See HPI Eyes: Eyes: Reports as per HPI and Reports no additional eye complaints ENT: Reports system reviewed and no additional complaints, except as documented and Reports Normal hearing present Cardiovascular: Cardiovascular: Reports no additional cardiovascular complaints Respiratory: Respiratory: Reports no additional respiratory complaints and Reports no additional respiratory complaints Gastrointestinal: Gastrointestinal: Reports as per HPI and Reports no additional gastrointestinal complaints Musculoskeletal: Musculoskeletal: Reports no additional musculoskeletal complaints Integumentary/Breasts: Skin/Breast: Reports system reviewed and no additional complaints, except as docu and Reports as per HPI Neurologic: Reports system reviewed and no additional complaints, except as documented, Reports as per HPI and Reports Normal hearing present Psychiatric: Psychiatric: Reports no additional psychiatric complaints and Reports as per HPI Endocrine: Endocrine: Reports no additional endocrine complaints Hematologic/Lymphatic: Hematologic/Lymphatic: Reports no additional hematologic/lymphatic complaints Allergic/Immunologic: Allergic/Immunologic: Reports no additional allergic/immunologic complaints [facility] Past Medical History Medical History (Updated 03/31/22 @ 21:11 by Reyna Young NP) Abdominal pain Abnormal CT scan, sigmoid colon Alcoholism Anxiety Arthritis Claustrophobia Complication of surgery Had Respiratory Failure per patient COVID-19 ruled out by laboratory testing Depression Gastroesophageal reflux disease Hair loss History of dental problems HTN (hypertension) Mitral valve prolapse Overweight (BMI 25.0-29.9) Proximal humerus fracture Tobacco abuse Surgical History Surgical History H/O hernia repair 11/21/20 robotic assisted repair of incarcerated supraumbilical incisional hernias x 5 with 20 x 15 cm symbotex mesh in underlay position History of oophorectomy History of partial hysterectomy Family History Family History Sibling Chest pain Art
--- NOTE | 2022-03-31 18:23 | ADMGEN ---
This patient, Audrey Valentin, was admitted to 3 [facility] Surg Room 314-01. Patient/family oriented to hospital policies and general routines including ID bracelet, bed and alarms, visiting hours, pain management, procedures, bathroom and other care routines, personal items, smoking policy, room service/diet, and visiting hours. Information on how to activate the Rapid Response Team has been discussed. Patient/Family are encouraged to report perceived risks to care and to ask questions if they do not understand what they are told or what they should do.
[2022-03-31] MEDS: DOXYCYCLINE 100 MG/NS 100 ML 100 MG/100 ML BAG IVPB (22:00)
[2022-03-31] MEDS: metroNIDAZOLE 500 MG/ISO 100ML 500 MG/100 ML BAG 100 MG IVPB (22:00)
[2022-03-31] MEDS: hydrALAZINE HCL 20 MG/ML VIAL 10 MG IV PUSH (22:26)
[2022-03-31] MEDS: HYDROmorphone HCL INJ (*CRX) 1 MG/ML SYR IV PUSH (23:53)
[2022-04-01] VITALS (8 sets, daily range): BP systolic 120–162; BP diastolic 75–102; PULSE 71–94; RESP 12–18; TEMP 35.9–36.7; O2SAT 95–100
[2022-04-01] MEDS: SODIUM CHLORIDE 0.9% IV 1,000 ML 125 ML IV CONT (00:22)
[2022-04-01] MEDS: HYDROmorphone HCL INJ (*CRX) 1 MG/ML SYR IV PUSH ×5 (04:42→21:47)
[2022-04-01] MEDS: chlordiazePOXIDE (*CRX) 25 MG CAPSULE PO ×4 (06:22→17:12)
[2022-04-01 06:41] LABS: Basophils Absolute Auto 0.1 K/mm3 (0.0-0.1); Basophils Percent Auto 0.7 % (0.2-1.2); Eosinophils Absolute Auto 0.2 K/mm3 (0-0.3); Eosinophils Percent Auto 2.6 % (0-4.4); Hemoglobin 11.5 g/dL (12.0-15.0); Immature Granulocyte Absolute 0.02 K/mm3 (0.00-0.031); Immature Granulocyte Percent A 0.3 % (0-0.5); Lymphocytes Absolute Auto 2.15 K/mm3 (0.9-3.2); Lymphocytes Percent Auto 31.1 % (18.3-44.2); Mean Corpuscular HGB Conc 32.9 g/dl (32-36); Mean Corpuscular Hemoglobin 30.7 pg (26-34); Mean Corpuscular Volume 93.6 fl (80-100); Mean Platelet Volume 9.9 fl (7.4-10.4); Monocytes Absolute Auto 0.5 K/mm3 (0.1-0.6); Monocytes Percent Auto 7.2 % (2.6-8.5); Neutrophils Percent Auto 58.1 % (45.5-73.1); Platelet Count Result 241 k/mm3 (150-375); Red Blood Count 3.74 M/mm3 (4.2-5.4); Red Cell Distribution Width 17.2 % (11.5-14.5); White Blood Count 6.9 K/mm3 (4.5-10.0)
[2022-04-01 07:06] LABS: Anion Gap 11 mmol/L (8-16); Blood Urea Nitrogen 6 mg/dL (7-17); Calcium 7.7 mg/dL (8.4-10.2); Carbon Dioxide 19 mmol/L (22-30); Chloride 104 mmol/L (98-107); Estimated CRCL calculation 167 ml/min; Estimated Glomerular Filt Rate > 60; Glucose 93 mg/dL (65-110); Lipase 228 U/L (23-300); Magnesium 1.6 mg/dL (1.6-2.3); Potassium 2.7 mmol/L (3.4-5.0); Sodium 134 mmol/L (137-145)
[2022-04-01 07:26] LABS: Lactic Acid Reflex < 0.5 mmol/L (0.7-2.0)
[2022-04-01] MEDS: POTASSIUM CHLORIDE 20 MEQ TABLET 40 MEQ PO (08:12)
[2022-04-01 08:13] LABS: Glucose Point of Care 92 mg/dl (65-105)
[2022-04-01] MEDS: MAGNESIUM SULF 2 GM/WATER 50ML 2 GM/50 ML BAG IVPB (08:13)
[2022-04-01] MEDS: THIAMINE HCL 100 MG TABLET PO (09:19)
[2022-04-01] MEDS: DOXYCYCLINE 100 MG/NS 100 ML 100 MG/100 ML BAG IVPB ×2 (09:19→20:31)
[2022-04-01] MEDS: NICOTINE (*PBKC) 21 MG PATCH 1 PATCH TRANSDERM (09:19)
[2022-04-01] MEDS: FOLIC ACID 1 MG TABLET PO (09:19)
[2022-04-01] MEDS: metroNIDAZOLE 500 MG/ISO 100ML 500 MG/100 ML BAG 100 MG IVPB ×2 (10:20→21:53)
[2022-04-01] MEDS: POTASSIUM CHLORIDE INJ 40 MEQ in SODIUM CHLORIDE 0.9% IV 500 ML 130 MEQ IVPB (11:24)
--- NOTE | 2022-04-01 12:05 | PM.IMPN ---
Progress Note: A&P Assessment and Plan (1) Acute alcoholic pancreatitis: Code(s): K85.20 - Alcohol induced acute pancreatitis without necrosis or infection Status: Acute Assessment and Plan: -the patient is on clear liquids at this time. -continue with analgesics -recheck lipase in the a.m. (2) Abnormal CT of the abdomen: Code(s): R93.5 - Abnormal findings on diagnostic imaging of other abdominal regions, including retroperitoneum Status: Acute Assessment and Plan: 1. Acute interstitial pancreatitis. 2. Chronic diverticulitis with fistulas to the left ovary, surface of the uterus, and wall of the vagina. 3. 3.0 cm dermoid in left ovary. 4. 4.9 cm cyst in left ovary, which may be a follicular cyst or abscess. Patient was started on antibiotics for TOA. According to the ER provider he has reached out to Gynecology Oncology as well is surgery and there is no need for consult at this time. The patient can follow-up with Gynecology outpatient. -continue with Rocephin, Flagyl, and doxycycline. -blood cultures are pending. -no cervical cultures were obtained as the patient is currently on her menses. 04/01/2022 interval history: patient with alcohol abuse history has been drinking 750ml of Vodka daily and her last drink was 2 days ago and upon arrival, her urine tox was positive for cannabinoids and he alcohol level was <10, with hx of withdrawal and she is high risk for DT patient is followed with CIWA protocol, librium 25mg PO q6,and Ativan 1mg PRN, Patient with c/o abdominal pain, ct of abdomen showed 1. Acute interstitial pancreatitis upon arrival her lipase levels were 657 this morning 228, 2. Chronic diverticulitis with fistulas to the left ovary, surface of the uterus, and wall of the vagina. on STONE POLISHER MACHINE recommended to follow up as an outpatient in the clinic., patient hypokalemia, most likely 2/2 alcohol abuse will supplement and monitor, (3) Alcohol abuse with withdrawal: Code(s): F10.139 - Alcohol abuse with withdrawal, unspecified Status: Acute Assessment and Plan: -folic acid p.o. -thiamin p.o. -p.r.n. Ativan -routine Librium -acute care physical therapist consult for a alcohol rehab (4) Depression: Code(s): F32.9 - Major depressive disorder, single episode, unspecified Status: Acute Assessment and Plan: -the patient may need to follow-up with outpatient counseling issues not currently on any medication (5) HTN (hypertension): Code(s): I10 - Essential (primary) hypertension Status: Acute Assessment and Plan: -prn hydralize with parameters -could be related to the alcholism -the patient stated that she does not typically take any medication for her blood pressure. Subjective Date/time seen: 04/01/22 12:05 HPI-This is a 32-year-old female patient who has a history of alcoholism.? She has also had history of previous pancreatitis.? The patient stated over the course of the past month she has been drinking close to 750 mL of vodka daily.? The patient is concerned that she may have a seizure due to her alcohol bingeing.? She has had no previous history of any related seizures.? The patient was complaining of having abdominal pain.? Patient was seen in urgent care 2 days ago for diarrhea and she was diagnosed with gastroenteritis.? Her abdominal pelvis CT was read as the following 1. Acute interstitial pancreatitis. 2. Chronic diverticulitis with fistulas to the left ovary, surface of the uterus, and wall of the vagina. 3. 3.0 cm dermoid in left ovary. 4. 4.9 cm cyst in left ovary, which may be a follicular cyst or abscess. The ER provider stated that he did call surgery here and was recommended that he call gynecology Oncology.? The ER provider stated that he did call Gynecology Oncology and that this was probably an incidental finding and that the patient can follow up outpatient for the gynecological findings.? The patient was given IV fluids, Librium, Zofran, Dil
[2022-04-01 12:19] LABS: Glucose Point of Care 112 mg/dl (65-105)
[2022-04-01 15:46] LABS: Anion Gap 10 mmol/L (8-16); Blood Urea Nitrogen 5 mg/dL (7-17); Calcium 8.6 mg/dL (8.4-10.2); Carbon Dioxide 21 mmol/L (22-30); Chloride 104 mmol/L (98-107); Estimated CRCL calculation 123 ml/min; Estimated Glomerular Filt Rate > 60; Glucose 95 mg/dL (65-110); Magnesium 2.2 mg/dL (1.6-2.3); Potassium 3.6 mmol/L (3.4-5.0); Sodium 135 mmol/L (137-145)
[2022-04-01] MEDS: ONDANSETRON INJ 4 MG/2 ML VIAL IV PUSH ×2 (15:56→20:48)
[2022-04-01] MEDS: SODIUM CHLORIDE 0.9% IV 1,000 ML 75 ML IV CONT (16:50)
[2022-04-01 17:05] LABS: Glucose Point of Care 109 mg/dl (65-105)
[2022-04-01] MEDS: LORazepam INJ (*CRX) 2 MG/ML VIAL 1 MG IV PUSH (20:21)
[2022-04-01 22:14] LABS: Glucose Point of Care 113 mg/dl (65-105)
[2022-04-02] VITALS (7 sets, daily range): BP systolic 105–165; BP diastolic 64–95; PULSE 72–90; RESP 14–18; TEMP 35.7–36.1; O2SAT 98–100
[2022-04-02] MEDS: chlordiazePOXIDE (*CRX) 25 MG CAPSULE PO ×5 (00:07→23:55)
[2022-04-02] MEDS: HYDROmorphone HCL INJ (*CRX) 1 MG/ML SYR IV PUSH ×5 (05:49→22:12)
[2022-04-02 06:32] LABS: Hematocrit 40.7 % (37.0-47.0); Hemoglobin 13.1 g/dL (12.0-15.0); Mean Corpuscular HGB Conc 32.2 g/dl (32-36); Mean Corpuscular Hemoglobin 30.4 pg (26-34); Mean Corpuscular Volume 94.4 fl (80-100); Mean Platelet Volume 10.1 fl (7.4-10.4); Platelet Count Result 235 k/mm3 (150-375); Red Blood Count 4.31 M/mm3 (4.2-5.4); Red Cell Distribution Width 18.2 % (11.5-14.5); White Blood Count 6.7 K/mm3 (4.5-10.0)
[2022-04-02 06:41] LABS: Alanine Aminotransferase 12 U/L (6-35); Albumin Level 3.5 g/dL (3.5-5.1); Alkaline Phosphatase 92 U/L (38-126); Anion Gap 8 mmol/L (8-16); Aspartate Amino Transferase 18 U/L (14-36); Bilirubin,Total 0.3 mg/dL (0.2-1.3); Blood Urea Nitrogen 6 mg/dL (7-17); Calcium 8.7 mg/dL (8.4-10.2); Carbon Dioxide 21 mmol/L (22-30); Chloride 105 mmol/L (98-107); Estimated CRCL calculation 142 ml/min; Estimated Glomerular Filt Rate > 60; Glucose 91 mg/dL (65-110); Magnesium 2.1 mg/dL (1.6-2.3); Potassium 3.2 mmol/L (3.4-5.0); Sodium 134 mmol/L (137-145)
[2022-04-02 07:34] LABS: Glucose Point of Care 99 mg/dl (65-105)
[2022-04-02] MEDS: THIAMINE HCL 100 MG TABLET PO (07:59)
[2022-04-02] MEDS: FOLIC ACID 1 MG TABLET PO (07:59)
[2022-04-02] MEDS: NICOTINE (*PBKC) 21 MG PATCH 1 PATCH TRANSDERM (07:59)
[2022-04-02] MEDS: DOXYCYCLINE 100 MG/NS 100 ML 100 MG/100 ML BAG IVPB ×2 (08:00→20:05)
[2022-04-02] MEDS: POTASSIUM CHLORIDE 20 MEQ TABLET 40 MEQ PO (08:40)
[2022-04-02] MEDS: LORazepam INJ (*CRX) 2 MG/ML VIAL 1 MG IV PUSH ×2 (08:41→20:06)
[2022-04-02] MEDS: MAGNESIUM OXIDE 400 MG TABLET PO (09:21)
[2022-04-02] MEDS: metroNIDAZOLE 500 MG/ISO 100ML 500 MG/100 ML BAG 100 MG IVPB ×2 (09:29→21:36)
--- NOTE | 2022-04-02 12:50 | PM.IMPN ---
Progress Note: A&P Assessment and Plan (1) Acute alcoholic pancreatitis: Code(s): K85.20 - Alcohol induced acute pancreatitis without necrosis or infection Status: Acute Assessment and Plan: -the patient is on clear liquids at this time. -continue with analgesics -recheck lipase in the a.m. (2) Abnormal CT of the abdomen: Code(s): R93.5 - Abnormal findings on diagnostic imaging of other abdominal regions, including retroperitoneum Status: Acute Assessment and Plan: 1. Acute interstitial pancreatitis. 2. Chronic diverticulitis with fistulas to the left ovary, surface of the uterus, and wall of the vagina. 3. 3.0 cm dermoid in left ovary. 4. 4.9 cm cyst in left ovary, which may be a follicular cyst or abscess. Patient was started on antibiotics for TOA. According to the ER provider he has reached out to Gynecology Oncology as well is surgery and there is no need for consult at this time. The patient can follow-up with Gynecology outpatient. -continue with Rocephin, Flagyl, and doxycycline. -blood cultures are pending. -no cervical cultures were obtained as the patient is currently on her menses. 04/02/2022 interval history: patient with alcohol abuse history has been drinking 750ml of Vodka daily and her last drink was 3 days ago and upon arrival, her urine tox was positive for cannabinoids and he alcohol level was <10, with hx of withdrawal and she is high risk for DT patient is followed with CIWA protocol, librium 25mg PO q6,and Ativan 1mg PRN, patient remains clinically stable, does show any sign of DT, will taper librium to q8 PRN and monitor, Patient with c/o abdominal pain, ct of abdomen showed 1. Acute interstitial pancreatitis upon arrival her lipase levels were 657 and trended down to 228, able to tolerate clear liquids with advance her as to full liquids and ADAT to low fat, 2. Chronic diverticulitis with fistulas to the left ovary, surface of the uterus, and wall of the vagina. on PROTECTIVE SIGNAL OPERATIONS SUPERVISOR recommended to follow up as an outpatient in the clinic., patient hypokalemia, most likely 2/2 alcohol abuse will supplement and monitor, (3) Alcohol abuse with withdrawal: Code(s): F10.139 - Alcohol abuse with withdrawal, unspecified Status: Acute Assessment and Plan: -folic acid p.o. -thiamin p.o. -p.r.n. Ativan -routine Librium -managed care specialist consult for a alcohol rehab (4) Depression: Code(s): F32.9 - Major depressive disorder, single episode, unspecified Status: Acute Assessment and Plan: -the patient may need to follow-up with outpatient counseling issues not currently on any medication (5) HTN (hypertension): Code(s): I10 - Essential (primary) hypertension Status: Acute Assessment and Plan: -prn hydralize with parameters -could be related to the alcholism -the patient stated that she does not typically take any medication for her blood pressure. Subjective Date/time seen: 04/02/22 12:50 04/02/2022 interval history: patient with alcohol abuse history has been drinking 750ml of Vodka daily and her last drink was 3 days ago and upon arrival, her urine tox was positive for cannabinoids and he alcohol level was <10, with hx of withdrawal and she is high risk for DT patient is followed with CIWA protocol, librium 25mg PO q6,and Ativan 1mg PRN, patient remains clinically stable, does show any sign of DT, will taper librium to q8 PRN and monitor, Patient with c/o abdominal pain, ct of abdomen showed 1. Acute interstitial pancreatitis upon arrival her lipase levels were 657 and trended down to 228, able to tolerate clear liquids with advance her as to full liquids and ADAT to low fat, 2. Chronic diverticulitis with fistulas to the left ovary, surface of the uterus, and wall of the vagina. on PROTECTIVE SIGNAL OPERATIONS SUPERVISOR recommended to follow up as an outpatient in the clinic., patient hypokalemia, most likely 2/2 alcohol abuse will supplement and monitor, Review of Systems Revi
[2022-04-02] MEDS: hydrALAZINE HCL 20 MG/ML VIAL 10 MG IV PUSH (15:57)
[2022-04-02] MEDS: ONDANSETRON INJ 4 MG/2 ML VIAL IV PUSH ×2 (18:00→22:13)
[2022-04-03] VITALS (8 sets, daily range): BP systolic 107–141; BP diastolic 68–100; PULSE 74–93; RESP 14–20; TEMP 36–36.9; O2SAT 97–100
[2022-04-03] MEDS: chlordiazePOXIDE (*CRX) 25 MG CAPSULE PO (05:29)
[2022-04-03] MEDS: HYDROmorphone HCL INJ (*CRX) 1 MG/ML SYR IV PUSH (05:29)
[2022-04-03] MEDS: hydrALAZINE HCL 20 MG/ML VIAL 10 MG IV PUSH (06:18)
--- NOTE | 2022-04-03 06:37 | PC.NURSE ---
Patient's BP 123/100, gave Dilaudid and Librium and reassessed BP again 30 mins after the pain medication. Her manual pressure was found to be 145/105. Gave PRN IV hydralazine. Will reassess in 30 minutes.
[2022-04-03 07:30] LABS: Hematocrit 34.3 % (37.0-47.0); Hemoglobin 11.2 g/dL (12.0-15.0); Mean Corpuscular HGB Conc 32.7 g/dl (32-36); Mean Corpuscular Hemoglobin 31.3 pg (26-34); Mean Corpuscular Volume 95.8 fl (80-100); Mean Platelet Volume 10.1 fl (7.4-10.4); Platelet Count Result 200 k/mm3 (150-375); Red Blood Count 3.58 M/mm3 (4.2-5.4); Red Cell Distribution Width 18.6 % (11.5-14.5)
[2022-04-03 07:46] LABS: Alanine Aminotransferase 10 U/L (6-35); Alkaline Phosphatase 71 U/L (38-126); Anion Gap 9 mmol/L (8-16); Aspartate Amino Transferase 18 U/L (14-36); Bilirubin,Total 0.1 mg/dL (0.2-1.3); Blood Urea Nitrogen 8 mg/dL (7-17); Calcium 8.1 mg/dL (8.4-10.2); Carbon Dioxide 21 mmol/L (22-30); Chloride 107 mmol/L (98-107); Estimated CRCL calculation 142 ml/min; Estimated Glomerular Filt Rate > 60; Glucose 91 mg/dL (65-110); Magnesium 1.7 mg/dL (1.6-2.3); Potassium 3.3 mmol/L (3.4-5.0); Sodium 137 mmol/L (137-145)
[2022-04-03] MEDS: DOXYCYCLINE 100 MG/NS 100 ML 100 MG/100 ML BAG IVPB (08:19)
[2022-04-03] MEDS: FOLIC ACID 1 MG TABLET PO (08:19)
[2022-04-03] MEDS: MAGNESIUM OXIDE 400 MG TABLET PO (08:19)
[2022-04-03] MEDS: THIAMINE HCL 100 MG TABLET PO (08:19)
[2022-04-03] MEDS: NICOTINE (*PBKC) 21 MG PATCH 1 PATCH TRANSDERM (08:19)
[2022-04-03] MEDS: POTASSIUM CHLORIDE 20 MEQ TABLET 40 MEQ PO (10:07)
[2022-04-03] MEDS: metroNIDAZOLE 500 MG/ISO 100ML 500 MG/100 ML BAG 100 MG IVPB (10:10)
[2022-04-03] MEDS: HYDROcodone/acetaminophen (*CRX) 5-325 MG TABLET 1 TAB PO ×3 (10:11→20:21)
--- NOTE | 2022-04-03 13:32 | PM.IMPN ---
Progress Note: A&P Assessment and Plan (1) Acute alcoholic pancreatitis: Code(s): K85.20 - Alcohol induced acute pancreatitis without necrosis or infection Status: Acute Assessment and Plan: -the patient is on clear liquids at this time. -continue with analgesics -recheck lipase in the a.m. (2) Abnormal CT of the abdomen: Code(s): R93.5 - Abnormal findings on diagnostic imaging of other abdominal regions, including retroperitoneum Status: Acute Assessment and Plan: 1. Acute interstitial pancreatitis. 2. Chronic diverticulitis with fistulas to the left ovary, surface of the uterus, and wall of the vagina. 3. 3.0 cm dermoid in left ovary. 4. 4.9 cm cyst in left ovary, which may be a follicular cyst or abscess. Patient was started on antibiotics for TOA. According to the ER provider he has reached out to Gynecology Oncology as well is surgery and there is no need for consult at this time. The patient can follow-up with Gynecology outpatient. -continue with Rocephin, Flagyl, and doxycycline. -blood cultures are pending. -no cervical cultures were obtained as the patient is currently on her menses. 04/03/2022 interval history: patient with alcohol abuse history, has been drinking 750ml of Vodka daily and her last drink was 4 days ago and upon arrival, her urine tox was positive for cannabinoids and he alcohol level was <10, with hx of withdrawal and she is high risk for DT patient is followed with CIWA protocol, librium 25mg PO q6,and Ativan 1mg PRN, however last night patient was agitated and was given Ativan x1, today patient remains clinically stable, does show any sign of DT, will taper librium to q8 PRN and monitor, Patient with c/o abdominal pain, ct of abdomen showed 1. Acute interstitial pancreatitis upon arrival her lipase levels were 657 and trended down to 228, able to tolerate clear liquids with advance her as to full liquids and ADAT to low fat, 2. Chronic diverticulitis with fistulas to the left ovary, surface of the uterus, and wall of the vagina. 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 -thiamin p.o. -p.r.n. Ativan -routine Librium -auto care center manager consult for a alcohol rehab (4) Depression: Code(s): F32.9 - Major depressive disorder, single episode, unspecified Status: Acute Assessment and Plan: -the patient may need to follow-up with outpatient counseling issues not currently on any medication (5) HTN (hypertension): Code(s): I10 - Essential (primary) hypertension Status: Acute Assessment and Plan: -prn hydralize with parameters -could be related to the alcholism -the patient stated that she does not typically take any medication for her blood pressure. Subjective Date/time seen: 04/03/22 13:32 04/03/2022 interval history: patient with alcohol abuse history, has been drinking 750ml of Vodka daily and her last drink was 4 days ago and upon arrival, her urine tox was positive for cannabinoids and he alcohol level was <10, with hx of withdrawal and she is high risk for DT patient is followed with CIWA protocol, librium 25mg PO q6,and Ativan 1mg PRN, however last night patient was agitated and was given Ativan x1, today patient remains clinically stable, does show any sign of DT, will taper librium to q8 PRN and monitor, Patient with c/o abdominal pain, ct of abdomen showed 1. Acute interstitial pancreatitis upon arrival her lipase levels were 657 and trended down to 228, able to tolerate clear liquids with advance her as to full liquids and ADAT to low fat, 2. Chronic diverticulitis with fistulas to the left ovary, surface of the uterus, and wall of the vagina. will consult urogynecology physician as patient does
[2022-04-03 14:18] LABS: EDCOVIDSCREEN Negative (Negative)
[2022-04-03] MEDS: metroNIDAZOLE 250 MG TABLET 500 MG PO ×2 (16:38→20:25)
[2022-04-03] MEDS: DOXYCYCLINE HYCLATE 100 MG TABLET PO (20:25)
[2022-04-03] MEDS: LORazepam INJ (*CRX) 2 MG/ML VIAL 1 MG IV PUSH (23:43)
[2022-04-04 03:59] VITALS: BP 118/73; PULSE 75; RESP 18; TEMP 36.8; O2SAT 98
[2022-04-04] MEDS: metroNIDAZOLE 250 MG TABLET 500 MG PO (05:08)
--- NOTE | 2022-04-04 06:21 | PM.GYNPNOP ---
PSYCHOLOGICAL ASSISTANT - A/P Assessment and plan (1) Abnormal CT of the abdomen: Code(s): R93.5 - Abnormal findings on diagnostic imaging of other abdominal regions, including retroperitoneum Status: Acute Assessment and Plan: Refer to [facility] obstetrics/gynecology nurse-oncology as outpatient due to complicated bowel involvement. Patient to call our office next week to coordinate referral as it is the weekend and cannot arrange today. Time Spent With Patient Time: Total time spent is greater than 50% in coordination of care (as documented) at patient's floor/unit and/or counseling patient: Time with patient: less than 15 minutes PSYCHOLOGICAL ASSISTANT- PN:Subj Post-Op Subjective Date/time seen: 04/04/22 06:21 Interval history: Chart and history reviewed. Consulted for abnormal CT findings of chronic fistulas, small teratoma, and hemorrhagic cyst of ovary. Patient states she is feeling much better than on admission. Patient states in 2019 she had a fallopian tube removed due to bowel infecting her tube. She has not had follow up obstetrics/gynecology nurse visit since that time. 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 I doubt there is an acute TOA as the patient is afebrile with limited pelvic pain. Exam Const: General: alert Nutritional Appearance: obese Resp: Effort & Inspection: normal respiratory effort GI: Inspection: obesity GI Palp: Yes abdominal tenderness (mild) and Yes Soft to palpation PSYCHOLOGICAL ASSISTANT - PN: Obj Data Vital Signs Vital Signs: Vital Signs - 24 hr 04/03/22 08:00 04/03/22 08:00 04/03/22 09:42 Temperature 96.8 F L Pulse Rate 75 Respiratory Rate 16 Blood Pressure 109/68 Pulse Oximetry 100 99 Oxygen Delivery Room Air 04/03/22 12:00 04/03/22 16:00 04/03/22 20:00 Temperature 96.9 F L 97 F L 98.4 F Pulse Rate 93 86 92 Respiratory Rate 14 20 18 Blood Pressure 132/94 H 134/83 141/84 H Pulse Oximetry 100 98 100 Oxygen Delivery 04/03/22 20:45 04/03/22 23:52 04/04/22 03:59 Temperature 98.1 F 98.2 F Pulse Rate 77 75 Respiratory Rate 16 18 Blood Pressure 127/81 118/73 Pulse Oximetry 97 98 Oxygen Delivery Room Air Intake/Output Intake/Output: Intake & Output 04/01/22 04/02/22 04/03/22 04/04/22 23:59 23:59 23:59 23:59 Intake Total 5510 1160 1570 Output Total 400 Balance 5510 760 1570 Meds/Results Medications: Active Medications Generic Name Dose Route Start Last Admin Trade Name Freq PRN Reason Stop Dose Admin Hydrocodone Bitart/Acetaminophen 1 tab 04/03/22 09:44 04/03/22 20:21 Hydrocodone/Acetaminophen (*Crx) 5-325 Mg Tablet PO 1 tab Q4H PRN Administration pain rated 7-10 Chlordiazepoxide HCl 25 mg 04/03/22 09:46 Chlordiazepoxide (*Crx) 25 Mg Capsule PO Q6HR PRN Alcohol Withdrawal Doxycycline Hyclate 100 mg 04/03/22 21:00 04/03/22 20:25 Doxycycline Hyclate 100 Mg Tablet PO 100 mg Q12HR RON Administration Folic Acid 1 mg 04/01/22 09:00 04/03/22 08:19 Folic Acid 1 Mg Tablet PO 1 mg DAILY RON Administration Hydralazine HCl 10 mg 03/31/22 21:18 04/03/22 06:18 Hydralazine Hcl 20 Mg/Ml Vial IV PUSH 10 mg Q8H PRN Administration Blood Pressure - High Ceftriaxone Sodium/Dextrose 1 gm in 50 mls @ 100 mls/hr 04/01/22 12:00 04/03/22 12:00 Rocephin 1 Gm/D5w 50 Ml IVPB Infused Q24H RON Infusion Lorazepam 1 mg 03/31/22 19:33 04/03/22 23:43 Lorazepam Inj (*Crx) 2 Mg/Ml Vial IV PUSH 1 mg Q6H PRN Administration Anxiety Magnesium Oxide 400 mg 04/04/22 12:00 Magnesium Oxide 400 Mg Tablet PO Q24H RON Metronidazole 500 mg 04/03/22 14:00 04/04/22 05:08 Metronidazole 250 Mg Tablet PO 500 mg Q8HR RON Administration Nicotine 1 patch 04/01/22 09:00 04/03/22 08:19 Nicotine (*Pbkc) 21 Mg Patch TRANSDERM 1 patch QAM RON Administration
[2022-04-04 06:54] LABS: Hematocrit 33.7 % (37.0-47.0); Hemoglobin 10.9 g/dL (12.0-15.0); Mean Corpuscular HGB Conc 32.3 g/dl (32-36); Mean Corpuscular Hemoglobin 30.8 pg (26-34); Mean Corpuscular Volume 95.2 fl (80-100); Mean Platelet Volume 10.7 fl (7.4-10.4); Platelet Count Result 216 k/mm3 (150-375); Red Blood Count 3.54 M/mm3 (4.2-5.4); Red Cell Distribution Width 18.9 % (11.5-14.5); White Blood Count 6.1 K/mm3 (4.5-10.0)
[2022-04-04 07:02] LABS: Alanine Aminotransferase 12 U/L (6-35); Alkaline Phosphatase 70 U/L (38-126); Anion Gap 10 mmol/L (8-16); Aspartate Amino Transferase 21 U/L (14-36); Bilirubin,Total 0.1 mg/dL (0.2-1.3); Blood Urea Nitrogen 9 mg/dL (7-17); Calcium 8.2 mg/dL (8.4-10.2); Carbon Dioxide 21 mmol/L (22-30); Chloride 107 mmol/L (98-107); Estimated CRCL calculation 142 ml/min; Estimated Glomerular Filt Rate > 60; Glucose 102 mg/dL (65-110); Magnesium 1.6 mg/dL (1.6-2.3); Potassium 3.2 mmol/L (3.4-5.0); Sodium 138 mmol/L (137-145)
[2022-04-04 08:00] VITALS: BP 130/80; PULSE 89; RESP 20; TEMP 35.6; O2SAT 100
[2022-04-04] MEDS: THIAMINE HCL 100 MG TABLET PO (08:13)
[2022-04-04] MEDS: DOXYCYCLINE HYCLATE 100 MG TABLET PO (08:13)
[2022-04-04] MEDS: FOLIC ACID 1 MG TABLET PO (08:13)
[2022-04-04] MEDS: POTASSIUM CHLORIDE 20 MEQ TABLET 40 MEQ PO (08:14)
[2022-04-04] MEDS: NICOTINE (*PBKC) 21 MG PATCH 1 PATCH TRANSDERM (08:14)
--- NOTE | 2022-04-04 08:57 | PM.DS ---
DS: Admitting Diagnosis Discharge Date 04/04/2022 Admitting Diagnosis abdominal pain DS: Discharge Diagnosis Discharge Diagnosis (1) Acute alcoholic pancreatitis: Code(s): K85.20 - Alcohol induced acute pancreatitis without necrosis or infection Status: Acute Assessment and Plan: -the patient is on clear liquids at this time. -continue with analgesics -recheck lipase in the a.m. (2) Abnormal CT of the abdomen: Code(s): R93.5 - Abnormal findings on diagnostic imaging of other abdominal regions, including retroperitoneum Status: Acute Assessment and Plan: 1. Acute interstitial pancreatitis. 2. Chronic diverticulitis with fistulas to the left ovary, surface of the uterus, and wall of the vagina. 3. 3.0 cm dermoid in left ovary. 4. 4.9 cm cyst in left ovary, which may be a follicular cyst or abscess. Patient was started on antibiotics for TOA. According to the ER provider he has reached out to Gynecology Oncology as well is surgery and there is no need for consult at this time. The patient can follow-up with Gynecology outpatient. -continue with Rocephin, Flagyl, and doxycycline. -blood cultures are pending. -no cervical cultures were obtained as the patient is currently on her menses. 04/03/2022 interval history: patient with alcohol abuse history, has been drinking 750ml of Vodka daily and her last drink was 4 days ago and upon arrival, her urine tox was positive for cannabinoids and he alcohol level was <10, with hx of withdrawal and she is high risk for DT patient is followed with CIWA protocol, librium 25mg PO q6,and Ativan 1mg PRN, however last night patient was agitated and was given Ativan x1, today patient remains clinically stable, does show any sign of DT, will taper librium to q8 PRN and monitor, Patient with c/o abdominal pain, ct of abdomen showed 1. Acute interstitial pancreatitis upon arrival her lipase levels were 657 and trended down to 228, able to tolerate clear liquids with advance her as to full liquids and ADAT to low fat, 2. Chronic diverticulitis with fistulas to the left ovary, surface of the uterus, and wall of the vagina. 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 -thiamin p.o. -p.r.n. Ativan -routine Librium -care transitions nurse consult for a alcohol rehab (4) Depression: Code(s): F32.9 - Major depressive disorder, single episode, unspecified Status: Acute Assessment and Plan: -the patient may need to follow-up with outpatient counseling issues not currently on any medication (5) HTN (hypertension): Code(s): I10 - Essential (primary) hypertension Status: Acute Assessment and Plan: -prn hydralize with parameters -could be related to the alcholism -the patient stated that she does not typically take any medication for her blood pressure. DS: Summary Hospital Course Reason for hospitalization: This is a 32-year-old female patient who has a history of alcoholism.? She has also had history of previous pancreatitis.? The patient stated over the course of the past month she has been drinking close to 750 mL of vodka daily.? The patient is concerned that she may have a seizure due to her alcohol bingeing.? She has had no previous history of any related seizures.? The patient was complaining of having abdominal pain.? Patient was seen in urgent care 2 days ago for diarrhea and she was diagnosed with gastroenteritis.? Her abdominal pelvis CT was read as the following 1. Acute interstitial pancreatitis. 2. Chronic diverticulitis with fistulas to the left ovary, surface of the uterus, and wall of the vagina. 3. 3.0 cm dermoid in left ovary. 4. 4.9 cm cyst in left ovary, which may be a foll
== END 2022-04-04 10:15 | disposition home or self-care (01) | DRG 439 ==
LOC: ANHED 15:54 → ANH3MEDSUR 16:59
PROVIDERS: Emergency Medicine; Nurse Practitioner; Admitting Provider Chiropractor; Emergency Provider Nurse Practitioner Family; PCP Internal Medicine; Visit Provider Family Medicine
DX: K85.20 Alcohol induced acute pancreatitis without necrosis or infection (principal); F10.139 Alcohol abuse with withdrawal, unspecified; K57.92 Diverticulitis of intestine, part unspecified, without perforation or abscess without bleeding; N82.8 Other female genital tract fistulae; N83.202 Unspecified ovarian cyst, left side; Y90.0 Blood alcohol level of less than 20 mg/100 ml; Z20.822 Contact with and (suspected) exposure to COVID-19; F17.210 Nicotine dependence, cigarettes, uncomplicated; F12.90 Cannabis use, unspecified, uncomplicated; F32.A Depression, unspecified; F40.240 Claustrophobia; F41.9 Anxiety disorder, unspecified; I10 Essential (primary) hypertension; I34.1 Nonrheumatic mitral (valve) prolapse; K21.9 Gastro-esophageal reflux disease without esophagitis; M19.90 Unspecified osteoarthritis, unspecified site; R93.5 Abnormal findings on diagnostic imaging of other abdominal regions, including retroperitoneum; Z90.79 Acquired absence of other genital organ(s); Z90.711 Acquired absence of uterus with remaining cervical stump; E87.6 Hypokalemia
CPT/HCPCS: 36415; 74177; 76830; 76856; 80048; 80053; 80307; 81001; 81025; 82948; 83605; 83690; 83735; 85025; 85027; 87040; 87077; 87086; 87088; 87186; 87426; 96361; 96365; 96375; 99285; A9270; C9803; J0360; J0696; J1170; J2060; J2405; J3411; J3475; J3480; J7030; J7040; Q9967

== ENCOUNTER 2022-09-17 10:38 | Outpatient (CLI) | payer OTHER, MEDICAID, SELFPAY ==
[2022-09-17 10:51] LABS: Basophils Absolute Auto 0.08 K/mm3 (0.00-0.10); Basophils Percent Auto 1.6 % (0.0-1.0); Eosinophils Absolute Auto 0.09 K/mm3 (0.02-0.50); Eosinophils Percent Auto 1.8 % (1.0-6.0); Hematocrit 40.4 % (35.0-49.0); Hemoglobin 13.3 g/dL (12.0-15.0); Immature Granulocyte Absolute 0.01 K/mm3 (0.00-0.00); Immature Granulocyte Percent A 0.2 % (0.0-0.0); Lymphocytes Absolute Auto 1.73 K/mm3 (1.10-4.50); Lymphocytes Percent Auto 34.1 % (18.0-42.0); Mean Corpuscular HGB Conc 32.9 g/dL (32.0-36.0); Mean Corpuscular Hemoglobin 31.5 pg (27.0-31.0); Mean Corpuscular Volume 95.7 fL (78.0-102.0); Mean Platelet Volume 9.5 fl (9.2-11.8); Monocytes Absolute Auto 0.73 K/mm3 (0.10-0.90); Monocytes Percent Auto 14.4 % (2.0-11.0); Neutrophils Absolute Auto 2.4 K/mm3 (1.7-7.2); Neutrophils Percent Auto 47.9 % (50.0-70.0); Platelet Count Result 256 K/mm3 (150-420); Red Blood Count 4.22 M/mm3 (4.20-5.40); Red Cell Distribution Width 21.3 % (11.6-14.4); White Blood Count 5.1 K/mm3 (4.8-10.8)
[2022-09-17 12:05] LABS: Alanine Aminotransferase 58 U/L (14-59); Albumin Level 3.2 g/dL (3.4-5.0); Alkaline Phosphatase 147 U/L (46-116); Anion Gap 13 mmol/L (8-16); Aspartate Amino Transferase 124 U/L (15-37); Bilirubin,Total 0.7 mg/dL (0.00-1.00); Blood Urea Nitrogen 5 mg/dL (7-18); Calcium 8.5 mg/dL (8.5-10.1); Carbon Dioxide 27 mmol/L (21-32); Chloride 101 mmol/L (98-108); Estimated Glomerular Filt Rate > 60; Glucose 90 mg/dL (70-99); Magnesium 1.8 mg/dL (1.8-2.4); NT Pro B Type Natriuretic Pept 12 pg/mL (0-125); Osmolality Calculated 289 mOsm/kg (285-295); Phosphorus 4.5 mg/dL (2.6-4.7); Potassium 4.6 mmol/L (3.5-5.1); Sodium 141 mmol/L (136-145); Total Protein 7.6 g/dL (6.4-8.2)
== END 2022-09-17 10:39 | disposition home or self-care (01) ==
LOC: CHSLAB 10:40
PROVIDERS: PCP Internal Medicine; Visit Provider Internal Medicine
DX: E87.6 Hypokalemia (principal); F10.20 Alcohol dependence, uncomplicated; I42.9 Cardiomyopathy, unspecified
CPT/HCPCS: 36415; 80053; 83735; 83880; 84100; 85025

== ENCOUNTER 2025-06-07 15:25 | Emergency (ER) | payer OTHER, SELFPAY ==
[2025-06-07 15:42] VITALS: BP 148/88; PULSE 86; RESP 18; TEMP 36.8; O2SAT 100
--- NOTE | 2025-06-07 16:08 | ED.NAVMDI ---
HPI - Nausea/Vomiting/Diarrhea General Chief complaint: Nausea/Vomiting/Diarrhea Stated complaint: nausea/diarrhea Time Seen by Provider: 06/07/25 16:00 Source: patient, RN notes reviewed and old records reviewed Mode of arrival: ambulatory Limitations: no limitations History of Present Illness HPI Narrative: 35 year old female presents to [facility] care with complaints of nausea vomiting and diarrhea that started yesterday and she had to leave work early yesterday due to illness. Patient reports that she had her last episode of vomiting at 0700 today and has had 6 loose stools today. Patient reports no acute abdominal pain, states a little crampy with diarrhea. Patient denies any known fevers chills or body aches.She has been taking pepto for her diarrhea. patient reports that she has been sipping on liquids today and has kept them down without further nausea or vomiting. Delia has history of Alcoholism states that she is 300 days sober. MD elicited complaint: vomiting, diarrhea and other (crampy with diarrhea) Pertinent past history: pacreatitis and other (colitis, diverticulitis) Onset (ago): day(s) (last night some abdominal discomfort today diarrhea) Description of diarrhea: lose (small brown loose stools) Treatment prior to arrival: other (Pepto Bismol) Related Data Home Medications ?Medication ?Instructions ?Recorded ?Confirmed ?Last Taken ?Type omeprazole 20 mg capsule,delayed 20 mg PO DAILY 04/02/22 04/02/22 03/30/22 History release Allergies Allergy/AdvReac Type Severity Reaction Status Date / Time morphine AdvReac Intermediate Nausea and Verified 06/07/25 15:41 Vomiting hydrocodone (From Vicodin) AdvReac Mild Nausea and Verified 06/07/25 15:41 Vomiting Review of Systems Review of Systems: CONSTITUTIONAL: Denies fever, chills, or sweats. EYES: Denies visual changes, redness, or discharge. ENT: Denies rhinorrhea, congestion, sore throat, or otalgia. CARDIOVASCULAR: Denies chest pain, palpitations, or edema. RESPIRATORY: Denies cough or dyspnea. GASTROINTESTINAL: Reports no abdominal pain, reports vomiting and diarrhea starting yesterday at work with last emesis at 0700 with 6 diarrhea stools today, reports a little crampy with diarrhea but no pain. GENITOURINARY: Denies dysuria or hematuria. SKIN: Denies rash or itching. MUSCULOSKELETAL: Denies acute back pain, joint pain, or myalgia. NEUROLOGIC: Denies headache, numbness, or weakness. PSYCHIATRIC: Positive for anxiety or depression. All systems reviewed & are unremarkable except as noted in HPI and below PMFSH Past Medical History Medical History (Updated 06/08/25 @ 00:01 by Hai Gallegos) Arthritis Hair loss History of dental problems Claustrophobia Complication of surgery Had Respiratory Failure per patient Proximal humerus fracture COVID-19 ruled out by laboratory testing Mitral valve prolapse Overweight (BMI 25.0-29.9) Depression Gastroesophageal reflux disease HTN (hypertension) Abdominal pain Abnormal CT scan, sigmoid colon Tobacco abuse Alcoholism Anxiety Surgical History Surgical History H/O hernia repair 11/21/20 robotic assisted repair of incarcerated supraumbilical incisional hernias x 5 with 20 x 15 cm symbotex mesh in underlay position History of oophorectomy History of partial hysterectomy Family History Family History Sibling Chest pain Arthritis Grandparent Cancer Cerebrovascular accident Mother Hyperthyroidism Hypertension Arthritis Ovarian cancer Other Cerebrovascular accident Father Arthritis Social History Social History (Updated 06/08/25 @ 15:24 by Afia Wiggins APRN) Social History: the patient stated that she has been binge drinking for at least 2 weeks with vodka. She had gone through alcohol rehab the summer and does not want her family to know that she had a lapse. She is . She is a full code. She works at [employer] at this time. She smokes about a pack cigarettes a day for many years. Occasionally smokes marijuana. No other illicit drugs. She just moved in with her mother. She works for [employer]. She has 1 child he was 11 years old and he is currently on vacation with his father. 06/08/2025 reports 300 days sober Code status full code Smoking packs per day: 1 Smoking cigarettes per day: 20.0 Years smoked: 16 Smoking pack-years: 16.00 Smoking status: Current every day smoker Tobacco type: cigarettes Alcohol intake: former Drinks per week: 12 Alcohol use details: admits to some alcohol use 03/24/2022 but denies daily use ( 06/07/2025 300 days sober) Substance use: current Substance use type: marijuana Other substance usage details: Fifth of vodka a day Last use: 03/31/22 Living arrangements: with family Occupation/Education: occupation Additional occupation/education comments: [employer] Gender identity (if verbalized by the patient): Female Spiritual care concerns: No Comments At time of signature agree with nursing documentation of past medical,surgical, social and family history.There is no relevant family history pertinent to presenting complaint Exam Narrative: GENERAL: Well-appearing, well-nourished, and in no acute distress. HEAD: Normocephalic, atraumatic. EYES: PERRLA and EOMI. ENT: Nares clear, no rhinorrhea or epistaxis. Mucous membranes moist.TM's normal, throat pink with no lesions or exudates, no tonsil swelling NECK: Supple. no lymphadenopathy CHEST: Clear to auscultation. No respiratory distress.SAO2 100% on room air HEART: Regular rate and rhythm. No murmur heard. Normal peripheral pulses. ABDOMEN: Soft,denies any abdominal pain reports a little crampy with diarrhea,, nondistended, hyper -active bowel sounds,no McBurney point tenderness, last emesis 0700, 6 diarrhea stools today EXTREMITIES: Normal range of motion. No edema. SKIN: Warm, dry, no rash. NEURO: No focal deficits. Alert and oriented x3. Const: Other: . Course Course Level of Care: Express Care Visit Vital Signs Vital signs: Vital Signs Temperature 36.8 C 06/07/25 15:42 Pulse Rate 86 06/07/25 15:42 Respiratory Rate 18 06/07/25 15:42 Blood Pressure 148/88 H 06/07/25 15:42 Pulse Oximetry 100 06/07/25 15:42 Oxygen Delivery Room Air 06/07/25 15:42 Temperature 36.8 C 06/07/25 15:42 Pulse Rate 86 06/07/25 15:42 Respiratory Rate 18 06/07/25 15:42 Blood Pressure 148/88 H 06/07/25 15:42 Pulse Oximetry 100 06/07/25 15:42 Oxygen Delivery Room Air 06/07/25 15:42 reviewed MDM - Nausea/Vomiting/Diarrhea MDM Narrative Medical decision making narrative: Patient instructed that if pain increases or if diarrhea continues then go to nearest ED for further evaluation with understanding voiced. Differential Diagnosis Differential diagnosis: Likely traveler's diarrhea, gastroenteritis and other (colitis, diverticulitis,diarrhea, viral syndrome) Medical Records Attestation: I reviewed the patient's medical records. Lab Data Labs: Lab Results 06/07/25 Range/Units 16:20 POC Grp A Strep Screen Negative (Negative) reviewed Critical Care Time Critical Care Time Critical Care Time: No Discharge Plan Discharge Clinical Impression: Gastroenteritis Patient Disposition: Home Condition: Stable Instructions: Antibiotic Form, Gastroenteritis (ED) Additional Instructions: Clear liquids for the next 8-10 hours, then advance to a bland diet as tolerated A bland diet can consist of--BRAT diet which is bananas, rice, applesauce, and toast Avoid fried, greasy, fatty, fried foods Avoid caffeine, nicotine, and alcohol Return to your regular diet in the next 3-4 days Medication as directed for nausea and vomiting Sometimes ibuprofen/Aleve can cause increased stomach upset take Tylenol for any pain [id number] Imodium if develop diarrhea Follow-up with her PCP if continued problems or uncontrolled pain if any pain to abdomen increased nausea vomiting and diarrhea go to emergency room for further evaluation Your strep test today was negative. A throat culture will be sent to the laboratory for further testing. IF the test is positive, you will receive a phone call within 48 hours and an appropriate antibiotic will be initiated at that time. Patient Language: Tajik Prescriptions: New ondansetron 4 mg tablet,disintegrating 4 mg PO Q6H PRN (Reason: nausea and vomiting) Qty: 20 0RF Rx Instructions: whatever preparation is covered by insurance dicyclomine 20 mg tablet 20 mg PO TID Qty: 20 0RF Rx Instructions: for any abdominal cramping No Action omeprazole 20 mg capsule,delayed release(DR/EC) 20 mg PO DAILY Follow-up/Referrals: Yovani Cardona MD [Primary Care Provider, Internal Medicine] Stand Alone Forms: Work/School Release IP Time of Disposition: 16:25 Quality [place] Coma Scale Eyes: Open Verbal: Oriented and Alert Motor: Follows Commands [place] Coma Total Score: 15
[2025-06-07 16:20] LABS: EDSTREPNEGPOS1 Negative (Negative)
--- OUTSIDE RECORDS SUMMARY | 2025-06-07 18:09 | XMS_ITS | Clinical Summary ---
Author Organization [place] [id number] [facility] Address [address] [place] [address] Care Team Providers Care Propeller Engineer Name Role Phone Yovani Cardona MD Primary Care Provider [phone] Steven Gerardo MD Unavailable [phone] Lorena Walker MD Unavailable [phone] Allergies Active Allergy Reactions Criticality Noted Date Comments Green Dye Itching Low 12/18/2019 Hydrocodone-Acetaminophen Nausea & Vomiting Low Morphine Nausea & Vomiting Low 04/27/2020 Medications omeprazole (PriLOSEC) 20 mg capsuleIndicati ons:Heartburn Prevention Take 1 capsule (20 mg total) by mouth every morning Active acetaminophen 500 mg capsuleIndicati ons:Pain Take 2 capsules (1,000 mg total) by mouth every 6 (six) hours 30 tablet 01/21/2023 Active ibuprofen 200 mg tab/cap Take 1 tablet/capsul e (200 mg total) by mouth as needed for pain Active nicotine (NICODERM CQ) [address] 1 patch on the skin as needed Active oxyCODONE (ROXICODONE) 5 mg immediate release tabletIndicatio ns:Pain Take 1 tablet (5 mg total) by mouth every 4 (four) hours as needed for pain 10 tablet 10/14/2023 Active cyclobenzaprine (FLEXERIL) 10 mg tablet Take 1 tablet (10 mg total) by mouth 3 (three) times a day as needed for muscle spasms 15 tablet 10/14/2023 Active docusate sodium (COLACE) 100 mg capsuleIndicati ons:constipatio n Take 1 capsule (100 mg total) by mouth 2 (two) times a day 30 capsule 10/14/2023 Active Active Problems Problem Noted Date Diagnosed Date Recurrent incisional hernia with incarceration 1 09/02/2022 History of incisional hernia repair 07/02/2023 History of salpingo-oophorectomy 07/02/2023 History of low anterior resection of rectum 06/18 Pelvic abscess in female 08/06/2022 Overview (08/06/2022): Added automatically from request for surgery [id number] Pre-op testing 08/06/2022 Overview (08/06/2022): Added automatically from request for surgery [id number] Anxiety 05/13/2022 Depression with anxiety 05/13/2022 PTSD (post-traumatic stress disorder) 05/13/2022 ETOH abuse 05/13/2022 Hypertension 05/13/2022 Smoker 05/13/2022 Hepatic steatosis 05/16/2021 Hypomagnesemia 05/16/2021 Pancreatic cyst 05/16/2021 Colitis with abscess 05/15/2021 Sepsis 05/15/2021 Acute hypokalemia 04/28/2020 Acute alcoholic pancreatitis 04/27/2020 ARDS (adult respiratory distress syndrome) 01/10 Tubo-ovarian abscess 01/07/2019 RLQ abdominal pain 01/06/2019 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 Overview (05/13/2022): EF 36% Resolved Problems Problem Noted Date Diagnosed Date Resolved Date Ileostomy in place 01/12/2023 3 Surgical History Surgery Date Site/Laterality Comments HERNIA REPAIR x 5 (laparoscopic and no mesh per patient) SALPINGECTOMY 07/19/2018 - 07/18/2019 Right LOW ANTERIOR BOWEL RESECTION 10/01/2022 N/A Open lysis of adhesions low anterior resection diverting loop ileostomy partial excision of abdominal mesh HYSTERECTOMY ILEOSTOMY CLOSURE 01/18/2023 Medical History Medical History Date Comments Ulcerative colitis HTN (hypertension) Depression Anxiety Ileostomy in place (HCC) 01/12/2023 Family History Medical History Relation Name Comments No Known Problems Brother 1 No Known Problems Brother 2 No Known Problems Child Unknown Family History Father Cervical cancer Mother Thyroid disease Mother Anesthesia problems Neg Hx Relation Name Status Comments Brother 1 Alive Brother 2 Alive Child Alive Father Alive Mother Alive Social History Tobacco Use Types Packs/Day Years Used Date Smoking Tobacco: Former Cigarettes Passive Smoke Exposure: Current Smokeless Tobacco: Never Tobacco Cessation:Counseling Given: Not Answered OASIS D0700: Social Isolation Answer Da te Recorded Frequency of experiencing loneliness or isolatio n Never 10/11/2022 AUDIT-C Answer Date Recorded Frequency of Alcohol Consumption Not on file 09/24/2023 Q2: How many drinks containi ng alcohol do you have on a typical day when you are drinking? Patient does not drink Frequency of Binge Drinking Not on file 02/2024 Personal Safety Answer Date Recorded Have you ever been in or are you currently in a harmful physical or emotional relationship or is someone making you feel afraid or unsafe? Denies 10/12/2023 Comments No Sex and Gender Information Value Date Recorded Sex Assigned at Not on file Legal Sex Female 3:27 PM CDT Gender Identity Not on file Sexual Orientation Not on file Obstetrics History Para Term AB IAB SAB Ectopic Multiple Livin g Live Births 1 1 1 1 1 Date Outcome GA Total Labor Labor/2nd/3rd Weight Sex Type Anes PTL Hilda A1 A5 Name Clin Term Last Filed Vital Signs Vital Sign Reading Time Taken Comments Blood Pressure 102/80 10/14/2023 8:36 AM CDT Pulse 66 10/14/2023 8:36 AM CDT Temperature 36.6 C (97.9 F) 10/14/2023 8:36 AM CDT Respiratory Rate 18 10/14/2023 8:36 AM CDT Oxygen Saturation 96% 10/14/2023 8:36 AM CDT Inhaled Oxygen Concentration - - Weight 97.5 kg (215 lb) 10/13/2023 7:45 AM CDT Height 170.2 cm (5' 7) 10/13/2023 7:45 AM CDT Body Mass Index 33.67 10/13/2023 7:45 AM CDT Plan of Treatment Health Maintenance Due Date Last Done Comments Depression Screening 1991 Hepatitis C Screening 1991 DTaP/Tdap/Td Vaccine (1 - Tdap) 2002 Varicella Vaccines (1 of 2 - 13+ 2-dose series) 2003 Hepatitis B Screening 2009 Regular Well Visit/Exam 18-64 2009 Pneumococcal vaccine <65 (1 of 2 - PCV) 2010 HPV Vaccines (1 - 3-dose SCDM series) 2018 Influenza Vaccine (#1) 2025 Medical Devices Implanted Type Area Interceptor Operator Device Identifier Shelf Expiration Date Model / Serial / Lot [employer]/C R Bard [id number] Bard 20o17kt Monofilament Soft Lightweight Low Profile Square - [id number] Implanted:Qty: 1 on 10/11/2023 by Chris Shearer MD at [facility] Mesh N/A: Abdomen [employer]/C R Bard [id number] 12/13/2026 [id number] / / [id number] Explanted Type Area Interceptor Operator Device Identifier Shelf Expiration Date Model / Serial / Lot [employer] Inlay [place] 6fr 26cm Pusher Fluoro Marker Atraumatic Insertion Latex Free [id number] - [id number] Implanted:Qty: 1 on 09/30/2022 by Laurel aGllardo MD at [facility] Explanted:Qty: 1 on 10/22/2022 by Nicolas Navarro MD Stent Left: Ureter [employer] [id number] 09/16/2026 [id number] / / [id number] [employer] Inlay [place] 6fr 26cm Pusher Fluoro Marker Atraumatic Insertion Latex Free [id number] - [id number] Implanted:Qty: 1 on 09/30/2022 by Laurel Gallardo MD at [facility] Explanted:Qty: 1 on 10/22/2022 by Nicolas Navarro MD Stent Right: Ureter [employer] [id number] 09/16/2026 [id number] / / [id number] Insurance [employer] [facility] CIGNA OPEN ACCESS IDPA [employer] [facility] Advance Directives For more information, please contact: [phone] * Full Code (Latest Code Status on File) Date Activated Date Inactivated Comments 10/11/2023 8:53 PM 10/14/2023 4:41 PM * Full Code Date Activated Date Inactivated Comments 01/18/2023 1:48 PM 01/21/2023 6:27 PM * Full Code Date Activated Date Inactivated Comments 09/30/2022 6:47 PM 10/09/2022 9:57 PM * Full Code Date Activated Date Inactivated Comments 09/25/2022 9:20 AM 09/25/2022 3:41 PM Care Teams Propeller Engineer Relationship Specialty Start Date End Date Yovani Cardona MD PCP - General Internal Medicine 04/14/22 Steven Gerardo MD [address] [facility] [place] [id number] [place] [address] Surgeon Colon and Rectal Surgery 08/04/22 [place] [address] [place] [id number] Consulting Physician Gynecologic Oncology 08/04/22
--- OUTSIDE RECORDS SUMMARY | 2025-06-07 18:09 | XMS_ITS | Clinical Summary ---
Author Organization [facility] Address [address] [place] [address] Care Team Providers Care Lapel Padder Name Role Phone Unavailable Primary Care Provider Unavailabl e Source Comments [facility],non-owned Affiliates and Associated Physician Practices is amultiple site organization consisting of ambulatory clinics and hospital sitesin [place], [place], [place] and [place]. This disclosure is being madepursuant to the Care Everywhere program and may not contain all information available regarding this patient. Last updated 18.[facility] Allergies Active Allergy Reactions Criticality Noted Date Comments Morphine Nausea and/or Vomiting Low 03/31/2024 Medications * Be aware that medications may not be up to date on this document. Alwaysverify current medications with the patient. omeprazole (PriLOSEC) 20 MG capsule Take 1 (one) capsule by mouth 2 times daily, before breakfast and supper Active acetaminophen (Tylenol) 500 MG tablet Take 1 (one) tablet by mouth every 6 hours as needed Maximum allowable Acetaminophen amount = 4 Grams (4000 mg) / 24 hours. 4 Active diphenhydrAMIN E (Benadryl) 50 MG capsule Take 1 (one) capsule by mouth every 6 hours as needed for Itching 30 capsule 4 Active lidocaine (Lidoderm) 5 % patch Apply 1 (one) patch to skin every 24 hours Apply patch to most painful area and remove after 12 hours. May reapply a new patch 12 hours later. 30 patch 4 Active folic acid (Folvite) 1 MG tablet Take 1 (one) tablet by mouth once daily 30 tablet 1 4 Active nicotine polacrilex (Nicorette) 2 MG gumIndications :Nicotine Dependence Take 1 (one) Each by mouth every 2 hours as needed for Smoking Cessation Reasons: Nicotine Addiction 30 Each 4 Active nicotine (Nicoderm CQ) 7 MG/24HR patchIndicatio ns:Tobacco use Apply 1 (one) patch to skin once daily 30 patch 1 4 Active multiple vitamins with minerals tablet Take 1 (one) tablet by mouth once daily 4 Active Additional Information Patient not taking.Reported on 04/18/2024 thiamine (Vitamin B-1) 100 MG tablet Take 1 (one) tablet by mouth once daily 30 tablet 1 4 Active Additional Information Patient not taking.Reported on 04/18/2024 saline nasal spray ([place]; Baby [place]) 0.65 % nasal spray [place] 1 (one) spray into each nostril every 30 minutes as needed for Dry Nose 15 mL 2 4 Active Additional Information Patient not taking.Reported on 04/18/2024 capsaicin (Zostrix) 0.025 % cream Apply to affected area 3 times daily 120 g 2 4 Active acamprosate calcium EC (Campral) 333 MG tablet Take 2 (two) tablets by mouth 3 times daily 120 tablet 2 4 Active Vitamin D, Ergocalciferol , 07800 units CAPS Take 1 (one) capsule by mouth every 7 days Active potassium chloride ER (Micro-K) 10 MEQ capsule Take 1 (one) capsule by mouth 2 times daily Active furosemide (Lasix) 20 MG tablet Take 1 (one) tablet by mouth 2 times daily Active melatonin 10 MG capsule Take 1 (one) capsule by mouth at bedtime - uses the gummy version Active apixaban (Eliquis) 5 MG tablet Take 1 (one) tablet by mouth 2 times daily until October 02, 2024 for portal vein thrombosis. 60 tablet 4 4 Active Active Problems Problem Noted Date Diagnosed Date Hospital discharge follow-up 04/18/2024 Pain and swelling of lower extremity 04/18/2024 Anemia of chronic disease 04/02/2024 Folate deficiency 04/02/2024 Hypocalcemia 04/02/2024 Depression 04/02/2024 Abdominal hernia 04/02/2024 Portal vein thrombosis 04/02/2024 Septic shock 04/01/2024 Obstructive jaundice 04/01/2024 Acute kidney injury 04/01/2024 Anemia 04/01/2024 Hypovolemic shock 04/01/2024 Hypophosphatemia 04/01/2024 Hypomagnesemia 04/01/2024 Hyponatremia 04/01/2024 Tobacco use 04/01/2024 Acute cholecystitis 03/31/2024 History of alcohol use disorder 03/31/2024 Jaundice 03/31/2024 GERD (gastroesophageal reflux disease) Hypokalemia 03/31/2024 Leukocytosis 03/31/2024 Hypotension 03/31/2024 Recurrent incisional hernia with incarceration 1 09/02/2022 History of salpingo-oophorectomy 07/02/2023 History of incisional hernia repair 07/02/2023 History of low anterior resection of rectum 06/18 Pelvic abscess in female 08/06/2022 Overview (03/31/2024): Added automatically from request for surgery [id number] ETOH abuse 05/13/2022 PTSD (post-traumatic stress disorder) 05/13/2022 Depression with anxiety 05/13/2022 Anxiety 05/13/2022 Smoker 05/13/2022 Pancreatic cyst 05/16/2021 Colitis with abscess 05/15/2021 Acute alcoholic pancreatitis 04/27/2020 Tubo-ovarian abscess 01/07/2019 Resolved Problems Problem Noted Date Diagnosed Date Resolved Date 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 Never 03/31/2024 Q2: How many drinks containi ng alcohol do you have on a typical day when you are drinking? Patient does not drink Q3: How often do you have si x or more drinks on one occasion? Never 03/31/2024 Overall Financial Resource Strain (CARDIA) Answe r Date Recorded How hard is it for you to pa y for the very basics like food, housing, medical care, and heating? Not hard at all 03/31/2024 [facility] - Occupational Stress Questionnaire Answer Date Recorded Do you feel stress - tense, restless, nervous, or anxious, or unable to sleep at night because your mind is troubled all the time - these days? Only a little 03/31/2024 Hunger Vital Sign Answer Date Recorded Within the past 12 months, y ou worried that your food would run out before you got the money to buy more. Never true 03/31/20 24 Within the past 12 months, t he food you bought just didn't last and you didn't have money to get more. Never true 03/31/2024 PRAPARE - Transportation Answer Date Re corded In the past 12 months, has l ack of transportation kept you from medical appointments or from getting medications? No 03/19 In the past 12 months, has l ack of transportation kept you from meetings, work, or from getting things needed for daily living? No 03/31/2024 Housing Stability Vital Sign Answer Mic e Recorded In the last 12 months, was t here a time when you were not able to pay the mortgage or rent on time? No 03/31/2024 In the last 12 months, how many places have you lived? 1 03/31/2024 In the last 12 months, was t here a time when you did not have a steady place to sleep or slept in a chcf (including now)? 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 Gender Identity Not on file Sexual Orientation Not on file Last Filed Vital Signs Vital Sign Reading Time Taken Comments Blood Pressure 130/76 04/06/2024 11:33 AM CDT Pulse 95 04/06/2024 11:33 AM CDT Temperature 36.7 C (98 F) 04/06/2024 11:33 AM CDT Respiratory Rate 18 04/18/2024 12:5 8 PM CDT Oxygen Saturation 95% 04/06/2024 11: 33 AM CDT Inhaled Oxygen Concentration - - Weight 108.8 kg (239 lb 12.8 oz) 04/06/2024 4:51 AM CDT Height 170.2 cm (5' 7) 04/18/2024 12:5 8 PM CDT Body Mass Index 37.64 04/02/2024 11:13 PM CDT Plan of Treatment Health Maintenance Due Date Last Done Comments HIV SCREENING 2006 DTAP/TDAP/TD VACCINES (1 - Tdap) 2010 HEPATITIS B VACCINE (1 of 3 - 19+ 3-dose series) 2010 PNEUMOCOCCAL VACCINE (1 of 2 - PCV) 2010 PAP SMEAR 02/29/2012 HPV VACCINE (1 - 3-dose SCDM series) 2018 Cervical Cancer Screening 2021 PAP with HPV 2021 DEPRESSION SCREENING 07/19/2024 COVID-19 VACCINE (1 - 2024-2 6 season) 2025 INFLUENZA VACCINE (#1) 2025 ZOSTER VACCINE (1 of 2) 2041 HEPATITIS C SCREENING Completed 04/01/2024 HIB VACCINE Aged Out No longer eligi ble based on patient's age to complete this topic MENINGOCOCCAL (Group B) VACC INE SHARED DECISION-MAKING Aged Out No longer eligibl e based on patient's age to complete this topic MENINGOCOCCAL GROUPS A/C/Y/W VACCINE Aged Out No longer eligible b ased on patient's age to complete this topic Procedures Procedure Name Priority Date/Time Associated Diagnosis Comments HEPATITIS SCREEN ACUTE Routine 04/01/2024 1:58 AM CDT from Last 3 Months or Most Recently Relevant to Health Maintenance Results * HEPATITIS SCREEN ACUTE (04/01/2024 1:58 AM CDT) Hepatitis A Virus Antibody IgM Non-react nirmala Non-reac tive 04/01/2024 2:46 AM CDT [facility] Hepatitis B Virus Surface Antigen Non-react nirmala Non-reac tive 04/01/2024 2:46 AM T [facility] Hepatitis B Core Virus Antibody IgM Non-react nirmala Non-reac tive 04/01/2024 2:46 AM CDT [facility] Hepatitis C Antibody Non-react nirmala Non-reac tive 04/01/2024 2:46 AM [facility] Comment:Hepatitis C Antibody screen indicates no serologic evidence of past or current infection with Hepatitis C Virus. Patients with unexplained liver disease who are immunocompromised or suspected of having acute Hepatitis C infection may benefit from Nucleic Acid Test (JOANN) for Hepatitis C Viral RNA to confirm Hepatitis C status. Blood BLOOD SPECIMEN / Unknown Venipuncture / Unknown 04/01/2024 1:58 AM CDT 04/01/2024 2:03 AM CDT Av Mcadams MD LAB - CHEMISTRY ORDERABLES F inal Result [facility] [address] [place] [address], [facility] [phone] from Last 3 Months or Most Recently Relevant to Health Maintenance Insurance [facility] MEDICAID [facility] Advance Directives * Full Code (Latest Code Status on File) Date Activated Date Inactivated Comments 03/31/2024 5:37 PM 04/06/2024 4:02 PM
--- OUTSIDE RECORDS SUMMARY | 2025-06-07 18:09 | XMS_ITS | Clinical Summary ---
Author Organization [facility] Address [address] [place] [address] Phone Care Team Providers Care Body Technician/Painter Name Role Phone Yovani Cardona MD Primary Care Provider [phone] Allergies Active Allergy Reactions Criticality Noted Date Comments Morphine Vomiting 05/14/2021 Hydrocodone-Acetaminophen Vomiting 05/14/2021 Medications lisinopril (PRINIVIL, ZESTRIL) 20 MG Tablet Take 20 mg by mouth daily. Active ondansetron (ZOFRAN-ODT) 4 MG TABLET DISPERSIBLE Take 1 Tablet by mouth every 6 hours as needed for Nausea - 1st line. 30 Tablet 05/16/2021 Active thiamine (VITAMIN B1) 100 MG Tablet Take 1 Tablet by mouth daily. 30 Tablet 05/16/2021 Active folic acid (FOLVITE) 1 MG Tablet Take 1 Tablet by mouth daily. 30 Tablet 05/16/2021 Active zolpidem (AMBIEN) 5 MG TabletIndication s:Primary insomnia Take 1 Tablet by mouth nightly as needed for Sleep. 30 Tablet 05/16/2021 Active metroNIDAZOLE (FLAGYL) 500 MG Tablet Take 1 Tablet by mouth 3 times daily. 30 Tablet 05/16/2021 Active magnesium oxide (MAG-OX) 400 MG Tablet Take 1 Tablet by mouth daily. 30 Tablet 05/16/2021 Active potassium chloride (MICRO-K) 10 MEQ Capsule CR Take 1 Capsule by mouth 2 times daily. 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 Overview (05/14/2021): EF 36% Anxiety Depression ETOH abuse Hypertension PTSD (post-traumatic stress disorder) Alcoholic pancreatitis Social History Tobacco Use Types Packs/Day Years Used Date Smoking Tobacco: Every Day Cigarettes Smokeless Tobacco: Never Tobacco Cessation:Ready to Q uit: Not Asked; Counseling Given: Not Answered Alcohol Use Standard Drinks/Week Comments Not Currently 0 (1 standard drink = 0.6 oz pur e alcohol) 1/5 vodka daily Comments No Sex and Gender Information Value Date Recorded Sex Assigned at Not on file Legal Sex Female 10:56 PM CDT Gender Identity Not on file Sexual Orientation Not on file Last Filed Vital Signs Vital Sign Reading Time Taken Comments Blood Pressure 126/70 04/13/2024 6:30 PM CDT Pulse 90 04/13/2024 6:30 PM CDT Temperature 36.4 C (97.6 F) 04/13/2024 6:30 PM CDT Respiratory Rate 18 04/13/2024 6:30 PM CDT Oxygen Saturation 100% 04/13/2024 6:30 PM CDT Inhaled Oxygen Concentration - - Weight 90.7 kg (200 lb) 04/13/2024 12:46 PM CDT Height 172.7 cm (5' 8) 04/13/2024 12:46 PM CDT Body Mass Index 30.41 04/13/2024 12:46 PM CDT Plan of Treatment Health Maintenance Due Date Last Done Comments TdaP Immunization 1991 Varicella Immunization (1 of 2 - 13+ 2-dose series) 02/29/2004 Hepatitis B Immunization (1 of 3 - 19+ 3-dose series) 2010 Pneumococcal Immunization Combined (1 of 2 - PCV) 2010 Human Papillomavirus (HPV) Immunization (1 - 3-dose SCDM series) 2018 Influenza Immunization (#1) 2025 SARS-COV-2 Immunization ( - 2024- season) 2025 Respiratory Syncytial Virus (RSV) Immunization (Adult) (1 - 1-dose 75+ series) 2066 Hepatitis C Virus (HCV) Screening Completed 04/01/2024, 03/31/2024 Meningococcal Immunization (ACWY) Aged Out No longer eligible b ased on patient's age to complete this topic Rotavirus Immunization Aged Out No lo nger eligible based on patient's age to complete this topic Procedures Procedure Name Priority Date/Time Associated Diagnosis Comments HEPATITIS PANEL ACUTE (AHP) STAT 03/31/2024 8:54 AM CDT from Last 3 Months or Most Recently Relevant to Health Maintenance Results * Hepatitis Panel Acute (AHP) (03/31/2024 8:54 AM CDT) HEPATITIS A IGM ANTIBODY NON DETECTED NON DETECTED 03/31/2024 3:34 PM CDT [facility] Comment: IGM Antibodies to HAV not detected. Does not exclude early acute or recovered HAV infection. HEP B CORE AB (IGM) NON DETECTED NON DETECTED 03/31/2024 3:34 PM CDT [facility] Comment:IGM anti-HBC not det ected. Does not exclude the possibility of exposure to or infection with HBV. HEPATITIS B SURFACE ANTIGEN NON DETECTED NON DETECTED 03/31/2024 3:34 PM CDT [facility] Comment:A nonreactive test r esult does not exclude the possibility of exposure to or infection with Hepatitis B virus. A nonreactive test result in individuals with prior exposure to hepatitis B may be due to antigen levels below the detection limit of this assay or lack of antigen reactivity to the antibodies in this assay. hepatitis C antibody 0.08 <1 S/CO 03/31/2024 3:34 PM CDT [facility] Comment: Signal/Cutoff ratio < 0.79 is Nondetected Signal/Cutoff ratio 0.80-0.99 is Grayzone Signal/Cutoff ratio > 0.99 is Detected Supplemental assays are recommended if signal/cutoff ratio is >/=1.00. Signal/cutoff ratio result >/= 5.00 is 97% predictive of positivity for recombinant immunoblot assay (RIBA) and will be reported to the [place] Department of Public Health as required. Blood Venipuncture / Unknown 03/31/2024 8:54 AM CDT 03/31/2024 9:03 AM CDT us Tom Casper DO HEMATOLOGY ORDERABLES F inal Result [facility] [address] [place] [address], [place] from Last 3 Months or Most Recently Relevant to Health Maintenance Insurance MEDICAID [employer] [facility] Advance Directives * Full Code (Latest Code Status on File) Date Activated Date Inactivated Comments 05/14/2021 11:34 PM 05/16/2021 3:44 PM CPR-Full Treatment: FULL ARREST: Attempt Resuscitation/CPR wit intubation and mechanical ventilation. PRE-ARREST: Use entire range of life support measures to stabilize the patient. Care Teams Body Technician/Painter Relationship Specialty Start Date End Date Yovani Cardona MD [address] [place] [address] PCP - General Internal Medicine 05/14/21
== END 2025-06-07 16:44 | disposition home or self-care (01) ==
PROVIDERS: Emergency Provider Registered Nurse; PCP Internal Medicine
DX: K52.9 Noninfective gastroenteritis and colitis, unspecified (principal); F17.210 Nicotine dependence, cigarettes, uncomplicated; I34.1 Nonrheumatic mitral (valve) prolapse; I10 Essential (primary) hypertension; K21.9 Gastro-esophageal reflux disease without esophagitis; M19.90 Unspecified osteoarthritis, unspecified site
CPT/HCPCS: 87081; 87880; 99213; G0463